=== PATIENT | female | born 1960 | race Caucasian/White ===

== ENCOUNTER 2022-03-30 10:52 | Inpatient (IN) | payer OTHER, SELFPAY ==
[2022-03-30] VITALS (36 sets, daily range): BP systolic 101–165; BP diastolic 86–124; PULSE 96–169; RESP 16–30; TEMP 36.2–36.9; O2SAT 95–100
--- NOTE | ~2022-03-30 | XR_ITS ---
EXAMINATION: XR chest 2V DATE: 04/01/2022 14:38 INDICATION: Shortness of breath TECHNIQUE: PA and lateral views of the chest are obtained. COMPARISON: 03/30/2022 FINDINGS: There are increasing airspace opacities of the lung bases. Small pleural effusions are pres ent. There is no pneumothorax. The cardiomediastinal silhouette is normal. There is mild thoracic spo ndylosis. A suture anchor is noted in right humeral head. IMPRESSION: 1. Increasing airspace opacities of the lung bases, consistent with atelectasis versus pneumonia. 2. Small pleural effusions. Reviewed, dictated and finalized at location A.
--- NOTE | ~2022-03-30 | XR_ITS ---
EXAMINATION: XR chest 2V DATE: 03/30/2022 11:56 INDICATION: Cough and chest pain TECHNIQUE: AP and lateral views of the chest are obtained. COMPARISON: None available FINDINGS: There are airspace opacities of the lower lobes and right middle lobe. Small pleural effusi ons are present. There is no pneumothorax. The cardiomediastinal silhouette is normal. There is mild thoracic spondylosis. IMPRESSION: 1. Airspace opacities of the lung bases and right middle lobe, consistent with atelectasis versus pne umonia. 2. Small pleural effusions. Reviewed, dictated and finalized at location A. IMPRESSION: 1. Airspace opacities of the lung bases and right middle lobe, consistent with atelectasis versus pneumonia. 2. Small pleural effusions.
--- NOTE | ~2022-03-30 | CT_ITS ---
EXAMINATION: CTA chest PE protocol DATE: 03/30/2022 13:48 INDICATION: Chest pain and cough TECHNIQUE: Computed tomography angiography (CTA) of the chest was performed with 100 mL Omnipaque-350 intravenous contrast timed to evaluate the pulmonary arteries. Coronal maximum intensity projection 3D-reconstructions were created by the technologist. The dose-length product (DLP) was 233.02 mGy-cm. Automated exposure control and iterative reconstruction technique were employed. COMPARISON: None. FINDINGS: The pulmonary arteries are well-opacified. No pulmonary embolism is identified. There are s mall pleural effusions, right greater than left. There is no pneumothorax. Mild emphysema is noted. T here is minimal dependent atelectasis. The lungs are free of focal airspace opacities. There is mild bilateral hilar lymphadenopathy, likely reactive. The heart size is normal. There is mild thoracic sp ondylosis. IMPRESSION: 1. No pulmonary embolus. 2. Small pleural effusions, right greater than left. Reviewed, dictated and finalized at location A.
--- NOTE | 2022-03-30 10:53 | ECG_ITS ---
Measurements Intervals [place] Rate: 162 P: SD: 0 QRS: 78 QRSD: 75 T: 43 QT: 268 QTc: 440 Interpretive Statements ATRIAL FIBRILLATION WITH RAPID VENTRICULAR RESPONSE POOR R-WAVE PROGRESSION NONSPECIFIC ST SEGMENT CHANGES ABNORMAL RHYTHM ECG NO PREVIOUS ECG AVAILABLE FOR COMPARISON Electronically Signed On 03-31-2022 7:05:06 CDT by Gasper Baptiste M.D.
[2022-03-30] MEDS: SODIUM CHLORIDE 0.9% IV 1,000 ML 999 ML IV CONT ×2 (11:18→11:28)
--- NOTE | 2022-03-30 11:18 | ED.GENADULT ---
HPI - General Adult General Chief complaint: Chest Pain Stated complaint: chest pain Time Seen by Provider: 03/30/22 11:09 History of Present Illness HPI narrative: 61-year-old female with history of daily drinking presents to the emergency department for evaluation of rapid heart rate for approximately the last week. Patient states that when she wakes up in the morning she feels that her has been racing. Patient has not had follow-up with her primary care physician for this previously. Patient denies any prior history of PA. Patient denies any prior history of atrial fibrillation, PE or DVT. Patient denies any associated chest pain with this but states she does have some shortness of breath. Patient states she does drink beer occasionally but denies drinking heavily daily. Patient denies any prior history of alcohol withdrawal. Related Data Home Medications Medication Instructions Recorded Confirmed No Home Medications 03/30/22 03/30/22 Allergies Allergy/AdvReac Type Severity Reaction Status Date / Time No Known Allergies Allergy Unknown Verified 03/30/22 11:16 Review of Systems Review of Systems: CONSTITUTIONAL: Denies fever, chills, or sweats. EYES: Denies visual changes, redness, or discharge. ENT: Denies rhinorrhea, congestion, sore throat, or otalgia. CARDIOVASCULAR: Denies chest pain but does report her palpitations for the past week, see HPI RESPIRATORY: Denies cough or dyspnea. GASTROINTESTINAL: Denies abdominal pain, nausea, vomiting, or diarrhea. GENITOURINARY: Denies dysuria or hematuria. SKIN: Denies rash or itching. MUSCULOSKELETAL: Denies back pain, joint pain, or myalgia. NEUROLOGIC: Denies headache, numbness, or weakness. PSYCHIATRIC: Denies anxiety or depression. [facility] Past Medical History Medical History (Updated 03/30/22 @ 18:27 by Bryan Watson MD) Daily consumption of alcohol Hypertension Nicotine dependence Surgical History Surgical History (Updated 03/30/22 @ 17:01 by Vickie Cruz PA-C) History of colonoscopy with polypectomy History of open reduction and internal fixation (ORIF) procedure Repair right 2nd toe fracture. History of repair of right rotator cuff Family History Family History Mother COPD (chronic obstructive pulmonary disease) Father Metastatic lung cancer (metastasis from lung to other site) Social History Social History (Updated 03/30/22 @ 17:02 by Vickie Cruz PA-C) Social History: Surrogate decision maker: Monico Fabian, spouse. Code status: Full code. Smoking packs per day: 1 Smoking cigarettes per day: 20.0 Years smoked: 45 Smoking pack-years: 45.00 Smoking status: Current every day smoker Tobacco type: cigarettes Alcohol intake: current Drinks per week: 24 Substance use: never Living arrangements: with family Additional living arrangements comments: The patient lives with her in [place]. They have 1 adult son and 4 grandsons. Additional occupation/education comments: Works in [employer] for [employer]. Spiritual care concerns: No Exam Narrative: APPEARANCE: Well appearing, no pain, no distress, well-nourished. HEAD: normocephalic, atraumatic. EYES: PERRLA/EOMI, conjunctivae clear. NOSE: Normal no drainage. THROAT: Pharynx clear, no exudate. NECK: Supple. No adenopathy, no masses. RESPIRATORY: Airway patent, respirations nonlabored. Clear to auscultation bilaterally, no rales, rhonchi, wheezing. CARDIOVASCULAR: Tachycardia, atrial fibrillation ABDOMINAL: Soft, nontender, nondistended, normal bowel sounds MUSCULOSKELETAL: Moves all extremities. Strength/ROM intact, No edema, No calf tenderness. NEURO: Alert. Cranial nerves II through XII intact. Grossly intact SKIN: Warm, dry. Normal Color Course Course Emergency Course: On EKG patient's heart rate was 162. Patient was started on Cardizem bolus and Cardizem drip for atrial fibrillation
[2022-03-30 11:19] LABS: Basophils Absolute Auto 0.1 K/mm3 (0.0-0.1); Basophils Percent Auto 0.7 % (0.2-1.2); Eosinophils Absolute Auto 0.1 K/mm3 (0-0.3); Eosinophils Percent Auto 0.8 % (0-4.4); Hematocrit 55.2 % (37.0-47.0); Immature Granulocyte Absolute 0.02 K/mm3 (0.00-0.031); Immature Granulocyte Percent A 0.2 % (0-0.5); Lymphocytes Absolute Auto 1.31 K/mm3 (0.9-3.2); Lymphocytes Percent Auto 15.3 % (18.3-44.2); Mean Corpuscular HGB Conc 32.6 g/dl (32-36); Mean Corpuscular Hemoglobin 31.4 pg (26-34); Mean Corpuscular Volume 96.3 fl (80-100); Mean Platelet Volume 11.2 fl (7.4-10.4); Monocytes Absolute Auto 0.7 K/mm3 (0.1-0.6); Monocytes Percent Auto 7.6 % (2.6-8.5); Neutrophils Absolute Auto 6.5 K/mm3 (1.3-6.7); Neutrophils Percent Auto 75.4 % (45.5-73.1); Platelet Count Result 217 k/mm3 (150-375); Red Blood Count 5.73 M/mm3 (4.2-5.4); Red Cell Distribution Width 14.4 % (11.5-14.5); White Blood Count 8.6 K/mm3 (4.5-10.0)
[2022-03-30] MEDS: dilTIAZem HCl INJ 25 MG/5 ML VIAL 10 MG IV PUSH (11:19)
[2022-03-30] MEDS: THIAMINE HCL 200 MG/2 ML VIAL 100 MG IV PUSH (11:27)
[2022-03-30] MEDS: ASPIRIN 81 MG CHEWABLE TABLET 324 MG PO (11:27)
[2022-03-30] MEDS: dilTIAZem 100 MG/100 ML 100 MG/100 ML BAG IV CONT (11:28)
[2022-03-30 11:29] LABS: Alanine Aminotransferase 28 U/L (6-35); Alkaline Phosphatase 156 U/L (38-126); Anion Gap 10 mmol/L (8-16); Aspartate Amino Transferase 39 U/L (14-36); Bilirubin,Total 2.1 mg/dL (0.2-1.3); Blood Urea Nitrogen 9 mg/dL (7-17); Calcium 10.1 mg/dL (8.4-10.2); Carbon Dioxide 25 mmol/L (22-30); Chloride 107 mmol/L (98-107); Estimated CRCL calculation 63 ml/min; Estimated Glomerular Filt Rate > 60; Glucose 100 mg/dL (65-110); Lipase 82 U/L (23-300); Potassium 5.1 mmol/L (3.4-5.0); Sodium 142 mmol/L (137-145)
[2022-03-30 11:34] LABS: INR 1.1; Partial Thromboplastin Time 30.5 SECONDS (22.3-36.8); Prothrombin Time 14.1 Seconds (11.1-14.7)
[2022-03-30 11:40] LABS: Troponin I < 0.012 ng/mL (0.000-0.034)
[2022-03-30 11:56] LABS: Ethanol < 10 mg/dL (<10)
[2022-03-30 11:58] LABS: D Dimer 1.18 ug/mL (<0.48)
[2022-03-30 13:16] LABS: SARS-CoV-2 RNA PCR Negative
[2022-03-30 13:25] LABS: Amphetamine Screen Urine Negative (Negative); Barbiturate Screen Urine Negative (Negative); Benzodiazepines Screen Urine Negative (Negative); Cannabinoid Screen Urine Negative (Negative); Cocaine Screen Urine Negative (Negative); Methadone Screen Urine Negative (Negative); Opiate Screen Urine Negative (Negative); Phencyclidine Screen Urine Negative (Negative)
[2022-03-30 14:22] LABS: Troponin I < 0.012 ng/mL (0.000-0.034)
[2022-03-30] MEDS: ENOXAPARIN 80 MG/0.8 ML SYRINGE 68 MG SUB-Q (15:04)
--- NOTE | 2022-03-30 15:23 | ADMGEN ---
This patient, Loreto Fabian, was admitted to IMU Room 202-01 at 1514.Patient/family oriented to hospital policies and general routines including ID bracelet, bed and alarms, visiting hours, pain management, procedures, bathroom and other care routines, personal items, smoking policy, room service/diet, and visiting hours. Information on how to activate the Rapid Response Team has been discussed. Patient/Family are encouraged to report perceived risks to care and to ask questions if they do not understand what they are told or what they should do.
--- NOTE | 2022-03-30 16:30 | PM.IMHP ---
H&P: HPI History of Present Illness Date/Time: 03/30/22 16:30 Chief Complaint: Palpitations. Narrative: This is a 61-year-old female smoker without significant medical history presented to the emergency department from home for evaluation of palpitations. For the past week or so she has been waking up in the middle of the night with a sensation of racing heart, palpitations, shortness of breath, and and occasional dry cough. Because of the symptoms, she has not been sleeping well and she has been more tired during the day, even nodding off of work. She has been monitoring her blood pressures at home and reports seeing numbers as high as 150/90; previous doctors have said that her blood pressures were bit on the high side however she has not yet needed to be placed on medication. Today she was found to be in atrial fibrillation with rapid ventricular response (ventricular rate was 169 on arrival) and she is being admitted in this setting for further treatment evaluation. She is currently on a Cardizem at 15/hour with improvement in her rate; her symptoms have much improved. She has never had similar symptoms and has no known history of cardiac dysrhythmia, coronary artery disease, valvular heart disease, thyroid disease, or sleep apnea. Typically she will drink 1 to 2 cups of coffee a day and she consumes about 3 cans of beer a night. On occasion she will have an energy drink but that is infrequent. She denies drug use. Review of Systems Review of Systems: Twelve systems were reviewed. No syncope or presyncope. Mild rhinorrhea which she attributes to allergies. She has had a mostly dry cough since these palpitations started. No exertional chest pain. No nausea, vomiting, diarrhea, or constipation. No significant hair loss. No recent change in vision. She had mild pedal edema yesterday but that is improved today. Does endorse mild orthopnea. She and her do not sleep in the same room as both of them snore. She denies paroxysmal nocturnal dyspnea and she has never had any witnessed apneic episodes. No daytime somnolence aside from last week. Except as documented, all other systems were reviewed and are negative. [facility] Past Medical History Medical History (Updated 03/30/22 @ 17:12 by Vickie Cruz PA-C) Daily consumption of alcohol Hypertension Nicotine dependence Surgical History Surgical History (Updated 03/30/22 @ 17:01 by Vickie Cruz PA-C) History of colonoscopy with polypectomy History of open reduction and internal fixation (ORIF) procedure Repair right 2nd toe fracture. History of repair of right rotator cuff Family History Family History Mother COPD (chronic obstructive pulmonary disease) Father Metastatic lung cancer (metastasis from lung to other site) Social History Social History (Updated 03/30/22 @ 17:02 by Vickie Cruz PA-C) Social History: Surrogate decision maker: Monico Fabian, spouse. Code status: Full code. Smoking packs per day: 1 Smoking cigarettes per day: 20.0 Years smoked: 45 Smoking pack-years: 45.00 Smoking status: Current every day smoker Tobacco type: cigarettes Alcohol intake: current Drinks per week: 24 Substance use: never Living arrangements: with family Additional living arrangements comments: The patient lives with her in [place]. They have 1 adult son and 4 grandsons. Additional occupation/education comments: Works in [email or web address] for [employer]. Spiritual care concerns: No Meds Home Medications and Allergies Home Medications Medication Instructions Recorded Confirmed Type No Home Medications 03/30/22 03/30/22 History Allergies Allergy/AdvReac Type Severity Reaction Status Date / Time No Known Allergies Allergy Unknown Verified 03/30/22 11:16 Vital Signs Vital Signs - 24 hr 03/30/22 11:02 03/30/22 11:14 03/30/22 11:28 Temperature 97.1 F L Pulse Rate
[2022-03-30 17:42] LABS: Troponin I < 0.012 ng/mL (0.000-0.034)
[2022-03-30 18:11] LABS: Alveolar/Arterial O2 Gradient 40.9 mmHg; Base Excess ABG -3.1 mEq/l (+/-2.0); Fractional Inspired Oxygen 21 %; HCO3 ABG 19.5 mEq/l (22.0-26.0); Methemoglobin ABG 0.4 %THb (0-1.5); Oxygen Content ABG 21.9 %vol (16.0-22.0); Oxygen Saturation ABG 95.5 % (95.0-100.0); Oxyhemoglobin 93.9 % THb (90.0-100.0); PCO2 ABG 29.4 mmHg (35.0-45.0); PO2 ABG 73.6 mmHg (80.0-100.0); Reduced Hemoglobin 4.7 %THb (0-5.0); Total Hemoglobin 16.6 g/dL (12.0-18.0)
[2022-03-30 18:13] LABS: Modified Allen's Test Pass; Site Drawn RIGHT RADIAL
[2022-03-30] MEDS: dilTIAZem 100 MG/100 ML 100 MG/100 ML BAG 15 MG IV CONT (19:25)
--- NOTE | 2022-03-30 23:19 | PC.NURSE ---
03/30/22 at 2300- Pt placed on apnea link study per RT.
[2022-03-31] VITALS (17 sets, daily range): BP systolic 101–147; BP diastolic 80–97; PULSE 83–119; RESP 15–20; TEMP 36.1–36.9; O2SAT 94–97
[2022-03-31] MEDS: dilTIAZem 100 MG/100 ML 100 MG/100 ML BAG 15 MG IV CONT ×4 (01:21→21:47)
[2022-03-31] MEDS: ENOXAPARIN 80 MG/0.8 ML SYRINGE 65 MG SUB-Q (02:56)
[2022-03-31 05:37] LABS: Hematocrit 46.7 % (37.0-47.0); Mean Corpuscular HGB Conc 32.1 g/dl (32-36); Mean Corpuscular Hemoglobin 31.6 pg (26-34); Mean Corpuscular Volume 98.3 fl (80-100); Mean Platelet Volume 11.7 fl (7.4-10.4); Platelet Count Result 152 k/mm3 (150-375); Red Blood Count 4.75 M/mm3 (4.2-5.4); Red Cell Distribution Width 14.3 % (11.5-14.5); White Blood Count 5.9 K/mm3 (4.5-10.0)
[2022-03-31 05:53] LABS: Alanine Aminotransferase 19 U/L (6-35); Albumin Level 3.8 g/dL (3.5-5.1); Alkaline Phosphatase 102 U/L (38-126); Anion Gap 7 mmol/L (8-16); Aspartate Amino Transferase 28 U/L (14-36); Bilirubin,Total 1.7 mg/dL (0.2-1.3); Blood Urea Nitrogen 8 mg/dL (7-17); Calcium 8.6 mg/dL (8.4-10.2); Carbon Dioxide 21 mmol/L (22-30); Chloride 111 mmol/L (98-107); Estimated CRCL calculation 72 ml/min; Estimated Glomerular Filt Rate > 60; Glucose 79 mg/dL (65-110); Magnesium 1.8 mg/dL (1.6-2.3); Potassium 3.9 mmol/L (3.4-5.0); Sodium 139 mmol/L (137-145)
[2022-03-31 06:30] LABS: Hepatitis B Surface Antigen Negative (Negative)
[2022-03-31 06:35] LABS: HAV RESULT Negative (Negative); Hepatitis B Core IgM Result Negative (Negative)
[2022-03-31 06:47] LABS: Hepatitis C Virus Antibody Negative (Negative)
[2022-03-31] MEDS: THIAMINE HCL 100 MG TABLET PO (08:00)
[2022-03-31] MEDS: FOLIC ACID 1 MG TABLET PO (08:00)
[2022-03-31] MEDS: THERAPEUTIC MULTIVITAMINS/MINERALS TAB (*BKC) 1 TABLET PO (08:00)
--- NOTE | 2022-03-31 10:10 | PM.CNCAR ---
Assessment and Plan Assessment and plan (1) Atrial fibrillation with rapid ventricular response: Code(s): I48.91 - Unspecified atrial fibrillation Status: Acute Plan This is a 61-year-old woman without previous cardiovascular history presents with symptomatic atrial fibrillation with palpitations. By her history this arrhythmias been going on for at least a week or so. She is hemodynamically stable. Heart rate is better with a high dose of IV diltiazem but still moderately tachycardic at rest. I am going to add metoprolol to her regimen and start that today I am going to shift her anticoagulation from Lovenox to apixaban. Echocardiogram will be ordered for further evaluation of the structural basis of her heart. We will transition her probably to an oral regimen of diltiazem tomorrow after we see how she response to the addition of the metoprolol. If she remains hemodynamically stable and we can achieve good rate control I would anticipate discharge with rate control and/anticoagulation and attempt cardioversion in 4-6 weeks. Gasper Baptiste MD [facility] History of Present Illness History of Present Illness Consult date/time: 03/31/22 10:10 Reason For Visit: Afib RVR Narrative: This is a pleasant 61-year-old lady I am seeing at the request of the hospitalist for assistance with the management of atrial fibrillation. The patient is unknown to me prior to this encounter. She entered the hospital emergency room yesterday reporting the onset of palpitations about 1 week ago. Obviously she did not become particularly alarmed by the symptoms but since they persisted for a week she decided yesterday to come in and be evaluated. She says that she may be a bit more short of breath and she normally is but otherwise does not have any other symptoms or distress related to her arrhythmia. Despite her minimal symptomatology she was quite tachycardic with a heart rate in the high 160s in the emergency room. She was placed on intravenous diltiazem which has improved her heart rate into the 1 10-120 range on a 15 milligram/hour drip. She appears to be very comfortable and has no distress she has been anticoagulated with subcutaneous Lovenox. Laboratory data is otherwise unremarkable she did have troponin levels done for reasons that are not entirely clear they are normal. Her chest x-ray is essentially unremarkable and in this setting I am seeing her in consultation. Patient states that she was suspicious that she had atrial fibrillation as her is a patient with AFib for a number of years. Unfortunately he was not compliant with anticoagulation and has had a significant stroke. She has not been experiencing any sense of chest pain pressure or heaviness she does not have any orthopnea PND or edema. She has never had a syncopal episode. Laboratory data including TSH are normal Review of Systems Constitutional: Constitutional: Reports no additional constitutional complaints Eyes: Eyes: Reports no additional eye complaints ENT: Reports system reviewed and no additional complaints, except as documented Cardiovascular: Cardiovascular: Reports palpitations Respiratory: Respiratory: Reports dyspnea on exertion Gastrointestinal: Gastrointestinal: Reports no additional gastrointestinal complaints Musculoskeletal: Musculoskeletal: Reports no additional musculoskeletal complaints Integumentary/Breasts: Skin/Breast: Reports system reviewed and no additional complaints, except as docu Neurologic: Reports system reviewed and no additional complaints, except as documented Endocrine: Endocrine: Reports no additional endocrine complaints Hematologic/Lymphatic: Hematologic/Lymphatic: Reports no additional hematologic/lymphatic complaints Allergic/Immunologic: Allergic/Immunologic: Reports no additional allergic/immunologic complaints [facility] Past Medical History Medical History (Updated 03/30/22 @ 18:27 by Bryan Watson MD) Renea
--- NOTE | 2022-03-31 11:28 | PM.IMPN ---
Progress Note: A&P Assessment and Plan (1) Atrial fibrillation with rapid ventricular response: Code(s): I48.91 - Unspecified atrial fibrillation Status: Acute Assessment and Plan: Patient has had palpitation symptoms for the past week shows probably been in this rhythm since that time. COVID test is negative. Urine drug screen was negative. CTA was negative for PE but does show small bilateral pleural effusions. The effusions are probably related to mild fluid overload related to the AFib with RVR. TSH is normal. Suspect AFib related to her alcohol use. She was advised to stop alcohol use from now on. She voiced understanding of this. Diltiazem drip has been started and she is currently at 15 milligrams/hour. Heart rate is better controlled. CHADS2-VASc score of 2. She was changed to Eliquis. Cardiology been consulted. Patient is being transition to metoprolol. (2) Polycythemia: Code(s): D75.1 - Secondary polycythemia Status: Acute Assessment and Plan: Hemoglobin and hematocrit are 18 and 55.2% respectively. ABG 7.44/29/74 on RA. Repeated Hgb normal now at 15. Will follow. (3) Elevated LFTs: Code(s): R79.89 - Other specified abnormal findings of blood chemistry Status: Acute Assessment and Plan: May be related to daily alcohol use. Consider related to mild hepatic congestion. Abdominal exam remains benign. LFTs better. Monitor for now. (4) Nicotine dependence: Code(s): F17.200 - Nicotine dependence, unspecified, uncomplicated Status: Acute Assessment and Plan: Smoking cessation is encouraged and was discussed personally. (5) Daily consumption of alcohol: Code(s): Z78.9 - Other specified health status Status: Chronic Assessment and Plan: She states she has never had history of withdrawal seizures, signs/symptoms of withdrawal or delirium tremens. She was educated about the fact that the AFib is probably related to her alcohol use and she was encouraged to stop drinking alcohol. She voices understanding of this. CIWA score of 0. Continue thiamine and folate. Continue CIWA protocol. (6) Hypertension: Code(s): I10 - Essential (primary) hypertension Status: Acute Assessment and Plan: Blood pressures have been elevated as high as 165/124 and she likely has systemic hypertension. Blood pressures has improved on Cardizem drip. Continue to monitor closely. Subjective Date/time seen: 03/31/22 11:28 Interval history: 61yo female with hx of diet-controlled hypertension, daily alcohol use and tobacco abuse here for palpitations and found to have AFib with RVR. Assuming care. Chart reviewed. Patient denies any chest pain. Palpitations have resolved. Shortness of breath is much better. Her pedal edema has resolved. No pleuritic pain. No nausea or vomiting. She drinks 2-3 alcoholic drinks per night and sometimes up to 12 on a weekend night. She does snore but denies daytime somnolence or been told she has apneic spells. Exam Narrative: AF 98.0 147/84 97 16 96% ra Gen - NARD lying semi recumbent in bed Chest - CTA bilaterally, nml RR with prolonged expiratory phase CV -irregular irregular. S1-S2. Telemetry showing AFib controlled rate now. Abd - Soft, NT/ND, Positive BS Ext - No pedal edema. Negative Homans sign. 2+ DP pulses bilaterally. Psych - Nml mood and affect Skin - Warm and dry Objective Data Vital Signs Vital Signs: Vital Signs - 24 hr 03/30/22 11:30 03/30/22 11:31 03/30/22 11:45 Temperature Pulse Rate 147 H 144 H 124 H Pulse Rate [Monitor] Respiratory Rate 23 H 25 H 18 Blood Pressure 157/102 H 142/111 H Pulse Oximetry 98 Oxygen Delivery 03/30/22 11:46 03/30/22 11:59 03/30/22 12:00 Temperature Pulse Rate 132 H 138 H 138 H Pulse Rate [Monitor] Respiratory Rate 18 24 H 21 H Blood Pressure 129/115 H 147/118 H Pulse Oximetry 98 98 97
[2022-03-31] MEDS: METOPROLOL SUCCINATE EXT REL 100 MG TABCR PO (12:09)
[2022-03-31] MEDS: APIXABAN 5 MG TABLET PO (20:24)
[2022-04-01] VITALS (17 sets, daily range): BP systolic 120–142; BP diastolic 60–86; PULSE 81–119; RESP 14–20; TEMP 36.4–36.8; O2SAT 95–98
--- NOTE | 2022-04-01 | ECHO_ITS ---
Patient Info Name: Loreto Fabian Age: 61 years : 1960 Gender: Female Ht: 67 in Wt: 148 lbs BSA: 1.79 m2 HR: 109 bpm BP: 108 / 68 mmHg Heart Rhythm: Atrial Fibrillation Exam Date: 04/01/2022 9:00 AM Exam Location: [facility] Patient Status: Inpatient Admit Date: 03/30/2022 Staff Ordering Physician: Gasper Baptiste MD Retail Business Analyst: Isael Rand, LENCHO, RT Attending Provider: Cornell Chiu MD Referring Physician: Oliva ALONSO; Exam Type: CA echo doppler color flow Study Info Indications I21.4 - Non-ST elevation (NSTEMI) myocardial infarction Complete two-dimensional, color flow and Doppler transthoracic echocardiogram is performed. Summary 1. Complete two-dimensional, color flow and Doppler transthoracic echocardiogram is performed. 2. Left ventricular chamber dimension is normal. 3. Left ventricular systolic function is normal, estimated at 50-55%. 4. Left atrial chamber dimension is moderately enlarged. 5. There is mild mitral valve regurgitation. 6. Study done demonstrating atrial fibrillation with mildly accelerated ventricular response. Left Ventricle Left ventricular chamber dimension is normal. Left ventricular systolic function is normal, estimated at 50-55%. The left ventricular diastolic function is indeterminate. Right Ventricle Right ventricular chamber dimension is normal. Left Atria Left atrial chamber dimension is moderately enlarged. Right Atria Right atrial chamber dimension is normal. Aortic Valve The aortic valve is trileaflet. There is mild aortic valve sclerosis. Pulmonic Valve The pulmonic valve is not well visualized. Mitral Valve The mitral valve has normal leaflets. There is mild mitral valve regurgitation. Tricuspid Valve The tricuspid valve leaflets are normal. There is mild tricuspid valve regurgitation. Mild pulmonary hypertension, estimated pulmonary arterial systolic pressure is 40 mmHg. Pericardium/Pleural The pericardium appears normal. Aorta The aortic root size at the sinus of Valsalva is normal. Left Ventricular Outflow Tract Name Value Normal LVOT 2D LVOT Diameter 1.9 cm LVOT Doppler LVOT Peak Gradient 2 mmHg LVOT Mean Gradient 1 mmHg LVOT VTI 13 cm LVOT VTI/AV VTI Ratio 0.6 LVOT Stroke Volume 38 ml LVOT CO 3.1 l/min LVOT CI 1.7 l/min/m2 Mitral Valve Name Value Normal MV Doppler MV Peak Gradient 1 mmHg MV Mean Gradient 1 mmHg MV Decel [place] 801 cm/s2 MV PHT 32 ms MV Area (PHT) 6.9
[2022-04-01] MEDS: dilTIAZem 100 MG/100 ML 100 MG/100 ML BAG 15 MG IV CONT ×2 (04:03→11:42)
[2022-04-01 04:57] LABS: Anion Gap 5 mmol/L (8-16); Blood Urea Nitrogen 8 mg/dL (7-17); Calcium 8.8 mg/dL (8.4-10.2); Carbon Dioxide 23 mmol/L (22-30); Chloride 110 mmol/L (98-107); Estimated CRCL calculation 72 ml/min; Estimated Glomerular Filt Rate > 60; Glucose 95 mg/dL (65-110); Magnesium 1.8 mg/dL (1.6-2.3); Potassium 3.7 mmol/L (3.4-5.0); Sodium 138 mmol/L (137-145)
[2022-04-01] MEDS: FOLIC ACID 1 MG TABLET PO (08:41)
[2022-04-01] MEDS: METOPROLOL SUCCINATE EXT REL 100 MG TABCR PO (08:41)
[2022-04-01] MEDS: THERAPEUTIC MULTIVITAMINS/MINERALS TAB (*BKC) 1 TABLET PO (08:41)
[2022-04-01] MEDS: THIAMINE HCL 100 MG TABLET PO (08:41)
[2022-04-01] MEDS: APIXABAN 5 MG TABLET PO ×2 (08:42→20:34)
--- NOTE | 2022-04-01 10:41 | PM.IMPN ---
Progress Note: A&P Assessment and Plan (1) Atrial fibrillation with rapid ventricular response: Code(s): I48.91 - Unspecified atrial fibrillation Status: Acute Assessment and Plan: Patient with palpitations for the past week prior to admission. COVID test is negative. Urine drug screen was negative. CTA was negative for PE but does show small bilateral pleural effusions. The effusions are probably related to mild fluid overload related to the AFib with RVR. TSH was normal. Suspect AFib related to her alcohol use. She was advised to stop alcohol use. She voiced understanding of this. Diltiazem drip was started and she is currently at 15 milligrams/hour. Heart rate is better controlled. CHADS2-VASc score of 2. She was changed to Eliquis. Cardiology been consulted. Metoprolol added. Echo pending. Add Diltiazem and begin to wean off the Diltiazem drip. (2) Polycythemia: Code(s): D75.1 - Secondary polycythemia Status: Acute Assessment and Plan: Hemoglobin and hematocrit are 18 and 55.2% respectively. ABG 7.44/29/74 on RA. Repeated Hgb normal now at 15. Will follow. (3) Elevated LFTs: Code(s): R79.89 - Other specified abnormal findings of blood chemistry Status: Acute Assessment and Plan: May be related to daily alcohol use. Consider related to mild hepatic congestion. Abdominal exam remains benign. LFTs better. Monitor for now. (4) Nicotine dependence: Code(s): F17.200 - Nicotine dependence, unspecified, uncomplicated Status: Acute Assessment and Plan: Smoking cessation is encouraged and was discussed (5) Daily consumption of alcohol: Code(s): Z78.9 - Other specified health status Status: Chronic Assessment and Plan: She states she has never had history of withdrawal seizures, signs/symptoms of withdrawal or delirium tremens. She was educated about the fact that the AFib is probably related to her alcohol use and she was encouraged to stop drinking alcohol. She voices understanding of this. CIWA score remains 0. Continue thiamine and folate. Continue CIWA protocol. (6) Hypertension: Code(s): I10 - Essential (primary) hypertension Status: Acute Assessment and Plan: Blood pressures have been elevated as high as 165/124 and she likely has systemic hypertension. Blood pressures has improved on Cardizem drip. Continue to monitor closely. Plan DVT prophylaxis: Stephen Code status: full Subjective Date/time seen: 04/01/22 10:41 Interval history: 61yo female with hx of diet-controlled hypertension, daily alcohol use and tobacco abuse here for palpitations and found to have AFib with RVR. Slept well last night. No chest pain or shortness of breath. Does have dyspnea on exertion when walking to the bathroom. She states this is a new symptom. No pedal edema. Exam Narrative: AF 98.3 142/86 113 14 96% ra Gen - NARD lying semi recumbent in bed Chest - CTA bilaterally, nml RR CV -irregular irregular. S1-S2. Telemetry showing AFib with controlled rate, NSVT, 2 sec pauses. Abd - Soft, NT/ND, Positive BS Ext - No pedal edema Psych - Nml mood and affect Skin - Warm and dry Objective Data Vital Signs Vital Signs: Vital Signs - 24 hr 03/31/22 12:09 03/31/22 12:00 03/31/22 12:00 Temperature 98.0 F Pulse Rate 114 H 104 H 110 H Pulse Rate [Monitor] Respiratory Rate 16 Blood Pressure 132/97 H Pulse Oximetry 95 Oxygen Delivery 03/31/22 14:00 03/31/22 12:00 03/31/22 12:00 Temperature Pulse Rate 92 Pulse Rate [Monitor] 110 H Respiratory Rate Blood Pressure Pulse Oximetry 95 Oxygen Delivery Room Air 03/31/22 16:00 03/31/22 16:00 03/31/22 16:00 Temperature 98.5 F Pulse Rate 104 H 101 H Pulse Rate [Monitor] 101 H Respiratory Rate 16 Blood Pressure 127/82 Pulse Oximetry 95 Oxygen Delivery 03/31/22 16:00 03/31/22 18
--- NOTE | 2022-04-01 10:41 | PM.PNCARD ---
Progress Note: A&P Assessment and Plan (1) Atrial fibrillation with rapid ventricular response: Code(s): I48.91 - Unspecified atrial fibrillation Status: Acute Assessment and Plan: New diagnosis of atrial fibrillation which by patient's report of symptom onset probably began about a week ago. Rate control strategy is being pursued. Shifting from IV to oral diltiazem today. Continue p.o. metoprolol. Continue systemic a/c with apixaban. Anticipate d/c within next 24-48 hours provided rate remains controlled with oral diltiazem Subjective Date/time seen: 04/01/22 10:41 Cardiology follow up for atrial fibrillation Remains in atrial fibrillation but is rate controlled on diltiazem and metoprolol. She denies any palpitations or chest pain. Does have FLOOD, no SOB ar rest. Review of Systems Constitutional: Constitutional: Reports no additional constitutional complaints Eyes: Eyes: Reports no additional eye complaints ENT: Reports system reviewed and no additional complaints, except as documented Cardiovascular: Cardiovascular: Reports palpitations and Reports dyspnea on exertion Respiratory: Respiratory: Reports dyspnea on exertion Gastrointestinal: Gastrointestinal: Reports no additional gastrointestinal complaints Musculoskeletal: Musculoskeletal: Reports no additional musculoskeletal complaints Integumentary/Breasts: Skin/Breast: Reports system reviewed and no additional complaints, except as docu Neurologic: Reports system reviewed and no additional complaints, except as documented Endocrine: Endocrine: Reports no additional endocrine complaints and Reports palpitations Hematologic/Lymphatic: Hematologic/Lymphatic: Reports no additional hematologic/lymphatic complaints Allergic/Immunologic: Allergic/Immunologic: Reports no additional allergic/immunologic complaints Exam Const: General: comfortable and no acute distress HENMT: Mouth: Yes moist mucous membranes Eyes: Sclera: sclerae normal Pupils: Equal, round and reactive pupils present Neck: Neck: supple and no JVD Carotids: normal carotid upstroke and no bruits Resp: Effort & Inspection: normal respiratory effort Auscultation: clear to auscultation bilaterally Cardio: Rhythm: abnormal rhythm irregularly irregular GI: Auscultation: normal bowel sounds Skin: General skin exam: normal color Neuro: Cranial nerves: Yes Equal, round and reactive pupils present Other: Normal cognition Extrem: General: normal to inspection Other: No edema adequate distal pulses Objective Data Vital Signs Vital Signs: Vital Signs - 24 hr 03/31/22 12:09 03/31/22 12:00 03/31/22 12:00 Temperature 36.7 C Pulse Rate 114 H 104 H 110 H Pulse Rate [Monitor] Respiratory Rate 16 Blood Pressure 132/97 H Pulse Oximetry 95 Oxygen Delivery 03/31/22 14:00 03/31/22 12:00 03/31/22 12:00 Temperature Pulse Rate 92 Pulse Rate [Monitor] 110 H Respiratory Rate Blood Pressure Pulse Oximetry 95 Oxygen Delivery Room Air 03/31/22 16:00 03/31/22 16:00 03/31/22 16:00 Temperature 36.9 C Pulse Rate 104 H 101 H Pulse Rate [Monitor] 101 H Respiratory Rate 16 Blood Pressure 127/82 Pulse Oximetry 95 Oxygen Delivery 03/31/22 16:00 03/31/22 18:00 03/31/22 20:25 Temperature Pulse Rate 106 H 102 H Pulse Rate [Monitor] Respiratory Rate Blood Pressure Pulse Oximetry 95 Oxygen Delivery Room Air 03/31/22 20:00 03/31/22 20:00 03/31/22 20:00 Temperature 36.6 C Pulse Rate 103 H Pulse Rate [Monitor] 83 Respiratory Rate 20 Blood Pressure 109/80 Pulse Oximetry 97 95 Oxygen Delivery Room Air 03/31/22 20:00 03/31/22 23:19 03/31/22 23:19 Temperature Pulse Rate 83 Pulse Rate [Monitor] 94 Respiratory Rate Blood Pressure Pulse Oximetry 95 Oxygen Delivery Room Air 03/31/22 23:57 04/01/22 00:00 04/01/22 01:33 Temperature 36.6 C Pulse Rate
[2022-04-01] MEDS: dilTIAZem HCL 30 MG TABLET PO ×3 (11:43→23:51)
[2022-04-02] VITALS (15 sets, daily range): BP systolic 116–147; BP diastolic 74–96; PULSE 84–131; RESP 14–20; TEMP 36.5–36.7; O2SAT 95–97
[2022-04-02] MEDS: dilTIAZem HCL 30 MG TABLET PO (05:32)
[2022-04-02] MEDS: THERAPEUTIC MULTIVITAMINS/MINERALS TAB (*BKC) 1 TABLET PO (08:33)
[2022-04-02] MEDS: APIXABAN 5 MG TABLET PO ×2 (08:33→20:08)
[2022-04-02] MEDS: THIAMINE HCL 100 MG TABLET PO (08:33)
[2022-04-02] MEDS: FOLIC ACID 1 MG TABLET PO (08:34)
[2022-04-02] MEDS: METOPROLOL SUCCINATE EXT REL 100 MG TABCR PO (08:34)
--- NOTE | 2022-04-02 09:21 | PM.PNCARD ---
Progress Note: A&P Assessment and Plan (1) Atrial fibrillation with rapid ventricular response: Code(s): I48.91 - Unspecified atrial fibrillation Status: Acute Assessment and Plan: New diagnosis of atrial fibrillation which by patient's report of symptom onset probably began about a week ago. Rate control strategy is being pursued. Unfortunately has become tachycardic with transition to p.o. diltiazem. Will increase oral diltiazem to 60mg q6 today. If she does not respond adequately to this will plan for ADITI/CV tomorrow. NPO after midnight. Continue systemic anticoagulation with apixaban. Echo shows normal LV systolic function, EF 50-55%. Moderate left atrial enlargement. Mild pHTN, estimated PASP 40mmHg. Subjective Date/time seen: 04/02/22 09:21 Cardiology follow up for atrial fibrillation Feels okay today, asymptomatic aside from some FLOOD. No palpitations or chest pain. Review of Systems Constitutional: Constitutional: Reports no additional constitutional complaints Eyes: Eyes: Reports no additional eye complaints ENT: Reports system reviewed and no additional complaints, except as documented Cardiovascular: Cardiovascular: Reports palpitations and Reports dyspnea on exertion Respiratory: Respiratory: Reports dyspnea on exertion Gastrointestinal: Gastrointestinal: Reports no additional gastrointestinal complaints Musculoskeletal: Musculoskeletal: Reports no additional musculoskeletal complaints Integumentary/Breasts: Skin/Breast: Reports system reviewed and no additional complaints, except as docu Neurologic: Reports system reviewed and no additional complaints, except as documented Endocrine: Endocrine: Reports no additional endocrine complaints and Reports palpitations Hematologic/Lymphatic: Hematologic/Lymphatic: Reports no additional hematologic/lymphatic complaints Allergic/Immunologic: Allergic/Immunologic: Reports no additional allergic/immunologic complaints Exam Const: General: comfortable and no acute distress Other: Pleasant healthy-looking lady no distress of any kind. Lying comfortably in bed. Alert and oriented. HENMT: Mouth: Yes moist mucous membranes Eyes: Sclera: sclerae normal Pupils: Equal, round and reactive pupils present Neck: Neck: supple and no JVD Carotids: normal carotid upstroke and no bruits Other: Normal carotid pulses no audible bruits Resp: Effort & Inspection: normal respiratory effort Auscultation: clear to auscultation bilaterally Cardio: Rate: tachycardic Rhythm: abnormal rhythm irregularly irregular Other: No audible murmur GI: Auscultation: normal bowel sounds Skin: General skin exam: normal color Neuro: Cranial nerves: Yes Equal, round and reactive pupils present Other: Normal cognition Extrem: General: normal to inspection Other: No edema adequate distal pulses Objective Data Vital Signs Vital Signs: Vital Signs - 24 hr 04/01/22 10:44 04/01/22 11:42 04/01/22 12:00 Temperature 36.7 C Pulse Rate 92 92 81 Pulse Rate [Monitor] Respiratory Rate 14 Blood Pressure 120/85 Pulse Oximetry 96 Oxygen Delivery 04/01/22 12:00 04/01/22 12:00 04/01/22 10:00 Temperature Pulse Rate 97 Pulse Rate [Monitor] 99 Respiratory Rate Blood Pressure Pulse Oximetry 96 Oxygen Delivery Room Air 04/01/22 12:00 04/01/22 14:00 04/01/22 16:00 Temperature 36.4 C Pulse Rate 91 101 H 98 Pulse Rate [Monitor] Respiratory Rate 14 Blood Pressure 134/85 Pulse Oximetry 95 Oxygen Delivery 04/01/22 16:00 04/01/22 16:00 04/01/22 16:00 Temperature Pulse Rate 119 H Pulse Rate [Monitor] 119 H Respiratory Rate Blood Pressure Pulse Oximetry 96 Oxygen Delivery Room Air 04/01/22 18:01 04/01/22 18:00 04/01/22 20:00 Temperature 36.6 C Pulse Rate 118 H 108 H Pulse Rate [Monitor] Respiratory Rate 20 Blood Pressure 137/84 Pulse Oximetry 97 98 Oxyg
--- NOTE | 2022-04-02 10:58 | PM.IMPN ---
Progress Note: A&P Assessment and Plan (1) Atrial fibrillation with rapid ventricular response: Code(s): I48.91 - Unspecified atrial fibrillation Status: Acute Assessment and Plan: Patient with palpitations for the past week prior to admission. COVID test is negative. Urine drug screen was negative. CTA was negative for PE but does show small bilateral pleural effusions. The effusions are probably related to mild fluid overload related to the AFib with RVR. TSH was normal. Suspect AFib related to her alcohol use. She was advised to stop alcohol use. She voiced understanding of this. Diltiazem drip was started and she is currently at 15 milligrams/hour. Heart rate is better controlled. CHADS2-VASc score of 2. She was changed to Eliquis. Cardiology been consulted. Metoprolol added. Added oral Diltiazem yesterday and begin to wean off the Diltiazem drip. 04/02: Weaned off diltiazem drip April 01 at 12:37 p.m. Oral Diltiazem increased from 30 mg to 60 mg q.6 today by Cardiology, plan is for ADITI with cardioversion tomorrow if patient does not convert to sinus rhythm Echo from April 01, 2022 showed an EF of 50-55%, diastolic function unable to be determined, mild left atrial enlargement, mild pulmonary hypertension, no overt valvular disease noted (2) Polycythemia: Code(s): D75.1 - Secondary polycythemia Status: Acute Assessment and Plan: Hemoglobin and hematocrit are 18 and 55.2% respectively. ABG 7.44/29/74 on RA. Repeated Hgb normal now at 15. Will follow. 04/02: Hgb 16.2/Hct 50.3 (3) Elevated LFTs: Code(s): R79.89 - Other specified abnormal findings of blood chemistry Status: Acute Assessment and Plan: May be related to daily alcohol use. Consider related to mild hepatic congestion. Abdominal exam remains benign. LFTs better. Monitor for now. 04/02: LFTs WNL (4) Nicotine dependence: Code(s): F17.200 - Nicotine dependence, unspecified, uncomplicated Status: Acute Assessment and Plan: Smoking cessation is encouraged and was discussed (5) Daily consumption of alcohol: Code(s): Z78.9 - Other specified health status Status: Chronic Assessment and Plan: She states she has never had history of withdrawal seizures, signs/symptoms of withdrawal or delirium tremens. She was educated about the fact that the AFib is probably related to her alcohol use and she was encouraged to stop drinking alcohol. She voices understanding of this. CIWA score remains 0. Continue thiamine and folate. Continue CIWA protocol. 04/02: CIWA remains 0, will discontinue checks at this time (6) Hypertension: Code(s): I10 - Essential (primary) hypertension Status: Acute Assessment and Plan: Blood pressures have been elevated as high as 165/124 and she likely has systemic hypertension. Blood pressures has improved on Cardizem drip. Continue to monitor closely. 04/02: Blood pressure significantly improved, 130s to 140 systolic over 80 to 90s diastolic, anticipate this will continue to improve, will hold off on further treatment until AFib management completed by Cardiology Plan DVT prophylaxis: Stephaniequvaldemar Code status: full Subjective Date/time seen: 04/02/22 10:58 Interval history: 61yo female with hx of diet-controlled hypertension, daily alcohol use and tobacco abuse here for palpitations and found to have AFib with RVR. No overnight events noted. No chest pain or shortness of breath. No nausea, vomiting or diarrhea. No fevers or chills. Review of Systems Review of Systems: Twelve point review of systems was reviewed and is negative except as noted in the HPI Exam Narrative: General: Patient resting comfortably in bed, no acute distress on room air HEENT: Atraumatic, normocephalic, mucous membranes moist CV: irreg irreg, S1-S2, no murmurs heard, Lungs: Clear to auscultation bilaterally, no rales or crackles n
[2022-04-02 11:34] LABS: Hematocrit 50.3 % (37.0-47.0); Hemoglobin 16.2 g/dL (12.0-15.0); Mean Corpuscular HGB Conc 32.2 g/dl (32-36); Mean Corpuscular Hemoglobin 31.2 pg (26-34); Mean Corpuscular Volume 96.7 fl (80-100); Mean Platelet Volume 11.1 fl (7.4-10.4); Platelet Count Result 170 k/mm3 (150-375); Red Cell Distribution Width 14.1 % (11.5-14.5); White Blood Count 6.9 K/mm3 (4.5-10.0)
[2022-04-02 11:43] LABS: Alanine Aminotransferase 24 U/L (6-35); Alkaline Phosphatase 85 U/L (38-126); Anion Gap 7 mmol/L (8-16); Aspartate Amino Transferase 35 U/L (14-36); Bilirubin,Total 1.2 mg/dL (0.2-1.3); Blood Urea Nitrogen 9 mg/dL (7-17); Carbon Dioxide 24 mmol/L (22-30); Chloride 110 mmol/L (98-107); Estimated CRCL calculation 72 ml/min; Estimated Glomerular Filt Rate > 60; Glucose 135 mg/dL (65-110); Potassium 3.9 mmol/L (3.4-5.0); Sodium 141 mmol/L (137-145)
[2022-04-02] MEDS: dilTIAZem HCL 60 MG TABLET PO ×3 (12:10→23:34)
[2022-04-03] VITALS (22 sets, daily range): BP systolic 97–144; BP diastolic 59–111; PULSE 66–134; RESP 12–20; TEMP 35.7–36.6; O2SAT 95–98
[2022-04-03 04:38] LABS: Hematocrit 50.5 % (37.0-47.0); Hemoglobin 16.5 g/dL (12.0-15.0); Mean Corpuscular HGB Conc 32.7 g/dl (32-36); Mean Corpuscular Hemoglobin 31.4 pg (26-34); Mean Corpuscular Volume 96.2 fl (80-100); Platelet Count Result 163 k/mm3 (150-375); Red Blood Count 5.25 M/mm3 (4.2-5.4); White Blood Count 7.1 K/mm3 (4.5-10.0)
[2022-04-03 04:49] LABS: Alanine Aminotransferase 25 U/L (6-35); Albumin Level 3.9 g/dL (3.5-5.1); Alkaline Phosphatase 95 U/L (38-126); Anion Gap 4 mmol/L (8-16); Aspartate Amino Transferase 37 U/L (14-36); Bilirubin,Total 1.2 mg/dL (0.2-1.3); Blood Urea Nitrogen 10 mg/dL (7-17); Carbon Dioxide 26 mmol/L (22-30); Chloride 108 mmol/L (98-107); Estimated CRCL calculation 72 ml/min; Estimated Glomerular Filt Rate > 60; Glucose 95 mg/dL (65-110); Potassium 3.8 mmol/L (3.4-5.0); Sodium 138 mmol/L (137-145)
[2022-04-03] MEDS: dilTIAZem HCL 60 MG TABLET PO ×3 (06:04→17:35)
[2022-04-03] MEDS: FOLIC ACID 1 MG TABLET PO (08:36)
[2022-04-03] MEDS: APIXABAN 5 MG TABLET PO (08:36)
[2022-04-03] MEDS: THIAMINE HCL 100 MG TABLET PO (08:36)
[2022-04-03] MEDS: METOPROLOL SUCCINATE EXT REL 100 MG TABCR PO (08:36)
[2022-04-03] MEDS: THERAPEUTIC MULTIVITAMINS/MINERALS TAB (*BKC) 1 TABLET PO (08:36)
--- NOTE | 2022-04-03 09:20 | WPDHPUPDATE1 ---
History and Physical Update Update Date/Time: 04/03/22 09:20 Patient remains in atrial fibrillation, heart rate 90 120. Feeling better, less dyspnec walking to BR. However, pt prefers to go ahead w/ ADITI-guided CV today, rather than wait and have it done as an OPT. . No esophageal problems. Has been NPO and taking Eliquis in the last few days. History and Physical has been reviewed, including an updated exam of the patient. There are NO changes in the patient's condition. Risks, benefits, and alternatives have been discussed and questions answered. Patient agrees to proceed with procedure.
--- NOTE | 2022-04-03 09:23 | WPDMODSED ---
Moderate Sedation Note-Pt Data Patient Data Diagnosis: Atrial fibrillation Present Complaint: Atrial fibrillation, and FLOOD Procedure to be performed/Plan: ADITI guided cardioversion with conscious sedation Allergies Allergy/AdvReac Type Severity Reaction Status Date / Time No Known Allergies Allergy Unknown Verified 03/30/22 11:16 Home Medications Medication Instructions Recorded Confirmed Type No Home Medications 03/30/22 03/30/22 History Current Medications: Active Medications Apixaban (Apixaban 5 Mg Tablet) 5 mg PO Q12HR [facility] Last Admin: 04/03/22 08:36 Dose: 5 mg Diltiazem HCl (Diltiazem Hcl 60 Mg Tablet) 60 mg PO Q6HR [facility] Last Admin: 04/03/22 06:04 Dose: 60 mg Folic Acid (Folic Acid 1 Mg Tablet) 1 mg PO DAILY [facility] Last Admin: 04/03/22 08:36 Dose: 1 mg Sodium Chloride (Normal Saline Iv) 1,000 mls @ 30 mls/hr IV CONT .Q24H [facility] Metoprolol Succinate (Metoprolol Succinate Ext Rel 100 Mg Tabcr) 100 mg PO [facility] Last Admin: 04/03/22 08:36 Dose: 100 mg Multivitamins/Calcium (Therapeutic Multivitamins/Minerals Tab (*Bkc)) 1 tablet PO [facility] Last Admin: 04/03/22 08:36 Dose: 1 tablet Perflutren Lipid Microsphere (Perflutren Lipid Microspheres 1.5 Ml Vial Diluted To 10 Ml Total Volume) 0 ml IV PUSH ONCE PRN; Protocol PRN Reason: adequate visualization Thiamine HCl (Thiamine Hcl 100 Mg Tablet) 100 mg PO [facility] Last Admin: 04/03/22 08:36 Dose: 100 mg Sedation/Anesthesia: No previous sedation/anesthesia problems (including family history). [facility] Past Medical History Medical History Daily consumption of alcohol Hypertension Nicotine dependence Surgical History Surgical History History of colonoscopy with polypectomy History of open reduction and internal fixation (ORIF) procedure Repair right 2nd toe fracture. History of repair of right rotator cuff Family History Family History Mother COPD (chronic obstructive pulmonary disease) Father Metastatic lung cancer (metastasis from lung to other site) Social History Social History Social History: Surrogate decision maker: Monico Fabian, spouse. Code status: Full code. Smoking packs per day: 1 Smoking cigarettes per day: 20.0 Years smoked: 45 Smoking pack-years: 45.00 Smoking status: Current every day smoker Tobacco type: cigarettes Alcohol intake: current Drinks per week: 24 Substance use: never Living arrangements: with family Additional living arrangements comments: The patient lives with her in [place]. They have 1 adult son and 4 grandsons. Additional occupation/education comments: Works in [employer] for [employer]. Spiritual care concerns: No Mod Sed Physical Exam Physical Exam Pre Procedural Exam: Normal: Appearance, Eyes, Ears, Nose, Neck, Throat, Airway, Lungs, Heart Size, Neuro Exam, Abdomen, Extremities and Skin and Variation: Heart Rate (Tachycardic) and Heart Rhythm (Irregular) Hours since solid foods: 16 Hours since liquid intake: 16 Mallampati Classification: class II Internal Medicine - PN: Obj Da Vital Signs Vital Signs: Vital Signs - 24 hr 04/02/22 10:00 04/02/22 12:00 04/02/22 12:00 Temperature 97.7 F Pulse Rate 125 H 110 H 113 H Respiratory Rate 14 Blood Pressure 130/93 H Pulse Oximetry 97 Oxygen Delivery 04/02/22 14:00 04/02/22 16:00 04/02/22 16:00 Temperature 98.0 F Pulse Rate 101 H 84 86 Respiratory Rate 14 Blood Pressure 116/75 Pulse Oximetry 95 Oxygen Delivery 04/02/22 18:00 04/02/22 20:00 04/02/22 20:00 Temperature 98.0 F Pulse Rate 108 H 104 H 106 H Respiratory Rate 18 Blood Pressure 116/81 Pulse Oximetry 95 Oxygen Delivery 04/02/22 20:00 04/02/22 23:21 04/02/22 22:00 Temperatu
--- NOTE | 2022-04-03 11:49 | PC.NURSE ---
1010- to chest pain center for ADITI/ Cardioversion
--- NOTE | 2022-04-03 11:55 | PM.OP ---
Procedure Note - Brief Procedure Note - Brief Date of procedure: 04/03/22 Pre-op diagnosis: Afib RVR AFib RVR Post-op diagnosis: Same Procedure performed: Conscious sedation Transesophageal ECHO guided cardioversion Description of procedure: Unsuccessful cardioversion Surgeon: Carolina Whitlock MD Complications: None Condition: Stable Disposition: Floor Findings: Left ventricular function at the lower end of normal Unsuccessful cardioversion
--- NOTE | 2022-04-03 11:57 | W.PM.PROC2 ---
Procedure Note - Detailed Date of Procedure 04/03/22 Pre-op Diagnosis Afib RVR Post-op Diagnosis Same Procedure Performed Conscious sedation ADITI guided cardioversion\. Surgeon Carolina Whitlock MD Indications 61-year-old female who had palpitations for week prior to admission and was found to have AFib RVR. The AFib rate has been a bit difficult to control with metoprolol and diltiazem and we are proceeding with a transesophageal ECHO guided cardioversion. Findings Left ventricular function of the lower end of normal Unsuccessful cardioversion Description of Procedure Conscious sedation: Assessment: The patient has no history of anesthesia problems. The patient's oropharynx is clear. The patient was deemed to be a good candidate for conscious sedation. The patient had continuous hemodynamic and oximetric monitoring during the procedure. Start time: 1135 Completion time: 1152 Total conscious sedation time: 17 minutes Medications Used: Versed 4 mg IV push, fentanyl 100 mcg IV push Trained observer: Vince Jansen RN Outcome: The patient tolerated the procedure well with no complications. Procedure: After informed consent the patient had Hurricaine spray the hypopharynx. The patient had conscious sedation as described above. The transesophageal echo probe was introduced in the esophagus without difficulty. Imaging was obtained in multiplane views. Agitated saline was injected to evaluate for intracardiac shunting. The patient tolerated the procedure well with no complications. Findings: The left atrium was normal. There is no thrombus present in the left atrium or left atrial appendage. The atrial septum appeared intact. Mitral valve appeared normal, with no stenosis or prolapse. The left ventricle had had normal size and thickness with contractility at the lower limit of normal, EF 50-55%, and no segmental wall motion abnormalities. The aortic root and valve were normal. The ascending aorta, aortic arch and descending thoracic aorta were normal. The right atrium, tricuspid valve, right ventricle, pulmonic valve and pulmonic artery were all normal. There is no pericardial effusion. When agitated saline was injected intravenously there was no evidence of intracardiac shunting during normal respiration and abdominal compression. Colorflow Doppler Findings: Mild to moderate mitral regurgitation, trace tricuspid insufficiency Cardioversion: After informed consent and the above conscious sedation, the patient underwent elective electrical synchronized cardioversion with 150 joules, 200 joules, and 300 joules of biphasic energy. She exhibited a few sinus beats but quickly reverted to atrial fibrillation. There were no complications. Plan: Discharge home later today Extra metoprolol succinate 50 mg today Increase metoprolol succinate to 150 mg daily Change diltiazem to 240 mg daily Cont Eliquis Close OPT FU Probably plan on another cardioversion after loading with Multaq or Sotalol in a few weeks if the pt continues to have symptomatic a fib.. Urine Output 200 Complications None Disposition Floor
--- NOTE | 2022-04-03 13:15 | PC.NURSE ---
1300 returned to room post ADITI/ cardioversion- awake alert- denies pain- VSS- monitor atrial fibrillation @ 110
[2022-04-03] MEDS: METOPROLOL SUCCINATE EXT REL 50 MG TABCR PO (14:37)
--- NOTE | 2022-04-03 16:43 | PM.DS ---
DS: Admitting Diagnosis Discharge Date 04/03/22 Admitting Diagnosis Palpitations DS: Discharge Diagnosis Discharge Diagnosis (1) Atrial fibrillation with rapid ventricular response: Code(s): I48.91 - Unspecified atrial fibrillation Status: Acute Assessment and Plan: Patient with palpitations for the past week prior to admission. COVID test was negative. Urine drug screen was negative. CTA was negative for PE but does show small bilateral pleural effusions. The effusions are probably related to mild fluid overload related to the AFib with RVR. TSH was normal. Suspect AFib related to her alcohol use. She was advised to stop alcohol use. She voiced understanding of this. Diltiazem drip was started and heart rate became better controlled. CHADS2-VASc score of 2. She was on Lovenox but changed to Eliquis. Cardiology was consulted. Metoprolol started and oral Diltiazem added; able to wean off Diltiazem drip. Echo from April 01, 2022 showed an EF of 50-55%, diastolic function unable to be determined, mild left atrial enlargement, mild pulmonary hypertension, no overt valvular disease noted. She underwent elective electrical synchronized cardioversion with 150 joules, 200 joules, and 300 joules of biphasic energy.? She exhibited a few sinus beats but quickly reverted to atrial fibrillation. There were no complications. her medications were adjusted. She was able to be discharged home on 04/03/22 (2) Polycythemia: Code(s): D75.1 - Secondary polycythemia Status: Acute Assessment and Plan: Hemoglobin and hematocrit are 18 and 55.2% respectively. ABG 7.44/ on RA. Repeated Hgb 16.5. Apnea link showing AHI 10.6 and RI 11.5. Will need outpatient sleep study that can be arranged by her primary care doctor. (3) Elevated LFTs: Code(s): R79.89 - Other specified abnormal findings of blood chemistry Status: Acute Assessment and Plan: LFTs elevated on admission. Hepatitis panel negative. May be related to daily alcohol use. Consider related to mild hepatic congestion from the AFib/RVR. Abdominal exam remained benign. LFTs improved (4) Nicotine dependence: Code(s): F17.200 - Nicotine dependence, unspecified, uncomplicated Status: Acute Assessment and Plan: Smoking cessation was encouraged and was discussed. (5) Daily consumption of alcohol: Code(s): Z78.9 - Other specified health status Status: Chronic Assessment and Plan: She states she has never had history of withdrawal seizures, signs/symptoms of withdrawal or delirium tremens. CIWA score remained 0. We added thiamine and folate. She was educated about the fact that the AFib is probably related to her alcohol use and she was encouraged to stop drinking alcohol. She voices understanding of this. w (6) Hypertension: Code(s): I10 - Essential (primary) hypertension Status: Acute Assessment and Plan: Blood pressures was elevated as high as 165/124 and she likely has systemic hypertension. Blood pressures have improved on diltiazem and metoprolol. DS: Summary Hospital Course Reason for hospitalization: 61yo female with hx of diet-controlled hypertension, daily alcohol use and tobacco abuse here for palpitations and found to have AFib with RVR. Please see H&P for details. Hospital Course: Please see above for details of hospital course. Status at Discharge Cognitive/behavioral status at discharge: stable Time Spent with Patient Time attestation: Total time spent providing and/or coordinating discharge services: 32 minutes Time spent: Greater than 30 minutes Exam Narrative: AF 97.2 116/77 91 16 98% ra Gen - NARD sitting at the side of the bed Chest - CTA bilaterally, nml RR CV -irregular irregular. S1-S2. Telemetry showing AFib with controlled rate Abd - Soft, NT/ND, Positive BS Ext - No pedal edema Psych - Nml mood and affect; ea
== END 2022-04-03 17:39 | disposition home or self-care (01) | DRG 310 ==
LOC: ANHED 11:52 → ANHIMU 14:39
PROVIDERS: Internal Medicine Cardiovascular Disease; Physician Assistant; Student in an Organized Health Care Education/Training Program; Admitting Provider Family Medicine; Emergency Provider Emergency Medicine; PCP Physician Assistant; Visit Provider Internal Medicine
PROC: 5A2204Z Restoration of Cardiac Rhythm, Single (ICD-10-PCS; CPT 93312; principal; 2022-04-03 11:30)
PROC: 5A2204Z Restoration of Cardiac Rhythm, Single (ICD-10-PCS; 2022-04-03 11:30)
DX: I48.91 Unspecified atrial fibrillation (principal); I10 Essential (primary) hypertension; D75.1 Secondary polycythemia; F17.210 Nicotine dependence, cigarettes, uncomplicated; Z72.89 Other problems related to lifestyle; Z20.822 Contact with and (suspected) exposure to COVID-19
CPT/HCPCS: 36415; 36600; 71046; 71275; 80048; 80053; 80074; 80307; 82375; 82805; 83050; 83690; 83735; 84443; 84484; 85025; 85027; 85380; 85610; 85730; 92960; 93005; 93306; 93312; 93320; 93325; 94762; 96365; 96366; 96372; 96375; 96376; 99285; A9270; C9803; G0378; J1650; J2250; J2310; J3010; J3411; J7030; J7040; Q9967; U0003; U0005

== ENCOUNTER 2023-02-25 11:58 | Outpatient (CLI) | payer OTHER, SELFPAY ==
--- NOTE | ~2023-02-25 | MM_ITS ---
EXAMINATION: MM screening [facility] BI [facility] [place] HISTORY: Screening mammogram TECHNIQUE: Craniocaudal and mediolateral oblique 3-D tomosynthesis images were obtained and synthetic 2-D images were generated. CAD analysis was submitted and interpreted. COMPARISON: 02/25/2017, 09/06/2014, 01/25/2014, 01/18/2014 BREAST PARENCHYMAL COMPOSITION: The breasts are heterogeneously dense, which may obscure small masses . FINDINGS: No suspicious mass, calcification, or architectural distortion are identified in either andre ast to suggest malignancy. There has been no suspicious interval change. IMPRESSION: 1. No mammographic evidence of malignancy. 2. Recommend routine screening mammography in one year. BI-RADS Category 1: Negative Reviewed, dictated and finalized at location A.
--- NOTE | ~2023-02-25 | DEXA_ITS ---
Bone Density Report Name: JINNY POLK Age: 62 Sex: Female Ethnicity: White Date of : 1960 Indication: postmenopausal; screening for osteoporosis; height loss; Referring Provider: CYNTHIA, MICHAEL Riggs Study: Bone densitometry was performed. Exam Date: February 25, 2023 Accession number: [id number] Bone Density: Region BMD T-score Z-score Classification AP Spine (L1-L4) 1.105 0.5 2.0 Normal Femoral Neck (Left) 0.635 -1.9 -0.6 Osteopenia Total Hip (Left) 0.730 -1.7 -0.7 Osteopenia Femoral Neck (Right) 0.626 -2.0 -0.7 Osteopenia Total Hip (Right) 0.730 -1.7 -0.7 Osteopenia Total Hip Mean 0.730 -1.7 -0.7 Osteopenia World Health Organization criteria for BMD impression classify patients as: Normal (T-score at or above -1.0), Osteopenia (T-score between -1.0 and -2.5), or Osteoporosis (T-score at or below -2.5). 10-year Fracture Risk(1): Major Osteoporotic Fracture 12% Hip Fracture 3.1% Reported Risk Factors: [place] (), Neck BMD=0.626, BMI=23.9, smoking, alcohol use (1) FRAX(R) Version 3.08. Fracture probability calculated for an untreated patient. Fracture probability may be lower if the patient has received treatment. Previous Exams: Region Exam Age BMD T-score BMD Change BMD Change Date g/cm2 vs Baseline vs Previous AP Spine(L1-L4) 02/25/2023 62 1.105 0.5 -0.089* -0.100* 01/18/2014 53 1.205 1.4 0.012 0.028* 07/23/2010 49 1.177 1.2 -0.016 -0.016 06/29/2007 46 1.193 1.3 Total Hip(Left) 02/25/2023 62 0.730 -1.7 -0.129* -0.091* 01/18/2014 53 0.820 -1.0 -0.038* -0.025 07/23/2010 49 0.845 -0.8 -0.013 -0.013 06/29/2007 46 0.859 -0.7 Total Hip(Right) 02/25/2023 62 0.730 -1.7 -0.147* -0.124* 01/18/2014 53 0.854 -0.7 -0.023 -0.018 07/23/2010 49 0.872 -0.6 -0.004 -0.004 06/29/2007 46 0.877 -0.5 *Denotes significance at 95% confidence level, LSC for AP Spine = 0.022 g/cm2, LSC for Total Hip = 0.027 g/cm2 Clinical Information Provided by Patient: Smokes Has 3 or more alcoholic drinks per day Has used the following medications: Vitamin D, MTV Patient maximum height was 67.0 Menopause Age: 58 No regular weight bearing exercise Drinks caffeinated beverages Onset of menses at age 17 Number of children 1 Impress
== END 2023-02-25 11:59 ==
LOC: MICIMG 11:59
PROVIDERS: PCP Family Medicine; Visit Provider Family Medicine
DX: Z12.31 Encounter for screening mammogram for malignant neoplasm of breast (principal); Z78.0 Asymptomatic menopausal state; M85.852 Other specified disorders of bone density and structure, left thigh; M85.851 Other specified disorders of bone density and structure, right thigh
CPT/HCPCS: 77063; 77067; 77080

== ENCOUNTER 2024-01-29 14:31 | Outpatient (CLI) | payer OTHER, SELFPAY ==
[2024-01-29 14:46] LABS: Basophils Absolute Auto 0.1 K/mm3 (0.0-0.1); Eosinophils Absolute Auto 0.2 K/mm3 (0-0.3); Eosinophils Percent Auto 3.1 % (0-4.4); Hematocrit 51.1 % (37.0-47.0); Hemoglobin 16.9 g/dL (12.0-15.0); Immature Granulocyte Absolute 0.02 K/mm3 (0.00-0.031); Immature Granulocyte Percent A 0.3 % (0-0.5); Lymphocytes Absolute Auto 2.34 K/mm3 (0.9-3.2); Lymphocytes Percent Auto 34.7 % (18.3-44.2); Mean Corpuscular HGB Conc 33.1 g/dl (32-36); Mean Corpuscular Hemoglobin 32.4 pg (26-34); Mean Corpuscular Volume 98.1 fl (80-100); Monocytes Absolute Auto 0.6 K/mm3 (0.1-0.6); Monocytes Percent Auto 8.9 % (2.6-8.5); Neutrophils Absolute Auto 3.5 K/mm3 (1.3-6.7); Platelet Count Result 156 k/mm3 (150-375); Red Blood Count 5.21 M/mm3 (4.2-5.4); Red Cell Distribution Width 13.8 % (11.5-14.5); White Blood Count 6.7 K/mm3 (4.5-10.0)
[2024-01-29 15:01] LABS: Alanine Aminotransferase 24 U/L (6-35); Albumin Level 5.1 g/dL (3.5-5.1); Alkaline Phosphatase 102 U/L (38-126); Anion Gap 9 mmol/L (4-12); Aspartate Amino Transferase 33 U/L (14-36); Bilirubin,Total 1.6 mg/dL (0.2-1.3); Blood Urea Nitrogen 17 mg/dL (7-17); Calcium 10.4 mg/dL (8.4-10.2); Carbon Dioxide 27 mmol/L (22-30); Chloride 107 mmol/L (98-107); Cholesterol 207 mg/dL (0-200); Estimated Glomerular Filt Rate > 60; Glucose 99 mg/dL (65-110); HDL Direct 89 mg/dL; Potassium 4.1 mmol/L (3.4-5.0); Sodium 143 mmol/L (137-145); Triglycerides 145 mg/dL (<150)
[2024-01-29 15:36] LABS: LDL Cholesterol Direct 96 mg/dL
[2024-01-29 22:09] LABS: Vitamin D 25 Hydroxy 97.1 ng/mL
== END 2024-01-29 14:32 | disposition home or self-care (01) ==
LOC: ANHLAB 14:33
PROVIDERS: PCP Nurse Practitioner Family; Visit Provider Nurse Practitioner Family
DX: I48.91 Unspecified atrial fibrillation (principal); R79.89 Other specified abnormal findings of blood chemistry; I10 Essential (primary) hypertension; D75.1 Secondary polycythemia; Z76.89 Persons encountering health services in other specified circumstances
CPT/HCPCS: 36415; 80053; 80061; 82306; 83036; 85025

== ENCOUNTER 2024-02-19 12:32 | Outpatient (CLI) | payer OTHER, SELFPAY ==
--- NOTE | ~2024-02-19 | CT_ITS ---
CT Scan of the Chest without Contrast: Clinical Indication: Lung cancer screening, nicotine dependence Technique: Contiguous sections were acquired throughout the chest without intravenous contrast. Dose reduction technique was used on this scan by utilizing automated exposure control and iterative recon struction technique. The dose-length product (DLP) was 79.48 mGy-cm. COMPARISON: 03/30/2022 Findings: There is no evidence of any significant mediastinal, hilar or axillary lymphadenopathy. The mediastin al soft tissues appear normal. There is no evidence of pleural or pericardial effusion. Stable 2 mm right upper lobe pulmonary nodule. Images through the upper abdomen reveal no abnormalities. Impression: Lung RADS 2: Benign appearance. 12 month follow-up screening CT advised. Reviewed, dictated and finalized at location . Impression: Lung RADS 2: Benign appearance. 12 month follow-up screening CT advised.
== END 2024-02-19 12:33 | disposition home or self-care (01) ==
LOC: ANHIMG 12:35
PROVIDERS: PCP Nurse Practitioner Family; Visit Provider Nurse Practitioner Family
DX: Z12.2 Encounter for screening for malignant neoplasm of respiratory organs (principal); Z87.891 Personal history of nicotine dependence
CPT/HCPCS: 71271

== ENCOUNTER 2024-03-04 15:50 | Outpatient (CLI) | payer OTHER, SELFPAY ==
--- NOTE | ~2024-03-04 | MM_ITS ---
EXAMINATION: MM screening [facility] HISTORY: Screening TECHNIQUE: Craniocaudal and mediolateral oblique 3-D tomosynthesis images were obtained and synthetic 2-D images were generated. CAD analysis was submitted and interpreted. COMPARISON: Comparison to multiple prior studies sequentially, with oldest reviewed study dated 02/25. BREAST PARENCHYMAL COMPOSITION: There are scattered areas of fibroglandular density. FINDINGS: There is no evidence of suspicious mass, calcification, or architectural distortion to sugg est malignancy in either breast. There has been no suspicious interval change. IMPRESSION: 1. No mammographic evidence of malignancy. 2. Recommend routine screening mammography in one year. BI-RADS Category 1: Negative Reviewed, dictated and finalized at location B.
== END 2024-03-04 15:51 | disposition home or self-care (01) ==
PROVIDERS: PCP Nurse Practitioner Family; Visit Provider Nurse Practitioner Family
DX: Z12.31 Encounter for screening mammogram for malignant neoplasm of breast (principal)
CPT/HCPCS: 77063; 77067

== ENCOUNTER 2024-04-22 01:28 | Day surgery (SDC) | payer OTHER, SELFPAY ==
[2024-04-09 10:04] VITALS: BMI 23.4
[2024-04-22 09:54] VITALS: BP 132/91; PULSE 116; RESP 20; TEMP 36.1; O2SAT 100
[2024-04-22] MEDS: LACTATED RINGERS 1,000 ML 150 ML IV CONT (10:04)
--- NOTE | 2024-04-22 10:47 | WPDANESEPPF ---
Anes - Initial Pre Proc Eval Procedure: Operation Date: 04/22/24 11:00 Proposed Procedures p Screening Colonoscopy - Te Lux DO Date/Time: 04/22/24 10:47 Surgeon: Te Lux DO Pre Op Diagnosis: Screening for malignant neoplasm of colon Patient Data Age: 63 Gender: F Height: 1.7 m Weight: 66.2 kg Last Vital Signs Temp 96.9 F L 04/22/24 09:54 Pulse 116 H 04/22/24 09:54 Resp 20 04/22/24 09:54 BP 132/91 H 04/22/24 09:54 Pulse Ox 100 04/22/24 09:54 O2 Del Method Room Air 04/22/24 09:54 Allergies Allergy/AdvReac Type Severity Reaction Status Date / Time No Known Allergies Allergy Unknown Verified 04/22/24 09:52 Home Medications Medication Instructions Recorded Confirmed Type apixaban 5 mg tablet (Eliquis) 5 mg PO Q12HR #60 tabs 04/03/22 04/09/24 Rx diltiazem HCl 240 mg 240 mg PO QAM #30 caps 04/03/22 04/09/24 Rx capsule,extended release 24 hr, controlled calcium carbonate 600 mg-vitamin 1 cap PO BID 01/22/24 04/09/24 History D3 12.5 mcg (500 unit) capsule (Calcium 600 with Vitamin D3) sotalol 80 mg tablet 80 mg PO BID 01/22/24 04/09/24 History Patient hx anesthesia problems: none Family hx anesthesia problems: none Results Review: All pre-operative results and documents have been reviewed as part of the pre-operative evaluation. [facility] Past Medical History Medical History (Updated 01/22/24 @ 14:36 by Bobbi Ahuja APRN) Afib Atrial fibrillation with rapid ventricular response Daily consumption of alcohol Hypertension Nicotine dependence Surgical History Surgical History History of colonoscopy with polypectomy History of open reduction and internal fixation (ORIF) procedure Repair right 2nd toe fracture. History of repair of right rotator cuff Family History Family History Mother COPD (chronic obstructive pulmonary disease) Father Metastatic lung cancer (metastasis from lung to other site) Alcoholism Social History Social History Social History: Surrogate decision maker: Monico Fabian, spouse. Code status: Full code. Smoking packs per day: 1 Smoking cigarettes per day: 20.0 Years smoked: 40 Smoking pack-years: 40.00 Smoking status: Current every day smoker Tobacco type: cigarettes Alcohol intake: current Drinks per week: 12 Alcohol use details: Beer and wine Substance use: never Do You Feel Safe in your Home?: Yes Lack of Transportation: No Lack of Food: Never True Current Housing: I Have Housing Concerned About Future Housing: No Difficulty Paying Gas/Electric Bills: No Difficulty Paying for Meds: No Currently Unemployed: No Education: High School Diploma/GED Difficulty w/ Childcare or Family Care: No Living arrangements: with family Additional living arrangements comments: The patient lives with her in [place]. They have 1 adult son and 4 grandsons. 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 Spiritual care concerns: No Anes - Eval Final PreProcedure Day of Procedure 04/22/24 10:47 Patient weight: normal Heart: irregular rhythm Lungs: clear to auscultation Airway: Mallampati scale class II Neurological: alert and oriented Last oral intake: >/= 8 hours ASA classification: III Emergent: no Anesthetic plan: proceed Anesthesia type and monitoring: general GIVS and standard monitoring Results Review: All pre-operative results and documents have been reviewed as part of the pre-operative evaluation. Informed Consent: The patient's anesthetic plan and its attendant risks and benefits were discussed with the patient/family/POA. Questions were solicited and answers provided to the satisfaction of the patient/family/POA.
--- NOTE | 2024-04-22 11:07 | PM.IMHP ---
H&P: HPI History of Present Illness Date/Time: 04/22/24 11:07 Chief Complaint: Screening for colorectal cancer Narrative: this is a 63-year-old woman who presents for colonoscopy. Her last colonoscopy was 10 years ago and was normal. She denies any hematochezia or melena. She denies any family history of colon cancer. Review of Systems Review of Systems: All systems reviewed & are unremarkable except as noted in HPI and below Constitutional: Constitutional: Denies chills, Denies fever(s), Denies headache(s) and Denies weight loss Eyes: Eyes: Denies change in vision ENT: Denies dizziness, Denies headache(s), Denies neck mass and Denies throat swelling Cardiovascular: Cardiovascular: Denies chest pain, Denies lightheadedness and Denies dyspnea Respiratory: Respiratory: Denies cough, Denies dyspnea and Denies wheezing Gastrointestinal: Gastrointestinal: Denies abdominal pain, Denies change in bowel habits, Denies nausea and Denies vomiting Genitourinary: Genitourinary: Denies hematuria and Denies dysuria Musculoskeletal: Musculoskeletal: Reports as per HPI Integumentary/Breasts: Skin/Breast: Reports as per HPI Neurologic: Denies dizziness and Denies headache(s) Allergic/Immunologic: Allergic/Immunologic: Denies throat swelling and Denies wheezing [facility] Past Medical History Medical History (Updated 04/22/24 @ 11:08 by Te Lux DO) Afib Atrial fibrillation with rapid ventricular response Daily consumption of alcohol Hypertension Nicotine dependence Surgical History Surgical History History of colonoscopy with polypectomy History of open reduction and internal fixation (ORIF) procedure Repair right 2nd toe fracture. History of repair of right rotator cuff Family History Family History Mother COPD (chronic obstructive pulmonary disease) Father Metastatic lung cancer (metastasis from lung to other site) Alcoholism Social History Social History Social History: Surrogate decision maker: Monico Fabian, spouse. Code status: Full code. Smoking packs per day: 1 Smoking cigarettes per day: 20.0 Years smoked: 40 Smoking pack-years: 40.00 Smoking status: Current every day smoker Tobacco type: cigarettes Alcohol intake: current Drinks per week: 12 Alcohol use details: Beer and wine Substance use: never Do You Feel Safe in your Home?: Yes Lack of Transportation: No Lack of Food: Never True Current Housing: I Have Housing Concerned About Future Housing: No Difficulty Paying Gas/Electric Bills: No Difficulty Paying for Meds: No Currently Unemployed: No Education: High School Diploma/GED Difficulty w/ Childcare or Family Care: No Living arrangements: with family Additional living arrangements comments: The patient lives with her in [place]. They have 1 adult son and 4 grandsons. Additional occupation/education comments: Works in [employer] for [email or web address]. Spiritual care concerns: No Meds Home Medications and Allergies Home Medications Medication Instructions Recorded Confirmed Type apixaban 5 mg tablet (Eliquis) 5 mg PO Q12HR #60 tabs 04/03/22 04/09/24 Rx diltiazem HCl 240 mg 240 mg PO QAM #30 caps 04/03/22 04/09/24 Rx capsule,extended release 24 hr, controlled calcium carbonate 600 mg-vitamin 1 cap PO BID 01/22/24 04/09/24 History D3 12.5 mcg (500 unit) capsule (Calcium 600 with Vitamin D3) sotalol 80 mg tablet 80 mg PO BID 01/22/24 04/09/24 History Allergies Allergy/AdvReac Type Severity Reaction Status Date / Time No Known Allergies Allergy Unknown Verified 04/22/24 09:52 Vital Signs Vital Signs - 24 hr 04/22/24 09:54 Temperature 36.1 C L Pulse Rate 116 H Respiratory Rate 20 Blood Pressure 132/91 H Pulse Oximetry 100 Oxygen Delivery Sahsa
[2024-04-22 11:36] VITALS: BP 127/84; PULSE 103; RESP 20; O2SAT 99
[2024-04-22 11:46] VITALS: BP 113/85; PULSE 110; RESP 20; O2SAT 99
[2024-04-22 11:56] VITALS: BP 144/101; PULSE 114; RESP 24; O2SAT 100
--- NOTE | 2024-04-22 13:38 | PC.NURSE ---
Spoke with pt on 04/09/24 at 1010 regarding stopping her Eliquis, last dose being 04/18/24. Pt stated understanding.
== END 2024-04-22 12:08 | disposition home or self-care (01) ==
PROVIDERS: PCP Nurse Practitioner Family; Visit Provider Surgery
PROC: 0DJD8ZZ Inspection of Lower Intestinal Tract, Via Natural or Artificial Opening Endoscopic (ICD-10-PCS; CPT 45378; principal; 2024-04-22 11:00)
DX: Z12.11 Encounter for screening for malignant neoplasm of colon (principal); K57.30 Diverticulosis of large intestine without perforation or abscess without bleeding; I48.91 Unspecified atrial fibrillation; I10 Essential (primary) hypertension; F17.210 Nicotine dependence, cigarettes, uncomplicated
CPT/HCPCS: 45378; J2704; J7120

== ENCOUNTER 2025-04-07 13:28 | Outpatient (CLI) | payer OTHER, SELFPAY ==
--- NOTE | ~2025-04-07 | MM_ITS ---
EXAMINATION: MM screening [facility] BI [facility] [place] HISTORY: Screening mammogram TECHNIQUE: Craniocaudal and mediolateral oblique 3-D tomosynthesis images were obtained and synthetic 2-D images were generated. CAD analysis was submitted and interpreted. COMPARISON: 02/06/2024, 02/25/2023 BREAST PARENCHYMAL COMPOSITION:Dense: The breasts are heterogeneously dense, which may obscure small masses. FINDINGS: No suspicious mass, calcification, or architectural distortion are identified in either andre ast to suggest malignancy. There has been no suspicious interval change. IMPRESSION: No mammographic evidence of malignancy. Recommend routine screening mammography in one year. BI-RADS Category 1: Negative Reviewed, dictated and finalized at location .
--- NOTE | ~2025-04-07 | DEXA_ITS ---
Bone Density Report Name: JINNY POLK Age: 64 Sex: Female Ethnicity: White Date of : 1960 Indication: osteopenia; height loss; Referring Provider: JACQUE RAM Study: Bone densitometry was performed. Exam Date: April 07, 2025 Accession number: [id number] Bone Density: Region BMD T-score Z-score Classification AP Spine(L1-L4) 1.065 0.2 1.8 Normal Femoral Neck (Left) 0.612 -2.1 -0.7 Osteopenia Total Hip (Left) 0.680 -2.1 -1.0 Osteopenia Femoral Neck (Right) 0.606 -2.2 -0.8 Osteopenia Total Hip (Right) 0.678 -2.2 -1.0 Osteopenia Total Hip Mean 0.679 -2.2 -1.0 Osteopenia World Health Organization criteria for BMD impression classify patients as: Normal (T-score at or above -1.0), Osteopenia (T-score between -1.0 and -2.5), or Osteoporosis (T-score at or below -2.5). 10-year Fracture Risk(1): Major Osteoporotic Fracture 11% Hip Fracture 2.8% Reported Risk Factors: [place] (), Neck BMD=0.612, BMI=23.8, smoking (1) FRAX(R) Version 3.08. Fracture probability calculated for an untreated patient. Fracture probability may be lower if the patient has received treatment. Previous Exams: -- Region Exam Age BMD T-score BMD Change BMD Change Date g/cm2 vs Baseline vs Previous -- AP Spine (L1-L4) 04/07/2025 64 1.065 0.2 -10.8%* -3.6%* 02/25/2023 62 1.105 0.5 -7.4%* -8.3%* 01/18/2014 53 1.205 1.4 1.0% 2.4%* 07/23/2010 49 1.177 1.2 -1.4% -1.4% 06/29/2007 46 1.193 1.3 Total Hip(Left) 04/07/2025 64 0.680 -2.1 -20.7%* -6.7%* 02/25/2023 62 0.730 -1.7 -15.0%* -11.0%* 01/18/2014 53 0.820 -1.0 -4.5%* -3.0% 07/23/2010 49 0.845 -0.8 -1.5% -1.5% 06/29/2007 46 0.859 -0.7 Total Hip(Right) 04/07/2025 64 0.678 -2.2 -22.6%* -7.1%* 02/25/2023 62 0.730 -1.7 -16.7%* -14.5%* 01/18/2014 53 0.854 -0.7 -2.6% -2.1% 07/23/2010 49 0.872 -0.6 -0.5% -0.5% 06/29/2007 46 0.877 -0.5 -- *Denotes significance at 95% confidence level, LSC for AP Spine = 0.022 g/cm2, LSC for Total Hip = 0.027 g/cm2 Clinical Information Provided by Patient: Smokes Has used the following medications: Vitamin D, Calcium Patient maximum height was 67.0 Menopause Age: 58 No regular weight bearing exercise Drinks caffeinated beverages Onset of menses at age 17 Number of children 1 Impression: The patient has low bone mass, based on the Right Total Hip T-score. The patient has an estimated ten-year risk of hip fracture of 2.8% and an estimated ten-year risk of major fracture of 11%, based on the WHO FRAX algorithm. The patient has risk factors, including: smoking. The BMD for the AP Spine (L1-L4) decreased, changing by -3.6% since the last DXA exam. The BMD for the Total Hip(Left) decreased, changing by -6.7% since the last DXA exam. The BMD for the Total Hip(Right) decreased, changing by -7.1% since the last DXA exam. Discussion: BONE DENSITY IS LOW AT ONE OR MORE SKELETAL SITES. This patient's lowest T-score is low at one or more skeletal sites. It meets the World Health Organization's (WHO) criteria for ?low bone mass? (T-score between -1.0 and -2.5). The patient's 10-year risk of fracture as calculated by FRAX is less than the threshold where pharmacological therapy is recommended by the National Osteoporosis Foundation (NOF). However, all treatment decisions require clinical judgment and consideration of individual patient factors, including patient preferences, comorbidities, previous drug use, risk factors not captured in the FRAX model (e.g., frailty, falls, vitamin D deficiency, increased bone turnover, interval significant decline in bone density) and possible under or overestimation of fracture risk by FRAX. The patient should follow a healthful lifestyle (good nutrition with adequate calcium and vitamin D, and appropriate weight-bearing exercise). Follow-Up: Consider repeating this study in 2 years to reassess this patient's status, or sooner if there is some new clinical indication. Reported by: DEBBIE on 04/07/2025 1:56:00 PM. Reviewed, dictated and finalized at location A.
== END 2025-04-07 13:29 | disposition home or self-care (01) ==
PROVIDERS: PCP Nurse Practitioner Family; Visit Provider Nurse Practitioner Family
DX: Z00.00 Encounter for general adult medical examination without abnormal findings (principal); M85.89 Other specified disorders of bone density and structure, multiple sites; I10 Essential (primary) hypertension; D75.1 Secondary polycythemia; I48.91 Unspecified atrial fibrillation; Z13.820 Encounter for screening for osteoporosis; Z12.11 Encounter for screening for malignant neoplasm of colon
CPT/HCPCS: 77063; 77067; 77080

== ENCOUNTER 2025-04-22 14:35 | Outpatient (CLI) | payer OTHER, SELFPAY ==
--- NOTE | ~2025-04-22 | CT_ITS ---
CT Scan of the Chest without Contrast: Clinical Indication: Lung cancer screening, nicotine dependence Technique: Contiguous sections were acquired throughout the chest without intravenous contrast. Dose reduction technique was used on this scan by utilizing automated exposure control and iterative recon struction technique. The dose-length product (DLP) was 61.63 mGy-cm. COMPARISON: 02/19/2024 Findings: There is no evidence of any significant mediastinal, hilar or axillary lymphadenopathy. The mediastin al soft tissues appear normal. There is no evidence of pleural or pericardial effusion. Focal pleural scarring or atelectasis in the lingula. A few tiny peripheral subcentimeter nodules in the right upper lobe are similar to prior exam. Images through the upper abdomen reveal no abnormalities. Impression: Lung RADS 2: Benign appearance. 12 month follow-up screening CT advised. Reviewed, dictated and finalized at [facility]. Impression: Lung RADS 2: Benign appearance. 12 month follow-up screening CT advised.
--- OUTSIDE RECORDS SUMMARY | 2025-04-22 14:41 | XMS_ITS | Referral Summary ---
Author Organization [facility] [address] [place] [address] [address] [place] [address] Care Team Providers Care Mill Roll Rewinder Name Role Phone Bobbi Ahuja NP Primary Care Provider [phone] Encounters Date Type Department Care Team Description 01/28/2025 Telephone [facility] Cardiology [address] [place] [address] Gasper Baptiste MD 01/21/2025 Telephone [facility] Cardiology [address] [place] [address] Gasper Baptiste MD from Last 3 Months Allergies No known active allergies Medications metoprolol XL (TOPROL-XL) 100 mg 24 hr tablet Take 1 tablet (100 mg total) by mouth daily 30 tablet 11 12/02/2024 Active dilTIAZem XR (DILT-XR) 240 mg 24 hr capsule Take 1 capsule (240 mg total) by mouth daily 90 capsule 3 01/28/2025 Active Eliquis 5 mg tablet Take 1 tablet (5 mg total) by mouth 2 (two) times a day 180 tablet 1 02/22/2025 Active Active Problems Problem Noted Date Diagnosed Date Paroxysmal atrial fibrillation 02/13/2023 Social History Tobacco Use Types Packs/Day Years Used Date Smoking Tobacco: Former Cigarettes 1 45 Tobacco Cessation:Counseling Given: Not Answered AUDIT-C Answer Date Recorded Q1: How often do you have a drink containing alcohol? 4 or more times a week 05/07/2022 Q2: How many drinks containi ng alcohol do you have on a typical day when you are drinking? 5 or 6 Q3: How often do you have si x or more drinks on one occasion? Weekly 05/07/2022 Comments Unknown Sex and Gender Information Value Date Recorded Sex Assigned at Not on file Legal Sex Female 2:44 AM [employer] Gender Identity Not on file Sexual Orientation Not on file Last Filed Vital Signs Vital Sign Reading Time Taken Comments Blood Pressure 134/84 12/02/2024 3:11 PM [employer] Pulse 106 12/02/2024 3:11 PM [employer] Temperature - - Respiratory Rate - - Oxygen Saturation 98% 12/02/2024 3:11 PM [employer] Inhaled Oxygen Concentration - - Weight 68.9 kg (151 lb 14.4 oz) 12/02/2024 3:11 PM [employer] Height 170.2 cm (5' 7) 12/02/2024 3:11 PM [employer] Body Mass Index 23.79 12/02/2024 3:11 PM [employer]IST Plan of Treatment Not on file Insurance [facility] [id number] Care Teams Mill Roll Rewinder Relationship Specialty Start Date End Date Bobbi Ahuja NP [address] [place] [address] PCP - General Nurse Practitioner 11/11/24
--- OUTSIDE RECORDS SUMMARY | 2025-04-22 14:41 | XMS_ITS | Data Portability ---
Author Organization [place] - [facility] [employer] Main Office Address [address] [place] [address] Assessment No assessment recorded. Plan of Treatment Reminders Order Date Submit Date Provider Last Modified By Organization Details Last Modified Time Details Appointments None recorded. Lab pap, IG + HPV 2022 023 FIDEL Not available 3 12:02:57 Referral gastroenter ologist referral 2022 023 [email or web address] 3 Alejandro Perkins MD, [address] [facility] [address], [facility] [address], [place], [address], 3 13:36:29 Procedures None recorded. Surgeries None recorded. Imaging None recorded. Medication Orders diltiazem CD 360 mg capsule,ext ended release 24 hr 2022 023 [email or web address] [id number], [address] [facility] [address], [place], [place], [id number], 3 12:45:04 Patient TargetsNo targets recorded. Patient InstructionsNo instructions recorded. 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 Referral for Screening for malignant neoplasm of colon Referring Physician: Chelo Pope, Family Medicine, Encounter Date: 06/05/2023 Results Created Date Observation Date Name Description Value Unit Range Abnormal Flag Note LastModifiedBy Organization Detail LastModifiedTime 11/12/19 23 11/13/2022 VITAM IN D,25- OH,TO HECTOR,I A vitamin D,25-oh,tota l,ia 22 NG/mL 30-100 low Vitam in D Statu s 25-OH Vitam in D: Defic iency : <20 ng/mL Insuf ficie ncy: 20 - 29 ng/mL Optim al: > or = 30 ng/mL For 25-OH Vitam in D testi ng on patie nts on D2-reaves pplem entat ion and patie nts for whom quant itati on of D2 and D3 fract ions is requi red, the Quest Assur eD(TM ) 25-OH VIT D, (D2,D 3), LC/MS /MS is recom jacinda d: order code 13810 (lea ents >2yrs ). See Note 1 Note 1 For addit ional infor bhakti phillip refer to http: //[facility] jesús Sheehan stDia gnost ics.c om/fa q/FAQ 199 (This link is being provi ded for infor gretchen nair/ nilam greenfield purpo ses only. ) Not Available [employer] [address] [address] [place], [address], 11/13/2022 07:56:30 11/12/19 23 11/13/2022 BASIC METAB OLIC PANEL glucose 81 mg/dL 65-99 normal Fasti ng refer ence inter magali Not Available [facility] [address] [address] [place], [address], 11/13/2022 07:56:29 11/12/19 23 11/13/2022 BASIC METAB OLIC PANEL urea nitrogen (BUN) 13 mg/dL 7-25 normal Not Available [employer] [address], [address], 11/13/2022 07:56:29 11/12/19 23 11/13/2022 BASIC METAB OLIC PANEL creatinine 0.79 mg/dL 0.50-1 .05 normal Not Available [facility] [address] [place], [address], 11/13/2022 07:56:29 11/12/19 23 11/13/2022 BASIC METAB OLIC PANEL eGFR 86 mL/mi n/1.7 3m2 > or = 60 normal The eGFR is based on the CKD-E PI 2020 equat ion. To calcu late the new eGFR from a previ ous Creat inine or Cysta tin C resul t, go to https ://nicolas hamilton.jyoti retana/cheri ortez s/ kdoqi /gfr% 5Fcal culat or Not Available [address], [address], 11/13/2022 07:56:29 11/12/19 23 11/13/2022 BASIC METAB OLIC PANEL BUN/creatini ne ratio not applic able (calc ) 6-22 Not Available [address], [address], 11/13/2022 07:56:29 11/12/19 23 11/13/2022 BASIC METAB OLIC PANEL sodium 143 mmol/ L 135-14 6 normal Not Available [address], [address], 11/13/2022 07:56:29 11/12/19 23 11/13/2022 BASIC METAB OLIC PANEL potassium 4.6 mmol/ L 3.5-5. 3 normal Not Available [address], [address], 11/13/2022 07:56:29 11/12/19 23 11/13/2022 BASIC METAB OLIC PANEL chloride 107 mmol/ L 98-110 normal Not Available [address], [address], 11/13/2022 07:56:29 11/12/19 23 11/13/2022 BASIC METAB OLIC PANEL carbon dioxide 26 mmol/ L 20-32 normal Not Available [address], [address], 11/13/2022 07:56:29 11/12/19 23 11/13/2022 BASIC METAB OLIC PANEL calcium 9.5 mg/dL 8.6-10 .4 normal Not Available [address], [address], 11/13/2022 07:56:29 11/12/19 23 11/13/2022 LIPID PANEL , STAND MEGAN LDL-choleste rol 94 mg/dL _(giselle c) normal Refer ence range : <100 Jose able range <100 mg/dL for prima ry preve ntion ; <70 mg/dL for patie nts with CHD or diabe tic patie nts with > or = 2 CHD risk facto rs. LDL-C is now calcu lated using the Vesna n-Hop kins calcu latio n, which is a valid ated novel metho d provi ding samuel r accur acy than the Fried sakina equat ion in the estim ation of LDL-C . Vesna keller SS et al. DANA. 2013; 310(1 9): 2061- 2068 (http ://ed ucati on.Qu pavanAlaska [employer]inter [employer]. [employer]/f aq/FA Q164) Not Available [address], [address], 11/13/2022 07:56:28 11/12/19 23 11/13/2022 LIPID PANEL , STAND MEGAN cholesterol, total 196 mg/dL <200 normal Not Available [address], [address], 11/13/2022 07:56:28 11/12/19 23 11/13/2022 LIPID PANEL , STAND MEGAN HDL cholesterol 81 mg/dL > or = 50 normal Not Available [address], [address], 11/13/2022 07:56:28 11/12/19 23 11/13/2022 LIPID PANEL , STAND MEGAN triglyceride s 113 mg/dL <150 normal Not Available [address], [address], 11/13/2022 07:56:28 11/12/19 23 11/13/2022 LIPID PANEL , STAND MEGAN chol/HDLC ratio 2.4 (calc ) <5.0 normal Not Available [employer] [facility] [address], [place], [address], 11/13/2022 07:56:28 11/12/1911/13/2022 LIPID PANEL , STAND MEGAN non HDL cholesterol 115 mg/dL _(giselle c) <130 normal For patie nts with diabe pilar plus 1 major ASCVD risk facto r, treat ing to a non-H DL-C goal of <100 mg/dL (LDL- C of <70 mg/dL ) is consi dered a thera peuti c optio n. Not Available [employer] [facility] [address], [place], [address], 11/13/2022 07:56:28 06/05/2006/10/2023 IGP, APTIM A HPV HPV aptima Negati ve negati ve This nucle ic acid ampli ficat ion test detec ts fourt een high- risk HPV types (16,1 8,31, 33,35 ,39,4 5,51, 52,56 ,58,5 9,66, 68) witho ut diffe renti ation . Not Available Not Available 06/11/2023 10:36:42 06/05/2006/11/2023 IGP, APTIM A HPV diagnosis: Commen t NEGAT MARIA R FOR INTRA EPITH ELIAL LESIO N OR MALIG BRUNA . THIS SPECI MEN WAS RESCR EENED PART OF OUR QUALI TY CONTR OL PROGR AM. Not Available Not Available 06/11/2023 10:36:42 06/05/20 23 06/11/2023 IGP, APTIM A HPV specimen adequacy: Commen t Satis facto ry for evalu ation . Endoc ervic al and/o r squam ous metap lasti c cells (endo cervi giselle compo nent) are prese nt. Not Available Not Available 06/11/2023 10:36:42 06/05/20 23 06/11/2023 IGP, APTIM A HPV clinician provided ICD10: Commen t Z01.4 19 Not Available Not Available 06/11/2023 10:36:42 06/05/20 23 06/11/2023 IGP, APTIM A HPV performed by: Amado keller, Cytot echno logis t (ASCP ) Not Available Not Available 06/11/2023 10:36:42 06/05/20 23 06/11/2023 IGP, APTIM A HPV QC reviewed by: Amado keller, Super visor y Cytot echno logis t (ASCP ) Not Available Not Available 06/11/2023 10:36:42 06/05/20 23 06/11/2023 IGP, APTIM A HPV . . Not Available Not Availa ble 06/11/2023 10:36:42 06/05/20 23 06/11/2023 IGP, APTIM A HPV note: Amado mccord The Pap smear is a scree zuly test desig cheng to aid in the detec tion of sarkis ligna nt and malig nant condi tions of the uteri ne cervi x. It is not a diagn ostic proce dure and shoul d not be used as the sole means of detec ting cervi giselle cance r. Both false -posi tive and false -nega tive repor ts do occur . Not Available Not Available 06/11/2023 10:36:42 06/05/20 23 06/11/2023 IGP, APTIM A HPV test methodology: Amado mccord This liqui d based ThinP rep(R ) pap test was scree cheng with the use of an image guide d systronda m. Not Available Not Available 06/11/2023 10:36:42 02/26/20 23 02/25/2023 MAMMO , scree zuly, digit al, bilat eral No observ ation record ed. [email or web address] [facility] [address], [place], [address], 06/05/2023 15:21:47 03/04/20 23 02/25/2023 DEXA No observ ation record ed. [email or web address] [facility] [address], [place], [address], 06/05/2023 15:24:17 Result Notes None recorded. Problems Name Problem SNOMED Code Status Onset Date Resolution Date Notes Provider Name and Address Organization Details Recorded Time Atrial fibrillation 86077711 Active 2021 Not Available [facility] 14:14:52 Hidradenitis suppurativa 93416141 Active 2022 Chelo Pope MD [address] [facility] [address], [place], [address] , [employer] 15:39:24 Essential hypertension 21297455 Active 2022 Chelo Pope MD [address] [facility] [address], [place], [address] , [employer] 15:40:09 Seborrheic dermatitis 14739517 Active 2022 Chelo Pope MD [address] [facility] [address] [address], [place], [address] , [employer] 15:42:30 Notes:afib. angina Problem Notes None recorded. Procedures Surgical History Date Name Laterality Status Provider Name and Address Organization Details Recorded Time partial repair of rotator cuff completed Not Available [facility] 12/04/2022 14:12:09 Imaging Results None recorded. Procedure Notes None recorded. Medical Equipment None Reported. Allergies No known drug allergies Medications Name Sig Start Date Stop Date Status Note LastModified by Organization Details LastModified Time diltiazem ER (XR/XT) 240 mg capsule,exte nded release 24 hr, controlled TAKE 1 CAPSULE BY MOUTH EVERY MORNING active Not Available Not Available No t Available metoprolol succinate ER 50 mg tablet,exten ded release 24 hr TAKE 3 TABLETS BY MOUTH EVERY MORNING 06/03 completed Not Available Not Available Not Available sotalol 80 mg tablet 1 po bid active Not Available Not Available N ot Available diltiazem CD 360 mg capsule,exte nded release 24 hr Take 1 capsule every day by oral route. 07/21 completed Not Available Not Available Not Available Advil 06/03 completed Not Available Not Available Not Available Eliquis 5 mg tablet TAKE 1 TABLET BY MOUTH EVERY 12 HOURS active Not Available Not Available No t Available Vitals Date Recorded Body mass index (BMI) Body height Oxygen saturation Oxygen saturation in Arterial blood by Pulse oximetry Heart rate Body temperature Body weight Systolic And Diastolic Provider Name and Address Organization Details Last Updated DateTime 3 22.4 kg/m2 170.18 cm 99 % 99 % 63 /min 97.5 [degF] 72969.7 1 g 116/72 mm[Hg] Not Available [facility] 3 14:13:35 Date Recorded Body mass index (BMI) Body height Oxygen saturation Oxygen saturation in Arterial blood by Pulse oximetry Heart rate Body temperature Body weight Systolic And Diastolic Provider Name and Address Organization Details Last Updated DateTime 2 21.9 kg/m2 170.18 cm 98 % 98 % 64 /min 98.1 [degF] 94621.9 3 g 162/90 mm[Hg] Not Available [facility] 3 14:13:34 Date Recorded Systolic And Diastolic Provider Name and Address Organization Details Last Updated DateTime 06/05/2023 200/120 mm[Hg] Chelo Pope MD [address], [address], [place] [employer] 06/05/2023 15:41:40 Date Recorded Body height Body mass index (BMI) Body weight Body temperature Heart rate Oxygen saturation Oxygen saturation in Arterial blood by Pulse oximetry Provider Name and Address Organization Details Last Updated DateTime 3 170.18 cm 22.9 kg/m2 89821.4 9 g 98.1 [degF] 66 /min 97 % 97 % Guanaco Rosario RN [facility] [employer] 3 15:18:55 Date Recorded Body height Systolic And Diastolic Provider Name and Address Organization Details Last Updated DateTime 06/19/2023 170.18 cm 132/80 mm[Hg] Tanisha Carrillo RN [facility] [employer] 06/19/2023 15:52:01 Social History Question Answer Notes LastModified by Organizat ion Details LastModified Time Tobacco Smoking Status Current Every Day Smoker Not Available [facility] 12/04/2022 14:11:40 Do You Have An Advance Directive? No MIGRATION.68092 93341 Information not available 12/04/2022 How Many Years Have You Consumed Alcohol? 42 MIGRATION.33048 48533 Information not available 12/04/2022 Do You Wear A Helmet When Biking? No MIGRATION.09493 97916 Information not available 12/04/2022 What Is Your Level Of Caffeine Consumption? Occasional MIGRATION.96910 73367 Information not available 12/04/2022 What Is Your Code Status? Full Code MIGRATION.79346 76503 Information not available 12/04/2022 In The 14 Days Before Symptom Onset, Have You Had Close Contact With A Laboratory-confi rmed COVID-19 While That Case Was Ill? No MIGRATION.76314 20224 Information not available 12/04/2022 In The 14 Days Before Symptom Onset, Have You Had Close Contact With A Person Who Is Under Investigation For COVID-19 While That Person Was Ill? No MIGRATION.38135 44274 Information not available 12/04/2022 What Type Of Diet Are You Following? REGULAR MIGRATION.59377 98345 Information not available 12/04/2022 Which Illicit Or Recreational Drugs Have You Used? Marijuana MIGRATION.68624 64174 Information not available 12/04/2022 What Is The Highest Grade Or Level Of School You Have Completed Or The Highest Degree You Have Received? [id number] MIGRATION.54212 83928 Information not available 12/04/2022 How Many Days Of Moderate To Strenuous Exercise, Like A Brisk Walk, Did You Do In The Last 7 Days? 0 MIGRATION.52726 80333 Information not available 12/04/2022 Have There Been Any Changes To Your Family Or Social Situation? Yes MIGRATION.28577 71301 Information not available 12/04/2022 What Is The Fluoride Status Of Your Home? Non-fluoridated MIGRATION.73236 97618 Information not available 12/04/2022 Are There Any Guns Present In Your Home? No MIGRATION.01828 59756 Information not available 12/04/2022 How Many Years Have You Used Illicit Or Recreational Drugs? 45 MIGRATION.91930 08582 Information not available 12/04/2022 Do You Use Insect Repellent Routinely? No MIGRATION.13433 42986 Information not available 12/04/2022 Where Do You Live? SingleLevelHouse MIGRATION.58484 06215 Information not available 12/04/2022 Do You Have A Medical Power Of Hvac Field Service Technician? No MIGRATION.61619 98759 Information not available 12/04/2022 What Was The Date Of Your Most Recent Tobacco Screening? 10/28/2022 MIGRATION.83841 71801 Information not available 12/04/2022 Have You Ever Been Counseled For Unhealthy Alcohol Use? No MIGRATION.12268 66261 Information not available 12/04/2022 Do You Have Any Pets? No MIGRATION.03798 30880 Information not available 12/04/2022 What Is Your Relationship Status? MIGRATION.15895 19174 Information not available 12/04/2022 Do You Use Your Seat Belt Or Car Seat Routinely? Yes MIGRATION.10467 87667 Information not available 12/04/2022 Do You Have Smoke And Carbon Monoxide Detectors In Your Home? No MIGRATION.00288 84891 Information not available 12/04/2022 At What Age Did You Start Smoking Tobacco? 16 MIGRATION.52470 79487 Information not available 12/04/2022 Are You Passively Exposed To Smoke? Yes MIGRATION.57353 28324 Information not available 12/04/2022 Are There Any Smokers In Your House? Yes MIGRATION.54114 16680 Information not available 12/04/2022 How Much Tobacco Do You Smoke? 1 PPD MIGRATION.67317 78619 Information not available 12/04/2022 Do You Participate In Social Media? Yes MIGRATION.41501 70858 Information not available 12/04/2022 What Types Of Sporting Activities Do You Participate In? None MIGRATION.94123 52912 Information not available 12/04/2022 Do You Use Sunscreen Routinely? No MIGRATION.53368 26715 Information not available 12/04/2022 Has Tobacco Cessation Counseling Been Provided? No MIGRATION.24289 51309 Information not available 12/04/2022 How Many Years Have You Smoked Tobacco? 45 MIGRATION.25250 81244 Information not available 12/04/2022 Have You Recently Traveled Abroad? No MIGRATION.98426 57885 Information not available 12/04/2022 Have You Used IV Drugs? No MIGRATION.73075 81481 Information not available 12/04/2022 Are You Currently In School? No MIGRATION.91179 87955 Information not available 12/04/2022 Sex: Female Functional Status Question Answer Note LastModified by Organizat ion Details LastModified Time Do you use any illicit or recreational drugs? Yes MIGRATION.7596856 026 Information not available 12/04/2022 Do you or have you ever used any other forms of tobacco or nicotine? No MIGRATION.0324813 026 Information not available 12/04/2022 What is your level of alcohol consumption? 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 None MIGRATION.8267645 026 Information not available 12/04/2022 Mental Status Question Answer Note LastModified by Organizat ion Details LastModified Time Do you feel stressed (tense, restless, nervous, or anxious, or unable to sleep at night)? [id number] MIGRATION.[id number] 6 Information not available 12/04/2022 Family History Nothing Reported Notes:heart disease mgrf, da d cancer-lung, mom dementia Medical History Condition Response RHEUMATIC FEVER N KIDNEY STONES N MRSA N ALLERGIES/HAYFEVER N POLIO N INFECTIOUS DISEASE N PROSTATE N LUNG DISEASE/DISORDER N HEART ARRHYTHMIA Y INSOMNIA N HISTORY OF DRUG ABUSE N RADIATION / CHEMOTHERAPY N HIGH CHOLESTEROL / HYPERLIPIDEMIA N HYPERTHYROIDISM N MUMPS N BACK / NECK PROBLEMS N HAVE YOU BEEN HOSPITALIZED OR SEEN IN [facility] ER IN THE PAST YEAR ? Y ATHEROSCLEROSIS N MEASLES N HYPOTENSION N MYOCARDIAL INFARCTION N PARAPELGIA N OBESITY N GERD/NAUSEA N OSTEOPOROSIS N MENIERE'S DISEASE N ARTHRITIS Y ADDICTION CONCERNS Y APPENDICITIS N HEARTBURN / REFLUX Y MUSCLE,JOINT OR BONE PROBLEMS Y ADD/ADHD N AUTISM SPECTRUM DISORDER (ASD) N HEPATITIS / LIVER DISEASE N ASTHMA N PULMONARY DISEASE N GOUT N ALZHEIMER'S DISEASE N PAIN Y HERPES N HEADACHES/MIGRAINES N GI PROBLEMS N PACEMAKER N Low Testosterone N NEUROPATHY N KIDNEY DISEASE N INFERTILITY N HEART DISEASE/HEART PROBLEMS Y AIDS/HIV N MULTIPLE SCLEROSIS N MENTAL DISORDER/ILLNESS N LIVER DISEASE N MALE HYPOGONADISM N HYPERTENSION N ANXIETY DISORDER N PNEUMONIA N Gall Stones N ATRIAL FIBRILLATION Y PULMONARY EMBOLISM N AUTOIMMUNE DISEASE N GLAUCOMA N Gynecological History Statement/Question Response Abnormal Pap N Date of LMP 06/03/2107 STIs/STDs N Date of Last Pap Age at Menarche 18 Breast Problems no How many live births 1 Date of Last Mammogram Date of Last Colonoscopy Most Recent Bone Density Sexually Active? N Weight gain N Menses Monthly Y Discharge no Obstetrics History GPAL:G 1 P 1 0 1 1 Type Value Full Term 1 Induced 1 Living 1 Total 1 Past Encounters Encounter ID Performer Location Encounter Start Date Encounter Closed Date Diagnosis/Indication Diagnosis SNOMED-CT Code Diagnosis ICD10 Code Diagnosis Note [id number] Chelo Pope MD [facility] Primary Care [facility] [address] [facility] [address] [place] [address] 06/03/2022 00:00:00 06/05/2022 14:35:59 [id number] Chelo Pope MD [facility] Primary Care [facility] [address] [facility] [address] [place] [address] 10/28/2022 00:00:00 10/28/2022 16:00:46 [id number] Chelo Ppoe MD [facility] Primary Care [facility] [address] [facility] [address] [place] [address] 06/05/2023 15:12:04 06/05/2023 15:50:39 Gynecologic examination 49662184 Z01.419 pap done Atrial fibrillation 4943 6004 I48.91 sees cardiology Hidradenit is suppurativa 60634639 L73.2 call if any active lesions, otherwise continue supportive care Essential hypertension 61144735 I10 increase diltiazem to 360 mg dailyrepea t bp check in 2 weeks Seborrheic dermatitis 50 089276 L21.9 dandruff shampoo TID to affected areanystat in cream bid prncall/re turn if no improvemen t in 2 weeks or sooner if neededrevi ewed s/s that warrant urgent/penny rgent eval in meantime Screening for malignant neoplasm of colon 851498955 Z12.11 [id number] Chelo Pope MD [facility] [address] [facility] [address] [place] [address] 06/19/2023 15:25:10 06/19/2023 15:52:33 Health Concerns Section Related Observation LastModified by Organization Detai ls LastModified Time None Recorded Concern Status LastModified by Organization Details LastModified Time None Recorded Advance Directives Directive N: Payers Insurance Date Sequence Insurance Name Policy Number Policy Hernandez Covered Member ID Hernandez Member ID Guarantor Name 06/19/2023 1 [facility] [id number] Loreto Fabian [id number] Loreto Fabian Notes Date Note Type Note Provider Name and Address Organization Details Recorded Time 06/05/2023 text/html Here for f/u, ne eds pap. No h/o abnormal pap. Has recurrent boils in vaginal area, just treats them as the arise. Irritated area behind left ear, using otc hydrocortisone cream. Chelo Pope MD [address] [facility] [address], [place], [address], [facility] [employer] [facility] 06/05/2023 15:44:40 OBGyn Episode No OBEpisode recorded.
--- OUTSIDE RECORDS SUMMARY | 2025-04-22 14:41 | XMS_ITS | Encounter Summary ---
Author Organization [facility] Facility Care Team Providers Care Sr Account Executive Name Role Phone Shefali Shell Primary Care Provider [phone] Chelo Pope MD Primary Care Provider + Bobbi Ahuja NP Primary Care Provider [phone] Encounter Details Date Type Department Care Team (Latest Contact Info) Description 03/05/2018 Orders Only [facility]INCONV Provider, MD Summer [address] [place] [address] Social History Tobacco Use Types Packs/Day Years Used Date Smoking Tobacco: Never Assessed Comments Unknown Sex and Gender Information Value Date Recorded Sex Assigned at Not on file 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 us Historical Provider Final Res ult documented in this encounter Visit Diagnoses Not on filedocumented in this encounter Care Teams Sr Account Executive Relationship Specialty Start Date End Date Shefali Shell PA [address] [facility] [facility] [address] [place] [address] PCP - General Internal Medicine 03/30/22 05/06/22 Chelo Pope MD [address] [place] [address] [address] [place] [address] PCP - General Family Medicine 05/07/22 11/10/24 Bobbi Ahuja NP [address] [place] [address] PCP - General Nurse Practitioner 11/11/24 documented as of this encounter
--- OUTSIDE RECORDS SUMMARY | 2025-04-22 14:41 | XMS_ITS | Clinical Summary ---
Author Organization [address] Address [address] [place] [address] Care Team Providers Care Heat Treat Supervisor Name Role Phone Bobbi Ahuja NP Primary Care Provider [phone] Allergies No known active allergies Medications metoprolol [...] Date Diagnosed Date Paroxysmal atrial fibrillation 02/13/2023 Encounters Date Type Department Care Team Description 01/28/2025 Telephone [facility] Cardiology [address] [place] [address] Gasper Baptiste MD 01/21/2025 Telephone [facility] Cardiology [address] [place] [address] Gasper Baptiste MD from Last 3 Months Medical History Medical History Date Comments Atrial fibrillation (HCC) Family History Medical History Relation Name Comments Cancer Father Dementia Mother Relation Name Status Comments Father Mother Social History Tobacco Use Types Packs/Day Years [...] on file Legal Sex Female 2:44 AM PUBLICITY EXPERT Gender Identity Not on file Sexual Orientation Not on file Obstetrics History Last Filed Vital Signs Vital Sign Reading Time Taken Comments Blood Pressure 134/84 12/02/2024 3:11 PM PUBLICITY EXPERT Pulse 106 12/02/2024 3:11 PM PUBLICITY EXPERT Temperature - - Respiratory Rate - - Oxygen Saturation 98% 12/02/2024 3:11 PM PUBLICITY EXPERT Inhaled Oxygen Concentration - - Weight 68.9 kg (151 lb 14.4 oz) 12/02/2024 3:11 PM PUBLICITY EXPERT Height 170.2 cm (5' 7) 12/02/2024 3:11 PM PUBLICITY EXPERT Body Mass Index 23.79 12/02/2024 3:11 PM PUBLICITY EXPERT Plan of Treatment Health Maintenance Due Date Last Done Comments Breast Cancer Screening-Mammogram 1961 Cervical Cancer Screening 1961 Colon Cancer Screening-Colonoscopy 1961 Depression Screening 1961 Hepatitis C Screening 1961 Hepatitis B Screening 12/21/1979 Regular Well Visit/Exam 18-64 12/21/1979 Zoster Vaccine (1 of 2) 12/21/2011 Covid-19 Vaccine (2 - 2023-2 5 season) 2024 12/12/2020 Influenza Vaccine (Season Ended) 2025 DTaP/Tdap/Td Vaccine (2 - Td or Tdap) 02/25/2028 02/24/2018 Pneumococcal vaccine <65 Aged Out No longer eligible based on patient's age to complete this topic Insurance S [employer] S [employer] ID [employer] SIG [id number] [place] [address] Care Teams Heat Treat Supervisor Relationship Specialty Start Date End Date Bobbi Ahuja NP [address] [place] [address] PCP - General Nurse Practitioner 11/11/24
== END 2025-04-22 14:36 | disposition home or self-care (01) ==
PROVIDERS: PCP Nurse Practitioner Family; Visit Provider Nurse Practitioner Family
DX: Z12.2 Encounter for screening for malignant neoplasm of respiratory organs (principal); Z87.891 Personal history of nicotine dependence
CPT/HCPCS: 71271

== ENCOUNTER 2025-09-18 14:25 | Inpatient (IN) | payer OTHER, SELFPAY ==
[2025-09-18] VITALS (15 sets, daily range): BP systolic 117–147; BP diastolic 72–100; PULSE 92–136; RESP 16–21; TEMP 36.1–36.6; O2SAT 94–98; BMI 21.5
--- NOTE | 2025-09-18 14:59 | ED_ITS ---
HPI - General Adult General Chief complaint: Skin/Abscess/Foreign Body <ILEANA Marina - Last Filed: 09/18/25 17:53> Stated complaint: abscess to left leg <ILEANA Marina - Last Filed: 09/18/25 17:53> Time Seen by Provider: 09/18/25 14:35 <ILEANA Marina - Last Filed: 09/18/25 17:53> History of Present Illness HPI narrative: 64-year-old female presenting with concerns for left-sided labia abscess. Patient states her symptoms began last Friday and have since worsened including pain, swelling, and pruritus. She reports a history of a prior episode requiring OBGYN for incision and drainage about 10 years ago. Denies fevers/chills, urinary concerns or other vaginal complaints. She is on Eliquis for AFib. <ILEANA Marina - Last Filed: 09/18/25 17:53> Related Data Home medications: Home Medications ?Medication ?Instructions ?Recorded ?Confirmed ?Last Taken ?Type calcium 600 mg (as 1 cap PO BID 01/22/2409/18/25 07:30 History carbonate)-vitamin D3 12.5 mcg 1 cap (500 unit) capsule (Calcium with Vit D3) metoprolol succinate 100 mg 100 mg PO DAILY 01/24/25 1 11/19/24 09/18/25 07:30 History tablet,extended release 24 hr 100 mg cyanocobalamin (vitamin B-12) 500 500 mcg PO DAILY 09/18/25 09/18/25 07:30 History mcg tablet 500 mcg <ILEANA Marina - Last Filed: 09/18/25 17:53> Allergies/adverse reactions: Allergies Allergy/AdvReac Type Severity Reaction Status Date / Time No Known Allergies Allergy Unknown Verified 04/22/24 09:52 <ILEANA Marina - Last Filed: 09/18/25 17:53> Review of Systems 2 Review of Systems: All systems reviewed & are unremarkable except as noted in HPI and below <ILEANA Marina - Last Filed: 09/18/25 17:53> [facility] Past Medical History Medical History: Medical History Afib Hypertension Atrial fibrillation with rapid ventricular response Daily consumption of alcohol Nicotine dependence <ILEANA Marina - Last Filed: 09/18/25 17:53> Surgical History Surgical History: Surgical History History of open reduction and internal fixation (ORIF) procedure Repair right 2nd toe fracture. History of repair of right rotator cuff History of colonoscopy with polypectomy <ILEANA Marina - Last Filed: 09/18/25 17:53> Family History Family History: Family History Mother COPD (chronic obstructive pulmonary disease) Father Metastatic lung cancer (metastasis from lung to other site) Alcoholism <ILEANA Marina - Last Filed: 09/18/25 17:53> Social History Social History: Social History Social History: Surrogate decision maker: Monico Fabian, spouse. Code status: Full code. Smoking packs per day: 1 Smoking cigarettes per day: 20.0 Years smoked: 40 Smoking pack-years: 40.00 Smoking status: Current every day smoker Tobacco type: cigarettes Alcohol intake: current Drinks per week: 12 Alcohol use details: Beer and wine Substance use: never Lack of Transportation: No Lack of Food: Never True Current Housing: I Have Housing Concerned About Future Housing: No Difficulty Paying Gas/Electric Bills: No Difficulty Paying for Meds: No Currently Unemployed: No Education: High School Diploma/GED Difficulty w/ Childcare or Family Care: No Living arrangements: with family Additional living arrangements comments: The patient lives with her in [place]. They have 1 adult son and 4 grandsons. 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 Spiritual care concerns: No <ILEANA Marina - Last Filed: 09/18/25 17:53> Exam 2 Narrative: GENERAL: Uncomfortable. HEAD: Normocephalic, atraumatic. EYES: PERRLA and EOMI. ENT: Nares clear, no rhinorrhea or epistaxis. Mucous membranes moist. Oropharynx without tonsillar hypertrophy exudate or other lesions. Bilateral TMs pearly malin non-bulging NECK: Supple. No adenopathy or masses. No carotid bruits or JVD CHEST: Clear to auscultation. No respiratory distress. No wheezes rales or rhonchi HEART: Regular rate and rhythm. No murmur heard. Normal peripheral pulses. ABDOMEN: Soft, nontender, nondistended, normal active bowel sounds. EXTREMITIES: Normal range of motion. No edema. SKIN: Warm, dry, no rash. NEURO: No focal deficits. Alert and oriented x3. PSYCH: Normal mood and affect PELVIC: Skin infection with concern for abscess/cellulitis of the entire left labia majora. There is significant induration and erythema with small areas of fluctuance. No purulence noted. <ILEANA Marina - Last Filed: 09/18/25 17:53> Course POWER DISTRIBUTION ENGINEER/PA Physician Supervision This visit was performed by both a physician and an APC; I performed all aspects of the medical decision making component of this evaluation as documented. Patient with AFib with RVR here, on exam has a very large area of induration and tenderness across the left labia majora to upper thigh. OB Dr Ralph came to bedside to evaluate patient, agrees with admission for IV antibiotics, no obvious abscess for drainage at this time. Patient agreeable to plan. Patient is on Eliquis and diltiazem, since her heart rate was still quite high even after fluids and pain medication, will give additional dose of diltiazem here. <Aydee Betancur MD - Last Filed: 09/18/25 17:48> Vital Signs Vital signs: Vital Signs Temperature 97.5 F L 09/18/25 14:30 Pulse Rate 120 H 09/18/25 14:30 Respiratory Rate 16 09/18/25 14:30 Blood Pressure 147/100 H 09/18/25 14:30 Pulse Oximetry 98 09/18/25 14:30 Oxygen Delivery Room Air 09/18/25 14:30 Temperature 97.5 F L 09/18/25 14:30 Pulse Rate 107 H 09/18/25 16:32 Respiratory Rate 20 09/18/25 16:32 Blood Pressure 129/79 09/18/25 16:32 Pulse Oximetry 94 09/18/25 16:32 Oxygen Delivery Room Air 09/18/25 14:30 <ILEANA Marina - Last Filed: 09/18/25 17:53> Vital Signs Temperature 97.5 F L 09/18/25 14:30 Pulse Rate 120 H 09/18/25 14:30 Respiratory Rate 16 09/18/25 14:30 Blood Pressure 147/100 H 09/18/25 14:30 Pulse Oximetry 98 09/18/25 14:30 Oxygen Delivery Room Air 09/18/25 14:30 Temperature 97.5 F L 09/18/25 14:30 Pulse Rate 107 H 09/18/25 16:32 Respiratory Rate 20 09/18/25 16:32 Blood Pressure 129/79 09/18/25 16:32 Pulse Oximetry 94 09/18/25 16:32 Oxygen Delivery Room Air 09/18/25 14:30 <Aydee Betancur MD - Last Filed: 09/18/25 17:48> MDM MDM Narrative Medical decision making narrative: 64-year-old female presenting with concerns for left-sided labia abscess. Patient states her symptoms began last Friday and have since worsened. She reports a history of a prior episode requiring OBGYN for incision and drainage about 10 years ago. Denies fevers/chills, urinary concerns or other vaginal complaints. She is on Eliquis for AFib. Upon my initial assessment patient appears uncomfortable reporting significant pain. Physical exam demonstrates concerns for abscess/cellulitis of the entire left labia majora. There is significant induration and erythema with small areas of fluctuance. No purulence noted. Administered morphine for patient's pain. Patient reports improvement. Discussed with Dr. Ralph with OBGYN patient presentation and workup. She recommends starting IV cefazolin to start. Dr. Ralph came to bedside to evaluate the patient. Agrees with admission for IV antibiotics and recommends starting clindamycin and bactrim. Patient has a history of afib RVR. ER provider Dr. Betancur spoke with Noah Post POWER DISTRIBUTION ENGINEER with hospitalist for monitoring this condition while admitted. Administered an IV bolus and PO diltiazem for better rate control. Heart rate improved. Patient is stable pending transfer upstairs. <ILEANA Marina - Last Filed: 09/18/25 17:53> Differential Diagnosis Differential Diagnosis: Differential diagnostic considerations for female urogenital issues include urinary tract infection, bacterial vaginosis, cervicitis, ovarian cyst, vaginitis, STI exposure, ovarian torsion, ectopic , cyst of Bartholin?s gland, cystitis, dysmenorrhea. <ILEANA Marina - Last Filed: 09/18/25 17:53> Medical Records I have reviewed the following patient records and this information was taken into consideration when formulating the assessment and plan.: previous labs, previous ER visits, previous hospitalizations and previous clinic visits <ILEANA Marina - Last Filed: 09/18/25 17:53> Lab Data MDM Lab Attestation statement: I personally reviewed the patient's lab results. <ILEANA Marina - Last Filed: 09/18/25 17:53> Result diagrams: 09/18/25 15:11 09/18/25 15:11 <ILEANA Marina - Last Filed: 09/18/25 17:53> Labs: Lab Results 09/18/25 Range/Units 15:11 WBC 13.4 H (4.5-10.0) K/mm3 RBC 5.34 (4.2-5.4) M/mm3 Hgb 17.3 H (12.0-15.0) g/dL Hct 50.6 H (37.0-47.0) % MCV 94.8 (80-100) fl MCH 32.4 (26-34) pg MCHC 34.2 (32-36) g/dl RDW 13.5 (11.5-14.5) % Plt Count 188 (150-375) k/mm3 MPV 10.9 H (7.4-10.4) fl Immature Gran % (Auto) 0.3 (0-0.5) % Neut % (Auto) 79.5 H (45.5-73.1) % Lymph % (Auto) 11.0 L (18.3-44.2) % [place] % (Auto) 8.6 H (2.6-8.5) % Eos % (Auto) 0.2 (0-4.4) % Baso % (Auto) 0.4 (0.2-1.2) % Lymph # (Auto) 1.48 (0.9-3.2) K/mm3 [place] # (Auto) 1.2 H (0.1-0.6) K/mm3 Eos # (Auto) 0.0 (0-0.3) K/mm3 Baso # (Auto) 0.1 (0.0-0.1) K/mm3 Abs Immat Gran (auto) 0.04 H (0.00-0.031) K/mm3 Absolute Neuts (auto) 10.7 H (1.3-6.7) K/mm3 Absolute Nucleated RBC 0.000 (0.0-0.012) K/mm3 Nucleated RBC % 0.0 (0.0-0.2) % Sodium 137 (137-145) mmol/L Potassium 4.1 (3.4-5.0) mmol/L Chloride 106 (98-107) mmol/L Carbon Dioxide 22 (22-30) mmol/L Anion Gap 9 (4-12) mmol/L BUN 17 (7-17) mg/dL Creatinine 0.90 (0.7-1.0) mg/dL Estim Creat Clear Calc 55 ml/min Estimated GFR > 60 (59 - ) Glucose 112 H (65-110) mg/dL Calcium 9.6 (8.4-10.2) mg/dL Total Bilirubin 3.0 H (0.2-1.3) mg/dL AST 34 (14-36) U/L ALT 23 (6-35) U/L Alkaline Phosphatase 161 H (38-126) U/L C-Reactive Protein 2.6 H (<1.0) mg/dL Total Protein 7.8 (6.3-8.2) g/dL Albumin 4.4 (3.5-5.1) g/dL <ILEANA Marina - Last Filed: 09/18/25 17:53> Lab Results 09/18/25 Range/Units 15:11 WBC 13.4 H (4.5-10.0) K/mm3 RBC 5.34 (4.2-5.4) M/mm3 Hgb 17.3 H (12.0-15.0) g/dL Hct 50.6 H (37.0-47.0) % MCV 94.8 (80-100) fl MCH 32.4 (26-34) pg MCHC 34.2 (32-36) g/dl RDW 13.5 (11.5-14.5) % Plt Count 188 (150-375) k/mm3 MPV 10.9 H (7.4-10.4) fl Immature Gran % (Auto) 0.3 (0-0.5) % Neut % (Auto) 79.5 H (45.5-73.1) % Lymph % (Auto) 11.0 L (18.3-44.2) % [place] % (Auto) 8.6 H (2.6-8.5) % Eos % (Auto) 0.2 (0-4.4) % Baso % (Auto) 0.4 (0.2-1.2) % Lymph # (Auto) 1.48 (0.9-3.2) K/mm3 [place] # (Auto) 1.2 H (0.1-0.6) K/mm3 Eos # (Auto) 0.0 (0-0.3) K/mm3 Baso # (Auto) 0.1 (0.0-0.1) K/mm3 Abs Immat Gran (auto) 0.04 H (0.00-0.031) K/mm3 Absolute Neuts (auto) 10.7 H (1.3-6.7) K/mm3 Absolute Nucleated RBC 0.000 (0.0-0.012) K/mm3 Nucleated RBC % 0.0 (0.0-0.2) % Sodium 137 (137-145) mmol/L Potassium 4.1 (3.4-5.0) mmol/L Chloride 106 (98-107) mmol/L Carbon Dioxide 22 (22-30) mmol/L Anion Gap 9 (4-12) mmol/L BUN 17 (7-17) mg/dL Creatinine 0.90 (0.7-1.0) mg/dL Estim Creat Clear Calc 55 ml/min Estimated GFR > 60 (59 - ) Glucose 112 H (65-110) mg/dL Calcium 9.6 (8.4-10.2) mg/dL Total Bilirubin 3.0 H (0.2-1.3) mg/dL AST 34 (14-36) U/L ALT 23 (6-35) U/L Alkaline Phosphatase 161 H (38-126) U/L C-Reactive Protein 2.6 H (<1.0) mg/dL Total Protein 7.8 (6.3-8.2) g/dL Albumin 4.4 (3.5-5.1) g/dL <Aydee Betancur MD - Last Filed: 09/18/25 17:48> Critical Care Time Critical Care Time Critical Care Time: Yes <Aydee Betancur MD - Last Filed: 09/18/25 17:48> Indication: afib with rvr; SSTI <Aydee Betancur MD - Last Filed: 09/18/25 17:48> Initial evaluation, discuss w/ involved parties, attempting to gather old records: 10 minutes <Aydee Betancur MD - Last Filed: 09/18/25 17:48> Documenting medical record: 5 minutes <Aydee Betancur MD - Last Filed: 09/18/25 17:48> Review of results (EKG's, labs, imaging): 5 minutes <Aydee Betancur MD - Last Filed: 09/18/25 17:48> Serial repeat bedside evaluation: 10 minutes <Aydee Betancur MD - Last Filed: 09/18/25 17:48> Discussing case with multiple memebers of the care team and consultants: 5 minutes <Aydee Betancur MD - Last Filed: 09/18/25 17:48> Total Critical Care Time: 35 <ILEANA Marina - Last Filed: 09/18/25 17:53> 35 <Aydee Betancur MD - Last Filed: 09/18/25 17:48> Discharge Plan Discharge Clinical Impression: Atrial fibrillation with RVR, Cellulitis of labia majora <ILEANA Marina - Last Filed: 09/18/25 17:53> Patient Disposition: Still a Patient <ILEANA Marina - Last Filed: 09/18/25 17:53> Condition: Stable <ILEANA Marina - Last Filed: 09/18/25 17:53>
[2025-09-18] MEDS: MORPHINE SULFATE (*CRX) 4 MG/ML INJ IV PUSH (15:03)
--- NOTE | 2025-09-18 15:12 | PC.NURSE ---
pt placed on a monitor d/t recieving morphine. pt is in afib. pt lives in afib all of the time so this is normal for her.
[2025-09-18 15:16] LABS: Hematocrit 50.6 % (37.0-47.0); Hemoglobin 17.3 g/dL (12.0-15.0); Immature Granulocyte Percent A 0.3 % (0-0.5); Lymphocytes Absolute Auto 1.48 K/mm3 (0.9-3.2); Mean Corpuscular HGB Conc 34.2 g/dl (32-36); Mean Corpuscular Hemoglobin 32.4 pg (26-34); Mean Corpuscular Volume 94.8 fl (80-100); Nucleated Red Blood Cells Absolute Auto 0.000 K/mm3 (0.0-0.012); Nucleated Red Blood Cells Perc 0.0 % (0.0-0.2); Platelet Count Result 188 k/mm3 (150-375); Red Blood Count 5.34 M/mm3 (4.2-5.4); White Blood Count 13.4 K/mm3 (4.5-10.0)
[2025-09-18] MEDS: ceFAZolin 1 GM in SODIUM CHLORIDE 0.9% IV 50 ML 100 ML IVPB (15:19)
[2025-09-18 15:34] LABS: Alanine Aminotransferase 23 U/L (6-35); Albumin Level 4.4 g/dL (3.5-5.1); Alkaline Phosphatase 161 U/L (38-126); Anion Gap 9 mmol/L (4-12); Aspartate Amino Transferase 34 U/L (14-36); Bilirubin,Total 3.0 mg/dL (0.2-1.3); Blood Urea Nitrogen 17 mg/dL (7-17); CRP 2.6 mg/dL (<1.0); Calcium 9.6 mg/dL (8.4-10.2); Carbon Dioxide 22 mmol/L (22-30); Chloride 106 mmol/L (98-107); Estimated CRCL calculation 55 ml/min; Estimated Glomerular Filt Rate > 60; Glucose 112 mg/dL (65-110); Potassium 4.1 mmol/L (3.4-5.0); Sodium 137 mmol/L (137-145); Total Protein 7.8 g/dL (6.3-8.2)
--- NOTE | 2025-09-18 15:34 | ECG_ITS ---
Test Date: 2025-09-18 15:44:26 Measurements Intervals [place] Rate: 121 P: 0 MA: 0 QRS: 52 QRSD: 90 T: 28 QT: 324 QTc: 460 Interpretive Statements ATRIAL FIBRILLATION WITH RAPID VENTRICULAR RESPONSE INCOMPLETE RIGHT BUNDLE BRANCH BLOCK NONSPECIFIC ST & T-WAVE ABNORMALITY- INF/LAT LEADS BASELINE ARTIFACT- I, II, III, AVR, AVL ,AVF, V1-V3, V6 ABNORMAL ECG No previous ECG available for comparison Electronically Signed On 09-18-2025 20:04:27 AZURE ARCHITECT by Anderson Stafford D.O.
--- NOTE | 2025-09-18 15:57 | PM.IMHP2 ---
H&P: HPI History of Present Illness Date/Time: 09/18/25 15:57 Chief Complaint: Painful labia Narrative: 64 y/o female presented to ED with c/o vulvar pain which started Thurs and has been increasing since then. Her history is consistent with hidradenitits. She has tried sitz bath. She also applied a scalpel to area in an attempt to try to tayler. In ED area very swollen and painful. Review of Systems Review of Systems: All systems reviewed & are unremarkable except as noted in HPI and below Cardiovascular: Cardiovascular: Reports no additional cardiovascular complaints, Denies chest pain and Denies dyspnea Respiratory: Respiratory: Reports no additional respiratory complaints and Denies dyspnea Gastrointestinal: Gastrointestinal: Reports abdominal pain, Denies change in bowel habits, Denies diarrhea, Denies nausea and Denies vomiting Genitourinary: Genitourinary: Reports pelvic pain Musculoskeletal: Musculoskeletal: Reports back pain Integumentary/Breasts: Skin/Breast: Reports system reviewed and no additional complaints, except as docu Neurologic: Reports system reviewed and no additional complaints, except as documented PMFSH Past Medical History Medical History Afib Hypertension Atrial fibrillation with rapid ventricular response Daily consumption of alcohol Nicotine dependence Surgical History Surgical History History of open reduction and internal fixation (ORIF) procedure Repair right 2nd toe fracture. History of repair of right rotator cuff History of colonoscopy with polypectomy Family History Family History Mother COPD (chronic obstructive pulmonary disease) Father Metastatic lung cancer (metastasis from lung to other site) Alcoholism Social History Social History Social History: Surrogate decision maker: Monico Fabian, spouse. Code status: Full code. Smoking packs per day: 1 Smoking cigarettes per day: 20.0 Years smoked: 40 Smoking pack-years: 40.00 Smoking status: Current every day smoker Tobacco type: cigarettes Alcohol intake: current Drinks per week: 12 Alcohol use details: Beer and wine Substance use: never Lack of Transportation: No Lack of Food: Never True Current Housing: I Have Housing Concerned About Future Housing: No Difficulty Paying Gas/Electric Bills: No Difficulty Paying for Meds: No Currently Unemployed: No Education: High School Diploma/GED Difficulty w/ Childcare or Family Care: No Living arrangements: with family Additional living arrangements comments: The patient lives with her in [place]. They have 1 adult son and 4 grandsons. 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 Meds Home Medications and Allergies Home Medications ?Medication ?Instructions ?Recorded ?Confirmed ?Type apixaban 5 mg tablet (Eliquis) 5 mg PO Q12HR #60 tabs 04/03/22 01/24/25 Rx diltiazem HCl 240 mg 240 mg PO QAM #30 caps 04/03/22 01/24/25 Rx capsule,extended release 24 hr, controlled calcium 600 mg (as 1 cap PO BID 01/22/24 01/24/25 History carbonate)-vitamin D3 12.5 mcg (500 unit) capsule (Calcium with Vit D3) metoprolol succinate 100 mg mg PO 01/24/25 01/24/25 History tablet,extended release 24 hr Allergies Allergy/AdvReac Type Severity Reaction Status Date / Time No Known Allergies Allergy Unknown Verified 04/22/24 09:52 Vital Signs Vital Signs - 24 hr 09/18/25 14:30 09/18/25 15:13 Temperature 97.5 F L Pulse Rate 120 H 120 H Respiratory Rate 16 16 Blood Pressure 147/100 H 131/86 Pulse Oximetry 98 97 Oxygen Delivery Room Air Exam Const: Orientation/consciousness: oriented to person and oriented to place HENMT: Head: normal to inspection Eyes: General: appearance normal, both eyes and all related structures Resp: Effort & Inspection: normal respiratory effort Cardio: Rate: regular rate Rhythm: regular rhythm GI: Inspection: normal to inspection GI Palp: No Rebound tenderness present : Other: diffuse erythema and swelling of right labia, tender, no abscess palpated, multiple scarred sebaceous cyst, healing cyst lower left labia, no drainage, no puncture site visualized. Neuro: General: oriented to person and oriented to place Cognition (Neuro): normal cognition Extrem: General: normal to inspection Psych: Appearance: grossly normal Results Labs Labs: Short CBC 09/18/25 Range/Units 15:11 WBC 13.4 H (4.5-10.0) K/mm3 Hgb 17.3 H (12.0-15.0) g/dL Hct 50.6 H (37.0-47.0) % Plt Count 188 (150-375) k/mm3 BMP 09/18/25 15:11 Sodium 137 Potassium 4.1 Chloride 106 Carbon Dioxide 22 BUN 17 Creatinine 0.90 Glucose 112 H Calcium 9.6 Liver Function 09/18/25 Range/Units 15:11 Total Bilirubin 3.0 H (0.2-1.3) mg/dL AST 34 (14-36) U/L ALT 23 (6-35) U/L Alkaline Phosphatase 161 H (38-126) U/L Albumin 4.4 (3.5-5.1) g/dL Assessment and Plan Assessment and plan (1) Vulvar cellulitis: Code(s): N76.2 - Acute vulvitis Status: Acute Assessment and Plan: Moderate. Admit. IV antibiotics, MRSA cover. Bactrim and IV Clindamycin. No abscess palpated. Will provide analgesia. Will obtain wound nurse consult.
[2025-09-18] MEDS: SULFAMETHOXAZOLE/TRIMETHOPRIM 800/160 MG DS TABLET 1 TAB PO (16:05)
[2025-09-18] MEDS: SODIUM CHLORIDE 0.9% IV 500 ML 999 ML IV CONT (16:05)
[2025-09-18] MEDS: TETANUS,DIPHTHERIA,AC PERTUSSIS ADULT (0.5 ML) BOOSTRIX IM (16:22)
[2025-09-18] MEDS: dilTIAZem HCL 12 HR 60 MG CAP.12HR PO (16:23)
[2025-09-18] MEDS: CLINDAMYCIN 900 MG/D5W 50 ML 900 MG/50 ML PIGGYBACK 50 MG IVPB ×2 (16:23→23:05)
--- NOTE | 2025-09-18 16:52 | P.CONIM_ITS ---
Assessment and Plan Assessment and plan (1) Atrial fibrillation with RVR: Code(s): I48.91 - Unspecified atrial fibrillation Status: Acute Assessment and Plan: Likely caused by infectious process, given IV diltiazem in ED Telemetry Continue oral diltiazem and metoprolol (2) Cellulitis of labia majora: Code(s): N76.2 - Acute vulvitis Status: Acute Assessment and Plan: OBGYN as primary Continue Bactrim and IV clindamycin Pain control with bowel protocol Wound care consult (3) Nicotine dependence: Code(s): F17.200 - Nicotine dependence, unspecified, uncomplicated Status: Acute Assessment and Plan: Nicotine patch if needed (4) Polycythemia: Code(s): D75.1 - Secondary polycythemia Status: Acute Assessment and Plan: At baseline from smoking likely Prior Studies I have reviewed the following patient records and this information was taken into consideration when formulating the assessment and plan.: previous labs and previous ER visits Time Spent with Patient Time with patient: less than 45 minutes HPI Date of Consult Consult date: 09/18/25 Primary Care Provider: Bobbi Ahuja APRN Consult Narrative Reason for consult: Medical management Narrative: Loreto Fabian is a 64 year old female past medical history AFib, hypertension, left-sided labial abscess. Patient complains of symptoms for about a week reporting pain, swelling and itching. Patient states that she has had a prior OBGYN procedure for incision and drainage about 10 years ago. Patient does state that she did try the Alvin the site with a scalpel. Denies fevers chills nausea or vomiting. Patient states that the current pain medication, 04/14, patient is not relieving her pain will adjust medications. Patient states that she did not feel her heart racing when she was in the emergency room. In has no other complaints. Denies nausea vomiting fever chills. Blood work in the ED showed leukocytosis 13.4, hemoglobin of 17.3 which is around baseline total bili of 3.0, alkaline phos of 161, CRP 2.6, OB admitting as primary. In the ED the patient had AFib with RVR and was given 10 mg of to diltiazem. Review of Systems 2 Review of Systems: 12 systems were reviewed and are negativ e except for as per HPI. [facility] Past Medical History Medical History Afib Hypertension Atrial fibrillation with rapid ventricular response Daily consumption of alcohol Nicotine dependence Surgical History Surgical History History of open reduction and internal fixation (ORIF) procedure Repair right 2nd toe fracture. History of repair of right rotator cuff History of colonoscopy with polypectomy Family History Family History Mother COPD (chronic obstructive pulmonary disease) Father Metastatic lung cancer (metastasis from lung to other site) Alcoholism Social History Social History Social History: Surrogate decision maker: Monico Webbdesirae, spouse. Code status: Full code. Smoking packs per day: 1 Smoking cigarettes per day: 20.0 Years smoked: 48 Smoking pack-years: 48.00 Smoking status: Current every day smoker Tobacco type: cigarettes Second hand tobacco smoke exposure: No Alcohol intake: current Drinks per week: 10 Alcohol use details: Beer and wine Substance use: current Substance use type: does not use Lack of Transportation: No Lack of Food: Never True Current Housing: I Have Housing Concerned About Future Housing: No Difficulty Paying Gas/Electric Bills: No Difficulty Paying for Meds: No Currently Unemployed: No Education: High School Diploma/GED Difficulty w/ Childcare or Family Care: No Living arrangements: with family Additional living arrangements comments: The patient lives with her in [place]. They have 1 adult son and 4 grandsons. 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 Spiritual care concerns: No Meds Home Medications and Allergies Home Medications ?Medication ?Instructions ?Recorded ?Confirmed ?Type apixaban 5 mg tablet (Eliquis) 5 mg PO Q12HR #60 tabs 04/03/22 09/18/25 Rx diltiazem HCl 240 mg 240 mg PO QAM #30 caps 04/0309/18/25 Rx capsule,extended release 24 hr, controlled calcium 600 mg (as 1 cap PO BID 01/22/24 History carbonate)-vitamin D3 12.5 mcg (500 unit) capsule (Calcium with Vit D3) metoprolol succinate 100 mg 100 mg PO DAILY 01/24/25 1 11/19/24 History tablet,extended release 24 hr cyanocobalamin (vitamin B-12) 500 500 mcg PO DAILY 09/18/25 History mcg tablet Allergies Allergy/AdvReac Type Severity Reaction Status Date / Time ginseng Allergy Intermediate Swelling Verified 09/18/25 17:59 of the Eye Vital Signs Vital Signs - 24 hr 09/18/25 14:30 09/18/25 15:13 09/18/25 15:19 Temperature 97.5 F L Pulse Rate 120 H 120 H 124 H Respiratory Rate 16 16 20 Blood Pressure 147/100 H 131/86 Pulse Oximetry 98 97 97 Oxygen Delivery Room Air 09/18/25 15:30 09/18/25 15:31 09/18/25 15:45 Temperature Pulse Rate 136 H 121 H 120 H Respiratory Rate 20 21 H 21 H Blood Pressure 119/89 Pulse Oximetry 96 95 95 Oxygen Delivery 09/18/25 15:48 09/18/25 16:00 09/18/25 16:01 Temperature Pulse Rate 103 H 127 H 121 H Respiratory Rate 21 H 17 21 H Blood Pressure 138/80 117/85 Pulse Oximetry 95 95 94 Oxygen Delivery 09/18/25 16:16 09/18/25 16:32 Temperature Pulse Rate 105 H 107 H Respiratory Rate 18 20 Blood Pressure 134/91 H 129/79 Pulse Oximetry 96 94 Oxygen Delivery Exam 2 Narrative: General: well appearing, appears stated age. HEENT: normocephalic, atraumatic. Mucous membranes moist. EOMI, PERRLA, bilateral sclera anicteric, no conjunctival injection. Neck supple without JVD, lymphadenopathy, or bruit. Respiratory: clear bilaterally. No rales/rhonic/wheezes. Cardiovascular: Regular rate and rhythm, normal S1-S2. No murmurs, rubs, or clicks. PMI is nondisplaced, capillary refill less than 3 second. Abdomen: Soft, round, no pulsatile masses, nondistended and nontender. No rebound, no guarding. Bowel sounds present to all four quadrants. No high pitch or tinkling sounds, resonant to percussion. Extremities: No cyanosis, clubbing, or edema present. Pulses are palpable 2/2. Active ROM to all four extremities. Neuro: Alert and orientated x 4. PERRLA. Cranial nerves 2-12 intact without focal deficit. Skin: Casi area with erythema Psych: pleasant, cooperative, normal speech, normal affect, no hallucinations, no dysarthia Results Labs 09/18/25 15:11 09/18/25 15:11 Labs: Short CBC 09/18/25 Range/Units 15:11 WBC 13.4 H (4.5-10.0) K/mm3 Hgb 17.3 H (12.0-15.0) g/dL Hct 50.6 H (37.0-47.0) % Plt Count 188 (150-375) k/mm3 BMP 09/18/25 15:11 Sodium 137 Potassium 4.1 Chloride 106 Carbon Dioxide 22 BUN 17 Creatinine 0.90 Glucose 112 H Calcium 9.6 Liver Function 09/18/25 Range/Units 15:11 Total Bilirubin 3.0 H (0.2-1.3) mg/dL AST 34 (14-36) U/L ALT 23 (6-35) U/L Alkaline Phosphatase 161 H (38-126) U/L Albumin 4.4 (3.5-5.1) g/dL Quality VTE Prophylaxis VTE prophylaxis: mechanical ordered and pharmacologic ordered Hospitalist [facility] Advance Care Plan I have confirmed that the patient's Advanced Care Plan is present, code status is documented, or surrogate decision maker is listed in patient medical record.: Yes Medication Reconciliation I have utilized all available resources to obtain, update and review the patients current medications (includes all prescriptions, OTC, herbals, cannabis, and nutritional supplements).: Yes
--- NOTE | 2025-09-18 17:01 | WPCEDHO ---
ED Hand Off Checklist All vitals saved:yes IV Site documented:yes All med administrations documented:yes Triage Note Triage Note Pt arrives to the ED c/o abscess 09/18/25 14:30 on left side of her labia. Pt reports that she noticed it a few days ago. Pt has tried a few hot compresses and prid but have had no drainage. Pt has had these before. Allergies No Known Allergies Allergy (Unknown, Verified 04/22/24 09:52) Current Diagnoses Acute vulvitis (09/18/25) Family History (Last Reviewed 09/18/25 @ 16:05 by Arturo Ralph MD) Mother COPD (chronic obstructive pulmonary disease) Father Metastatic lung cancer (metastasis from lung to other site) Alcoholism Administered/Completed Medications Discontinued Medications Diltiazem HCl (Diltiazem Hcl Inj 25 Mg/5 Ml Vial) 10 mg IV PUSH ONCE STA Stop: 09/18/25 16:05 Last Admin: 09/18/25 16:22 Dose: 10 mg Documented By: THANIA Diltiazem HCl (Diltiazem Hcl 12 Hr 60 Mg Cap.12hr) 60 mg PO ONCE STA Stop: 09/18/25 16:05 Last Admin: 09/18/25 16:23 Dose: 60 mg Documented By: THANIA Diphtheria/Tetanus/Acell Pertussis (Tetanus,Diphtheria,Ac Pertussis Adult (0.5 Ml) Boostrix) 0.5 ml IM .ONCE ONE Stop: 09/18/25 16:05 Last Admin: 09/18/25 16:22 Dose: 0.5 ml Documented By: THANIA Cefazolin Sodium 1 gm/ Sodium (Chloride) 50 mls @ 100 mls/hr IVPB ONCE STA Stop: 09/18/25 15:34 Last Infusion: 09/18/25 15:49 Dose: Infused Documented By: Admin: 09/18/25 15:19 Dose: 100 mls/hr Documented By: THANIA Sodium Chloride (Normal Saline Iv) 500 mls @ 999 mls/hr IV CONT .Q31M STA Stop: 09/18/25 16:26 Last Admin: 09/18/25 16:05 Dose: 999 mls/hr Documented By: THANIA Clindamycin Phosphate (Cleocin 900 Mg/D5w 50 Ml) 900 mg in 50 mls @ 50 mls/hr IVPB ONCE ONE Stop: 09/18/25 16:58 Last Admin: 09/18/25 16:23 Dose: 50 mls/hr Documented By: THANIA Morphine Sulfate (Morphine Sulfate (*Crx) 4 Mg/Ml Inj) 4 mg IV PUSH ONCE STA Stop: 09/18/25 14:48 Last Admin: 09/18/25 15:03 Dose: 4 mg Documented By: THANIA Trimethoprim/Sulfamethoxazole (Sulfamethoxazole/Trimethoprim 800/160 Mg Ds Tablet) 1 tab PO ONCE STA Stop: 09/18/25 16:00 Last Admin: 09/18/25 16:05 Dose: 1 tab Documented By: THANIA Notes 09/18/25 15:12 Nurse Note by Renetta Deleon pt placed on a monitor d/t recieving morphine. pt is in afib. pt lives in afib all of the time so this is normal for her. Initialized on 09/18/25 15:12 - END OF NOTE Interventions/Assessments IV / Saline Lock, Insert Start: 09/18/25 14:25 Freq: Status: Active Protocol: Document 09/18/25 15:13 THANIA (Rec: 09/18/25 15:14 THANIA [id number]) IV Assessment Peripheral Access Right Forearm IV Catheter Access Initiated IV Insertion Date 09/18/25 IV Insertion Time 15:14 Catheter Gauge 22 IV Insertion 1 Attempts Ultrasound Used for No Placement IV Site Assessment WNL IV Care and WNL Maintenance Last Vital Signs Temperature 97.5 F L 09/18/25 14:30 Pulse Rate 107 H 09/18/25 16:32 Respiratory Rate 20 09/18/25 16:32 Pulse Oximetry 94 09/18/25 16:32 Blood Pressure 129/79 09/18/25 16:32 Blood Pressure Mean 93 09/18/25 16:32 Blood Pressure Position Sitting 09/18/25 15:13 Oxygen Delivery Room Air 09/18/25 14:30 Weight 62.5 kg 09/18/25 14:30 Last Result - Abnormals Only WBC 13.4 K/mm3 (4.5-10.0) H 09/18/25 15:11 Hgb 17.3 g/dL (12.0-15.0) H 09/18/25 15:11 Hct 50.6 % (37.0-47.0) H 09/18/25 15:11 MPV 10.9 fl (7.4-10.4) H 09/18/25 15:11 Neut % (Auto) 79.5 % (45.5-73.1) H 09/18/25 15:11 Lymph % (Auto) 11.0 % (18.3-44.2) L 09/18/25 15:11 [place] % (Auto) 8.6 % (2.6-8.5) H 09/18/25 15:11 [place] # (Auto) 1.2 K/mm3 (0.1-0.6) H 09/18/25 15:11 Abs Immat Gran (auto) 0.04 K/mm3 (0.00-0.031) H 09/18/25 15:11 Absolute Neuts (auto) 10.7 K/mm3 (1.3-6.7) H 09/18/25 15:11 Glucose 112 mg/dL (65-110) H 09/18/25 15:11 Total Bilirubin 3.0 mg/dL (0.2-1.3) H 09/18/25 15:11 Alkaline Phosphatase 161 U/L (38-126) H 09/18/25 15:11 C-Reactive Protein 2.6 mg/dL (<1.0) H 09/18/25 15:11 Most Recent Suicide Severity Rating Suicide Severity Rating NO RISK INDICATED 09/18/25 14:30
[2025-09-18] MEDS: HYDROcodone/acetaminophen (*CRX) 5-325 MG TABLET 1 TAB PO (17:41)
--- NOTE | 2025-09-18 18:01 | ADMGEN ---
This patient, Loreto Fabian, was admitted to 2 Medical Room 244-. Patient/family oriented to hospital policies and general routines including ID bracelet, bed and alarms, visiting hours, pain management, procedures, bathroom and other care routines, personal items, smoking policy, room service/diet, and visiting hours. Information on how to activate the Rapid Response Team has been discussed. Patient/Family are encouraged to report perceived risks to care and to ask questions if they do not understand what they are told or what they should do.
[2025-09-18] MEDS: APIXABAN 5 MG TABLET PO (20:24)
[2025-09-18] MEDS: SENNA/DOCUSATE SODIUM TABLET 1 TAB PO (20:25)
[2025-09-18] MEDS: KETOROLAC 15 MG/ML VIAL (*BKC) IV PUSH (20:28)
[2025-09-19] VITALS (17 sets, daily range): BP systolic 97–133; BP diastolic 48–73; PULSE 60–110; RESP 14–22; TEMP 36.2–37.7; O2SAT 92–99
[2025-09-19] MEDS: KETOROLAC 15 MG/ML VIAL (*BKC) IV PUSH ×2 (02:00→08:36)
[2025-09-19] MEDS: CLINDAMYCIN 900 MG/D5W 50 ML 900 MG/50 ML PIGGYBACK 50 MG IVPB ×2 (05:20→21:22)
[2025-09-19] MEDS: SULFAMETHOXAZOLE/TRIMETHOPRIM 800/160 MG DS TABLET 1 TAB PO ×2 (08:38→21:21)
[2025-09-19] MEDS: dilTIAZem HCL CD 240 MG CAP.24HR PO (08:38)
[2025-09-19] MEDS: APIXABAN 5 MG TABLET PO (08:38)
[2025-09-19] MEDS: METOPROLOL SUCCINATE EXT REL 100 MG TABCR PO (08:38)
[2025-09-19 08:39] LABS: Hematocrit 46.5 % (37.0-47.0); Hemoglobin 15.4 g/dL (12.0-15.0); Immature Granulocyte Percent A 0.4 % (0-0.5); Lymphocytes Absolute Auto 1.06 K/mm3 (0.9-3.2); Mean Corpuscular HGB Conc 33.1 g/dl (32-36); Mean Corpuscular Hemoglobin 32.2 pg (26-34); Mean Corpuscular Volume 97.3 fl (80-100); Nucleated Red Blood Cells Absolute Auto 0.000 K/mm3 (0.0-0.012); Nucleated Red Blood Cells Perc 0.0 % (0.0-0.2); Platelet Count Result 165 k/mm3 (150-375); Red Blood Count 4.78 M/mm3 (4.2-5.4); White Blood Count 9.7 K/mm3 (4.5-10.0)
--- NOTE | 2025-09-19 10:03 | P.PNOB_ITS ---
[facility]TER - A/P Assessment and plan (1) Vulvar abscess: Code(s): N76.4 - Abscess of vulva Status: Acute Assessment and Plan: Spontaneous ruptured, remaining fluid, patient not able to tolerate exam. Will perform incision and drainage of vulvar abscess under IV sedation. She was informed of the procedure and risk benefits and agrees. She did just eat therefore will be this afternoon. Continue antibiotics. NPO. Postoperative Procedures: Procedures Operation Date: 09/19/25 15:30 <No data on this case meets the specified criteria> Time Spent With Patient Time: Total time spent is greater than 50% in coordination of care (as documented) at patient's floor/unit and/or counseling patient: Time with patient: less than 15 minutes [facility]- PN:Isabella Post-Op Subjective Date/time seen: 09/19/25 10:03 Interval history: She states she feels better than yesterday. She did have leaking from the site which was bloody. Review of Systems 2 Review of Systems: All systems reviewed & are unremarkable except as noted in HPI and below Exam 2 Const: General: no acute distress Resp: Effort & Inspection: normal respiratory effort : Other: Left lower area, able to express blood and small amount pus fluid, fluctuance palpated, tender, she could not tolerate Neuro: General: patient oriented x3 Extrem: General: no calf tenderness Psych: Appearance: grossly normal BL[employer]ATH[employer]TER - PN: Obj Data Vital Signs Vital Signs: Vital Signs - 24 hr 09/18/25 14:30 09/18/25 15:13 09/18/25 15:19 Temperature 97.5 F L Pulse Rate 120 H 120 H 124 H Respiratory Rate 16 16 20 Blood Pressure 147/100 H 131/86 Pulse Oximetry 98 97 97 Oxygen Delivery Room Air 09/18/25 15:30 09/18/25 15:31 09/18/25 15:45 Temperature Pulse Rate 136 H 121 H 120 H Respiratory Rate 20 21 H 21 H Blood Pressure 119/89 Pulse Oximetry 96 95 95 Oxygen Delivery 09/18/25 15:48 09/18/25 16:00 09/18/25 16:01 Temperature Pulse Rate 103 H 127 H 121 H Respiratory Rate 21 H 17 21 H Blood Pressure 138/80 117/85 Pulse Oximetry 95 95 94 Oxygen Delivery 09/18/25 16:16 09/18/25 16:32 09/18/25 17:33 Temperature Pulse Rate 105 H 107 H 109 H Respiratory Rate 18 20 Blood Pressure 134/91 H 129/79 Pulse Oximetry 96 94 Oxygen Delivery 09/18/25 17:45 09/18/25 21:20 09/18/25 22:00 Temperature 97.9 F 97.0 F L Pulse Rate 104 H 92 Respiratory Rate 18 18 Blood Pressure 125/78 119/72 Pulse Oximetry 98 98 97 Oxygen Delivery Room Air 09/19/25 04:00 09/19/25 06:00 09/19/25 08:03 Temperature 97.1 F L Pulse Rate 69 66 70 Respiratory Rate 18 Blood Pressure 112/57 L Pulse Oximetry 96 Oxygen Delivery 09/19/25 08:38 09/19/25 08:38 Temperature Pulse Rate 79 Respiratory Rate 18 Blood Pressure Pulse Oximetry 96 Oxygen Delivery Room Air Intake/Output Intake/Output: Intake & Output 09/16/25 09/17/25 09/18/25 09/19/25 23:59 23:59 23:59 23:59 Intake Total 840 840 Balance 840 840 Meds/Results Medications: Active Medications Generic Name Dose Route Start Last Admin Trade Name Freq PRN Reason Stop Dose Admin Acetaminophen 650 mg 09/18/25 17:00 Acetaminophen 325 Mg Tablet PO Q4H PRN Mild Pain (1-3) or Fever Hydrocodone Bitart/Acetaminophen 1 tab 09/18/25 17:00 09/18/25 17:41 Hydrocodone/Acetaminophen (*Crx) 5-325 Mg Tablet PO 1 tab Q4H PRN Administration Moderate Pain (4-6) Hydrocodone Bitart/Acetaminophen 1 tab 09/18/25 19:41 Hydrocodone/Acetaminophen (*Crx) 10-325 Mg Tablet PO Q4H PRN Pain Rated 7-10 Apixaban 5 mg 09/18/25 21:00 09/19/25 08:38 Apixaban 5 Mg Tablet PO 5 mg Q12HR EMILE Administration Diltiazem HCl 240 mg 09/19/25 09:00 09/19/25 08:38 Diltiazem Hcl Cd 240 Mg Cap.24hr PO 240 mg QAM EMILE Administration Clindamycin Phosphate 900 mg in 50 mls @ 50 mls/hr 09/18/25 23:00 09/19/25 06:20 Cleocin 900 Mg/D5w 50 Ml IVPB Infused Q8HR EMILE Infusion Metoprolol Succinate 100 mg 09/19/25 09:00 09/19/25 08:38 Metoprolol Succinate Ext Rel 100 Mg Tabcr PO 100 mg DAILY EMILE Administration Nicotine 1 patch 09/18/25 19:43 Nicotine (*Pbkc) 21 Mg Patch TRANSDERM DAILY PRN smoker Senna/Docusate Sodium 1 tab 09/18/25 21:00 09/18/25 20:25 Senna/Docusate Sodium Tablet PO 1 tab HS EMILE Administration Trimethoprim/Sulfamethoxazole 1 tab 09/19/25 09:00 09/19/25 08:38 Sulfamethoxazole/Trimethoprim 800/160 Mg Ds Tablet PO 1 tab Q12HR EMILE Administration Labs 09/19/25 08:19 09/18/25 15:11 Labs: Laboratory Results - last 24 hr 09/18/25 09/19/25 15:11 08:19 WBC 13.4 H 9.7 RBC 5.34 4.78 Hgb 17.3 H 15.4 H Hct 50.6 H 46.5 MCV 94.8 97.3 MCH 32.4 32.2 MCHC 34.2 33.1 RDW 13.5 13.3 Plt Count 188 165 MPV 10.9 H 10.9 H Immature Gran % (Auto) 0.3 0.4 Neut % (Auto) 79.5 H 80.6 H Lymph % (Auto) 11.0 L 11.0 L [place] % (Auto) 8.6 H 6.6 Eos % (Auto) 0.2 1.0 Baso % (Auto) 0.4 0.4 Lymph # (Auto) 1.48 1.06 [place] # (Auto) 1.2 H 0.6 Eos # (Auto) 0.0 0.1 Baso # (Auto) 0.1 0.0 Abs Immat Gran (auto) 0.04 H 0.04 H Absolute Neuts (auto) 10.7 H 7.8 H Absolute Nucleated RBC 0.000 0.000 Nucleated RBC % 0.0 0.0 Sodium 137 Potassium 4.1 Chloride 106 Carbon Dioxide 22 Anion Gap 9 BUN 17 Creatinine 0.90 Estim Creat Clear Calc 55 Estimated GFR > 60 Glucose 112 H Calcium 9.6 Total Bilirubin 3.0 H AST 34 ALT 23 Alkaline Phosphatase 161 H C-Reactive Protein 2.6 H Total Protein 7.8 Albumin 4.4
--- NOTE | 2025-09-19 11:55 | P.PNIM_ITS ---
Assessment and Plan Assessment and Plan (1) Atrial fibrillation with RVR: Code(s): I48.91 - Unspecified atrial fibrillation Status: Acute Assessment and Plan: Likely caused by infectious process, given IV diltiazem in ED Telemetry Continue oral diltiazem and metoprolol Patient no longer in A-fib (2) Cellulitis of labia majora: Code(s): N76.2 - Acute vulvitis Status: Acute Assessment and Plan: OBGYN as primary Continue PO Bactrim and IV clindamycin Pain control with bowel protocol Wound care consult Plan for I&D later today (3) Nicotine dependence: Code(s): F17.200 - Nicotine dependence, unspecified, uncomplicated Status: Acute Assessment and Plan: Nicotine patch if needed (4) Polycythemia: Code(s): D75.1 - Secondary polycythemia Status: Acute Assessment and Plan: At baseline from smoking likely Subjective Date/time seen: 09/19/25 11:55 Interval history: Patient plans for I and D later today. She is currently NPO. OBGYN primary on her case. States she is still in quite a bit of pain in the IV pain medication isn't helping a whole lot. She says it does help her get some rest at night. She is not having any nausea, vomiting or diarrhea. She denies chest pain shortness of breath. She does have wheezing on physical exam. She denies any respiratory problems. States that she is just recently getting over a URI. Exam Narrative: GENERAL: Comfortable, no acute distress HENMT: moist mucous membranes NECK: no lymphadenopathy RESPIRATORY: Scattered wheezing throughout lung zones CARDIO: Regular rate and rhythm : Markedly swollen bilateral labia majora with discoloration, no obvious drainage Objective Data Vital Signs Vital Signs: Vital Signs - 24 hr 09/18/25 14:30 09/18/25 15:13 09/18/25 15:19 Temperature 97.5 F L Pulse Rate 120 H 120 H 124 H Respiratory Rate 16 16 20 Blood Pressure 147/100 H 131/86 Pulse Oximetry 98 97 97 Oxygen Delivery Room Air 09/18/25 15:30 09/18/25 15:31 09/18/25 15:45 Temperature Pulse Rate 136 H 121 H 120 H Respiratory Rate 20 21 H 21 H Blood Pressure 119/89 Pulse Oximetry 96 95 95 Oxygen Delivery 09/18/25 15:48 09/18/25 16:00 09/18/25 16:01 Temperature Pulse Rate 103 H 127 H 121 H Respiratory Rate 21 H 17 21 H Blood Pressure 138/80 117/85 Pulse Oximetry 95 95 94 Oxygen Delivery 09/18/25 16:16 09/18/25 16:32 09/18/25 17:33 Temperature Pulse Rate 105 H 107 H 109 H Respiratory Rate 18 20 Blood Pressure 134/91 H 129/79 Pulse Oximetry 96 94 Oxygen Delivery 09/18/25 17:45 09/18/25 21:20 09/18/25 22:00 Temperature 97.9 F 97.0 F L Pulse Rate 104 H 92 Respiratory Rate 18 18 Blood Pressure 125/78 119/72 Pulse Oximetry 98 98 97 Oxygen Delivery Room Air 09/19/25 04:00 09/19/25 06:00 09/19/25 08:03 Temperature 97.1 F L Pulse Rate 69 66 70 Respiratory Rate 18 Blood Pressure 112/57 L Pulse Oximetry 96 Oxygen Delivery 09/19/25 08:38 09/19/25 08:38 Temperature Pulse Rate 79 Respiratory Rate 18 Blood Pressure Pulse Oximetry 96 Oxygen Delivery Room Air Intake/Output Intake/Output: Intake & Output 09/16/25 09/17/25 09/18/25 09/19/25 23:59 23:59 23:59 23:59 Intake Total 840 840 Balance 840 840 Meds/Results Medications: Active Medications Generic Name Dose Route Start Last Admin Trade Name Freq PRN Reason Stop Dose Admin Acetaminophen 650 mg 09/18/25 17:00 Acetaminophen 325 Mg Tablet PO Q4H PRN Mild Pain (1-3) or Fever Hydrocodone Bitart/Acetaminophen 1 tab 09/18/25 17:00 09/18/25 17:41 Hydrocodone/Acetaminophen (*Crx) 5-325 Mg Tablet PO 1 tab Q4H PRN Administration Moderate Pain (4-6) Hydrocodone Bitart/Acetaminophen 1 tab 09/18/25 19:41 Hydrocodone/Acetaminophen (*Crx) 10-325 Mg Tablet PO Q4H PRN Pain Rated 7-10 Apixaban 5 mg 09/18/25 21:00 09/19/25 08:38 Apixaban 5 Mg Tablet PO 5 mg Q12HR EMILE Administration Diltiazem HCl 240 mg 09/19/25 09:00 09/19/25 08:38 Diltiazem Hcl Cd 240 Mg Cap.24hr PO 240 mg QAM EMILE Administration Clindamycin Phosphate 900 mg in 50 mls @ 50 mls/hr 09/18/25 23:00 09/19/25 06:20 Cleocin 900 Mg/D5w 50 Ml IVPB Infused Q8HR EMILE Infusion Metoprolol Succinate 100 mg 09/19/25 09:00 09/19/25 08:38 Metoprolol Succinate Ext Rel 100 Mg Tabcr PO 100 mg DAILY EMILE Administration Nicotine 1 patch 09/18/25 19:43 Nicotine (*Pbkc) 21 Mg Patch TRANSDERM DAILY PRN smoker Senna/Docusate Sodium 1 tab 09/18/25 21:00 09/18/25 20:25 Senna/Docusate Sodium Tablet PO 1 tab HS EMILE Administration Trimethoprim/Sulfamethoxazole 1 tab 09/19/25 09:00 09/19/25 08:38 Sulfamethoxazole/Trimethoprim 800/160 Mg Ds Tablet PO 1 tab Q12HR EMILE Administration Labs Labs: Laboratory Results - last 24 hr 09/18/25 09/19/25 15:11 08:19 WBC 13.4 H 9.7 RBC 5.34 4.78 Hgb 17.3 H 15.4 H Hct 50.6 H 46.5 MCV 94.8 97.3 MCH 32.4 32.2 MCHC 34.2 33.1 RDW 13.5 13.3 Plt Count 188 165 MPV 10.9 H 10.9 H Immature Gran % (Auto) 0.3 0.4 Neut % (Auto) 79.5 H 80.6 H Lymph % (Auto) 11.0 L 11.0 L [place] % (Auto) 8.6 H 6.6 Eos % (Auto) 0.2 1.0 Baso % (Auto) 0.4 0.4 Lymph # (Auto) 1.48 1.06 [place] # (Auto) 1.2 H 0.6 Eos # (Auto) 0.0 0.1 Baso # (Auto) 0.1 0.0 Abs Immat Gran (auto) 0.04 H 0.04 H Absolute Neuts (auto) 10.7 H 7.8 H Absolute Nucleated RBC 0.000 0.000 Nucleated RBC % 0.0 0.0 Sodium 137 Potassium 4.1 Chloride 106 Carbon Dioxide 22 Anion Gap 9 BUN 17 Creatinine 0.90 Estim Creat Clear Calc 55 Estimated GFR > 60 Glucose 112 H Calcium 9.6 Total Bilirubin 3.0 H AST 34 ALT 23 Alkaline Phosphatase 161 H C-Reactive Protein 2.6 H Total Protein 7.8 Albumin 4.4
--- NOTE | 2025-09-19 14:59 | PC.NURSE ---
To OR via stretcher. Voiding without difficulty.
[2025-09-19] MEDS: LACTATED RINGERS 1,000 ML 30 ML IV CONT (15:00)
--- NOTE | 2025-09-19 15:32 | WPDANESEPPF ---
Anes - Initial Pre Proc Eval Procedure: Operation Date: 09/19/25 15:30 Proposed Procedures p Incision and Drainage Vulvar Abscess - Arturo Ralph MD Date/Time: 09/19/25 15:32 Surgeon: Arturo Ralph MD Pre Op Diagnosis: Labial cellulitis Patient Data Age: 64 Gender: F Height: 1.7 m Weight: 62.5 kg Last Vital Signs Temp 36.5 C 09/19/25 14:00 Pulse 81 09/19/25 14:00 Resp 18 09/19/25 14:00 BP 106/65 09/19/25 14:00 Pulse Ox 98 09/19/25 14:00 O2 Del Method Room Air 09/19/25 08:38 Allergies Allergy/AdvReac Type Severity Reaction Status Date / Time ginseng Allergy Intermediate Swelling Verified 09/19/25 15:38 of the Eye Home Medications ?Medication ?Instructions ?Recorded ?Confirmed ?Type apixaban 5 mg tablet (Eliquis) 5 mg PO Q12HR #60 tabs 04/03/22 09/18/25 Rx diltiazem HCl 240 mg 240 mg PO QAM #30 caps 04/03/22 09/18/25 Rx capsule,extended release 24 hr, controlled calcium 600 mg (as 1 cap PO BID 01/22/24 09/18/25 History carbonate)-vitamin D3 12.5 mcg (500 unit) capsule (Calcium with Vit D3) metoprolol succinate 100 mg 100 mg PO DAILY 01/24/25 09/18/25 History tablet,extended release 24 hr cyanocobalamin (vitamin B-12) 500 500 mcg PO DAILY 09/18/25 09/18/25 History mcg tablet Laboratory Tests 09/18/25 09/19/25 15:11 08:19 WBC 9.7 K/mm3 (4.5-10.0) RBC 4.78 M/mm3 (4.2-5.4) Hgb 15.4 H g/dL (12.0-15.0) Hct 46.5 % (37.0-47.0) MCV 97.3 fl (80-100) MCH 32.2 pg (26-34) MCHC 33.1 g/dl (32-36) RDW 13.3 % (11.5-14.5) Plt Count 165 k/mm3 (150-375) MPV 10.9 H fl (7.4-10.4) Immature Gran % (Auto) 0.4 % (0-0.5) Neut % (Auto) 80.6 H % (45.5-73.1) Lymph % (Auto) 11.0 L % (18.3-44.2) Swain % (Auto) 6.6 % (2.6-8.5) Eos % (Auto) 1.0 % (0-4.4) Baso % (Auto) 0.4 % (0.2-1.2) Lymph # (Auto) 1.06 K/mm3 (0.9-3.2) Swain # (Auto) 0.6 K/mm3 (0.1-0.6) Eos # (Auto) 0.1 K/mm3 (0-0.3) Baso # (Auto) 0.0 K/mm3 (0.0-0.1) Abs Immat Gran (auto) 0.04 H K/mm3 (0.00-0.031) Absolute Neuts (auto) 7.8 H K/mm3 (1.3-6.7) Absolute Nucleated RBC 0.000 K/mm3 (0.0-0.012) Nucleated RBC % 0.0 % (0.0-0.2) Sodium 137 mmol/L (137-145) Potassium 4.1 mmol/L (3.4-5.0) Chloride 106 mmol/L (98-107) Carbon Dioxide 22 mmol/L (22-30) Anion Gap 9 mmol/L (4-12) BUN 17 mg/dL (7-17) Creatinine 0.90 mg/dL (0.7-1.0) Estim Creat Clear Calc 55 ml/min Estimated GFR > 60 (59 - ) Glucose 112 H mg/dL (65-110) Calcium 9.6 mg/dL (8.4-10.2) Total Bilirubin 3.0 H mg/dL (0.2-1.3) AST 34 U/L (14-36) ALT 23 U/L (6-35) Alkaline Phosphatase 161 H U/L (38-126) C-Reactive Protein 2.6 H mg/dL (<1.0) Total Protein 7.8 g/dL (6.3-8.2) Albumin 4.4 g/dL (3.5-5.1) Patient hx anesthesia problems: none Family hx anesthesia problems: none Results Review: All pre-operative results and documents have been reviewed as part of the pre-operative evaluation. [facility] Past Medical History Medical History Afib Hypertension Atrial fibrillation with rapid ventricular response Daily consumption of alcohol Nicotine dependence Surgical History Surgical History History of open reduction and internal fixation (ORIF) procedure Repair right 2nd toe fracture. History of repair of right rotator cuff History of colonoscopy with polypectomy Family History Family History Mother COPD (chronic obstructive pulmonary disease) Father Metastatic lung cancer (metastasis from lung to other site) Alcoholism Social History Social History Social History: Surrogate decision maker: Monico Fabian, spouse. Code status: Full code. Smoking packs per day: 1 Smoking cigarettes per day: 20.0 Years smoked: 48 Smoking pack-years: 48.00 Smoking status: Current every day smoker Tobacco type: cigarettes Second hand tobacco smoke exposure: No Alcohol intake: current Drinks per week: 10 Alcohol use details: Beer and wine Substance use: current Substance use type: does not use Lack of Transportation: No Lack of Food: Never True Current Housing: I Have Housing Concerned About Future Housing: No Difficulty Paying Gas/Electric Bills: No Difficulty Paying for Meds: No Currently Unemployed: No Education: High School Diploma/GED Difficulty w/ Childcare or Family Care: No Living arrangements: with family Additional living arrangements comments: The patient lives with her in [place]. They have 1 adult son and 4 grandsons. 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 Spiritual care concerns: No Anes - Eval Final PreProcedure Day of Procedure 09/19/25 15:32 Patient weight: normal Heart: regular rate and rhythm Lungs: clear to auscultation Airway: Mallampati scale class II Neurological: alert and oriented Last oral intake: >/= 8 hours ASA classification: III Emergent: no Anesthetic plan: proceed Anesthesia type and monitoring: general ETT and standard monitoring Results Review: All pre-operative results and documents have been reviewed as part of the pre-operative evaluation. Informed Consent: The patient's anesthetic plan and its attendant risks and benefits were discussed with the patient/family/POA. Questions were solicited and answers provided to the satisfaction of the patient/family/POA.
--- NOTE | 2025-09-19 15:44 | WPDHPUPDATE1 ---
History and Physical Update Update Date/Time: 09/19/25 15:44 History and Physical has been reviewed, including an updated exam of the patient. There are NO changes in the patient's condition. Risks, benefits, and alternatives have been discussed and questions answered. Patient agrees to proceed with procedure.
[2025-09-19] MEDS: CLINDAMYCIN 900 MG/D5W 50 ML 900 MG/50 ML PIGGYBACK 999 MG IVPB (15:49)
[2025-09-19] MEDS: BACITRACIN OINTMENT 15 GM TUBE 1 APPLIC TOPICAL (16:14)
--- NOTE | 2025-09-19 16:15 | W.PM.PROC2 ---
Procedure Note - Detailed Date of Procedure 09/19/25 Pre-op Diagnosis Labial cellulitis/abscess Post-op Diagnosis Same Procedure Performed Incision and drainage of labial abscess on left Surgeon Arturo Ralph MD Anesthesia General Indications Vulvar abscess Findings Small opening inferior labial and smaller pinpoint opening superior, at opening, mostly blood with small amount of thicker purulent fluid, the area tracked up to the pin point opening. Description of Procedure After informed consent was obtained. She was taken to the OR and general endotracheal anesthesia was administered. She was prepped and draped in sterile fashion. The inferior opening was extended. Aerobic and anaerobic cultures obtained. The area tracked approximatedly 3 cm superior and their was a small pinpoint spontaneous opening. The area was irrigated and cleared of clot. No granulation tissue. The superior incision was approximated with 3 simple sutures of 2.0 vicryl. Approximately 1.5 cm inferior of the incision was left open and the area was packed with approximately 8-10 in of half inch iodofoam gauze. Bacitracin and 4x4 used for dressing. Sponge count correct. She was extubated in OR and taken to recover in stable condition. Estimated Blood Loss 10 Drains No Packing Yes (8-10 in iodofoam gauze) Complications No immediate complications Condition Stable Disposition PACU [facility] Billing Surgery - Charge Forward: Surgery Billing
--- NOTE | 2025-09-19 17:15 | PC.NURSE ---
Returned from OR via stretcher.
[2025-09-19] MEDS: SENNA/DOCUSATE SODIUM TABLET 1 TAB PO (21:22)
[2025-09-19] MEDS: ceFAZolin 1 GM in SODIUM CHLORIDE 0.9% IV 50 ML 100 ML IVPB (23:54)
[2025-09-20] VITALS (11 sets, daily range): BP systolic 102–119; BP diastolic 60–73; PULSE 60–119; RESP 16–18; TEMP 36.2–36.7; O2SAT 94–100
[2025-09-20] MEDS: CLINDAMYCIN 900 MG/D5W 50 ML 900 MG/50 ML PIGGYBACK 50 MG IVPB (05:52)
[2025-09-20] MEDS: ceFAZolin 1 GM in SODIUM CHLORIDE 0.9% IV 50 ML 100 ML IVPB (07:57)
[2025-09-20] MEDS: SULFAMETHOXAZOLE/TRIMETHOPRIM 800/160 MG DS TABLET 1 TAB PO ×2 (08:04→20:24)
[2025-09-20] MEDS: METOPROLOL SUCCINATE EXT REL 100 MG TABCR PO (08:04)
[2025-09-20] MEDS: dilTIAZem HCL CD 240 MG CAP.24HR PO (08:04)
[2025-09-20] MEDS: APIXABAN 5 MG TABLET PO ×2 (08:08→20:24)
--- NOTE | 2025-09-20 09:51 | WPDANESPN ---
Anes - Prog Note Post-Op Date/Time: 09/20/25 09:51 Cardiovascular status: normal Respiratory status: normal Airway patency: baseline Mental status: baseline Post-Op hydration status: normal Vital Signs: Last Vital Signs Temp 36.2 C L 09/20/25 06:00 Pulse 118 H 09/20/25 08:08 Resp 16 09/20/25 08:08 BP 103/73 09/20/25 06:00 Pulse Ox 94 09/20/25 08:08 O2 Del Method Room Air 09/20/25 08:08 O2 Flow Rate 6 09/19/25 16:35 Pain Score (VAS): 3 I/O: Intake & Output 09/19/25 09/20/25 09/20/25 23:59 07:59 15:59 Intake Total 550 503.3 526.7 Balance 550 503.3 526.7 Laboratory Tests 09/19/25 08:19 09/18/25 15:11 Post-procedural complaints: none Patient Feedback: Patient satisfied with anesthetic care.
--- NOTE | 2025-09-20 12:40 | P.PNOB_ITS ---
CHILD PROTECTIVE INVESTIGATOR - A/P Assessment and plan (1) Vulvar abscess: Code(s): N76.4 - Abscess of vulva Status: Acute Assessment and Plan: Improved. Packing coming out as expected. Expect it will come out completely within next 24-48 hours, or if wound nurse recommend repacking. Will obtain recommendations from wound nurse. IV antibiotics discontinued. Oral antibiotics started. Cultures pending. Postoperative Procedures: Procedures Operation Date: 09/19/25 15:30 Actual Procedure Side Surgeon p Incision and Drainage Vulvar Abscess Not Applicable Arturo Ralph MD Time Spent With Patient Time: Total time spent is greater than 50% in coordination of care (as documented) at patient's floor/unit and/or counseling patient: Time with patient: less than 15 minutes CHILD PROTECTIVE INVESTIGATOR- PN:Isabella Post-Op Subjective Date/time seen: 09/20/25 12:40 Interval history: She states area is still sore but a little better. She is tolerating diet. Pain meds are helping. Exam 2 Const: General: no acute distress Resp: Effort & Inspection: normal respiratory effort : Other: left labia less swelling and erythema, approximately half packing coming out, less tenderness in area with palp, no fluctuance Neuro: General: patient oriented x3 Extrem: General: no calf tenderness CHILD PROTECTIVE INVESTIGATOR - PN: Obj Data Vital Signs Vital Signs: Vital Signs - 24 hr 09/19/25 14:00 09/19/25 15:35 09/19/25 16:23 Temperature 97.7 F 99.9 F H 98.4 F Pulse Rate 81 78 100 Respiratory Rate 18 16 22 H Blood Pressure 106/65 133/66 101/60 Pulse Oximetry 98 99 99 Oxygen Delivery Room Air Simple Face Mask Oxygen Flow Rate 6 09/19/25 16:35 09/19/25 16:40 09/19/25 16:50 Temperature Pulse Rate 74 72 Respiratory Rate 20 14 Blood Pressure 98/60 L 104/71 Pulse Oximetry 99 95 Oxygen Delivery Simple Face Mask Room Air Room Air Oxygen Flow Rate 6 09/19/25 17:05 09/19/25 17:20 09/19/25 18:17 Temperature 97.6 F Pulse Rate 82 110 H Respiratory Rate 14 16 18 Blood Pressure 123/61 97/48 L Pulse Oximetry 92 92 95 Oxygen Delivery Room Air Room Air Oxygen Flow Rate 09/19/25 20:00 09/19/25 20:00 09/19/25 22:00 Temperature 97.1 F L Pulse Rate 76 60 Respiratory Rate 18 Blood Pressure 107/73 Pulse Oximetry 97 Oxygen Delivery Room Air Oxygen Flow Rate 09/20/25 00:00 09/20/25 04:00 09/20/25 06:00 Temperature 97.1 F L Pulse Rate 119 H 92 86 Respiratory Rate 16 Blood Pressure 103/73 Pulse Oximetry 94 Oxygen Delivery Oxygen Flow Rate 09/20/25 08:02 09/20/25 08:04 09/20/25 08:08 Temperature Pulse Rate 84 118 H 118 H Respiratory Rate 16 Blood Pressure Pulse Oximetry 94 Oxygen Delivery Room Air Oxygen Flow Rate 09/20/25 12:04 Temperature Pulse Rate 90 Respiratory Rate Blood Pressure Pulse Oximetry Oxygen Delivery Oxygen Flow Rate Intake/Output Intake/Output: Intake & Output 09/17/25 09/18/25 09/19/25 09/20/25 23:59 23:59 23:59 23:59 Intake Total 840 1440 1030.0 Balance 840 1440 1030.0 Meds/Results Medications: Active Medications Generic Name Dose Route Start Last Admin Trade Name Freq PRN Reason Stop Dose Admin Acetaminophen 650 mg 09/18/25 17:00 Acetaminophen 325 Mg Tablet PO Q4H PRN Mild Pain (1-3) or Fever Hydrocodone Bitart/Acetaminophen 1 tab 09/18/25 17:00 09/18/25 17:41 Hydrocodone/Acetaminophen (*Crx) 5-325 Mg Tablet PO 1 tab Q4H PRN Administration Moderate Pain (4-6) Hydrocodone Bitart/Acetaminophen 1 tab 09/18/25 19:41 Hydrocodone/Acetaminophen (*Crx) 10-325 Mg Tablet PO Q4H PRN Pain Rated 7-10 Apixaban 5 mg 09/18/25 21:00 09/20/25 08:08 Apixaban 5 Mg Tablet PO 5 mg Q12HR EMILE Administration Diltiazem HCl 240 mg 09/19/25 09:00 09/20/25 08:04 Diltiazem Hcl Cd 240 Mg Cap.24hr PO 240 mg QAM EMILE Administration Clindamycin Phosphate 900 mg in 50 mls @ 50 mls/hr 09/18/25 23:00 09/20/25 06:52 Cleocin 900 Mg/D5w 50 Ml IVPB Infused Q8HR EMILE Infusion Cefazolin Sodium 1 gm/ Sodium 50 mls @ 100 mls/hr 09/19/25 16:00 09/20/25 08:45 Chloride IVPB Infused Q8H EMILE Infusion Metoprolol Succinate 100 mg 09/19/25 09:00 09/20/25 08:04 Metoprolol Succinate Ext Rel 100 Mg Tabcr PO 100 mg DAILY EMILE Administration Nicotine 1 patch 09/18/25 19:43 Nicotine (*Rommel) 21 Mg Patch TRANSDERM DAILY PRN smoker Senna/Docusate Sodium 1 tab 09/18/25 21:00 09/19/25 21:22 Senna/Docusate Sodium Tablet PO 1 tab HS EMILE Administration Trimethoprim/Sulfamethoxazole 1 tab 09/19/25 09:00 09/20/25 08:04 Sulfamethoxazole/Trimethoprim 800/160 Mg Ds Tablet PO 1 tab Q12HR EMILE Administration Labs 09/19/25 08:19 09/18/25 15:11
--- NOTE | 2025-09-20 13:17 | PCWOUND ---
WOCN Note Spoke with Dr. Ralph about wound care recommendations. Due to the length of the track, packing is still recommended. Unsure if patient will be able to perform this task independently due to location of the wound and patient not sure if her friend will help out. Will run patient for out patient wound center to see if insurance will cover her to come in 2-3 times per week for dressing changes and wound management.
--- NOTE | 2025-09-20 13:21 | PM.IMPN2 ---
Assessment and Plan Assessment and Plan (1) Atrial fibrillation with RVR: Code(s): I48.91 - Unspecified atrial fibrillation Status: Acute (2) Cellulitis of labia majora: Code(s): N76.2 - Acute vulvitis Status: Acute (3) Nicotine dependence: Code(s): F17.200 - Nicotine dependence, unspecified, uncomplicated Status: Acute (4) Polycythemia: Code(s): D75.1 - Secondary polycythemia Status: Acute Plan 64 year old female past medical history AFib, hypertension, left-sided labial abscess, presented with vulvar pain and swelling. Medicine team was consulted with AFib with an RVR (1) Atrial fibrillation with RVR: Likely in setting of infection Continue with oral Cardizem, metoprolol (2) Cellulitis of labia majora/acute vulvitis: OBGYN as primary Antibiotic as per primary team Pain control with bowel protocol Wound care consult Status post I&D 3.Code status: Full (4) disposition: As per primary team Time Spent With Patient Time with patient: 15 - 25 minutes Subjective Date/time seen: 09/20/25 13:21 Interval history: No acute events overnight Review of Systems Review of Systems: All systems reviewed & are unremarkable except as noted in HPI and below Exam Narrative: GENERAL: Comfortable, no acute distress HENMT: moist mucous membranes NECK: no lymphadenopathy RESPIRATORY: Scattered wheezing throughout lung zones CARDIO: Regular rate and rhythm : Markedly swollen bilateral labia majora with discoloration, no obvious drainage Objective Data Vital Signs Vital Signs: Vital Signs - 24 hr 09/19/25 14:00 09/19/25 15:35 09/19/25 16:23 Temperature 97.7 F 99.9 F H 98.4 F Pulse Rate 81 78 100 Respiratory Rate 18 16 22 H Blood Pressure 106/65 133/66 101/60 Pulse Oximetry 98 99 99 Oxygen Delivery Room Air Simple Face Mask Oxygen Flow Rate 6 09/19/25 16:35 09/19/25 16:40 09/19/25 16:50 Temperature Pulse Rate 74 72 Respiratory Rate 20 14 Blood Pressure 98/60 L 104/71 Pulse Oximetry 99 95 Oxygen Delivery Simple Face Mask Room Air Room Air Oxygen Flow Rate 6 09/19/25 17:05 09/19/25 17:20 09/19/25 18:17 Temperature 97.6 F Pulse Rate 82 110 H Respiratory Rate 14 16 18 Blood Pressure 123/61 97/48 L Pulse Oximetry 92 92 95 Oxygen Delivery Room Air Room Air Oxygen Flow Rate 09/19/25 20:00 09/19/25 20:00 09/19/25 22:00 Temperature 97.1 F L Pulse Rate 76 60 Respiratory Rate 18 Blood Pressure 107/73 Pulse Oximetry 97 Oxygen Delivery Room Air Oxygen Flow Rate 09/20/25 00:00 09/20/25 04:00 09/20/25 06:00 Temperature 97.1 F L Pulse Rate 119 H 92 86 Respiratory Rate 16 Blood Pressure 103/73 Pulse Oximetry 94 Oxygen Delivery Oxygen Flow Rate 09/20/25 08:02 09/20/25 08:04 09/20/25 08:08 Temperature Pulse Rate 84 118 H 118 H Respiratory Rate 16 Blood Pressure Pulse Oximetry 94 Oxygen Delivery Room Air Oxygen Flow Rate 09/20/25 12:04 Temperature Pulse Rate 90 Respiratory Rate Blood Pressure Pulse Oximetry Oxygen Delivery Oxygen Flow Rate Intake/Output Intake/Output: Intake & Output 09/17/25 09/18/25 09/19/25 09/20/25 23:59 23:59 23:59 23:59 Intake Total 840 1440 1150.0 Balance 840 1440 1150.0 Meds/Results Medications: Active Medications Generic Name Dose Route Start Last Admin Trade Name Freq PRN Reason Stop Dose Admin Acetaminophen 650 mg 09/18/25 17:00 Acetaminophen 325 Mg Tablet PO Q4H PRN Mild Pain (1-3) or Fever Hydrocodone Bitart/Acetaminophen 1 tab 09/18/25 17:00 09/18/25 17:41 Hydrocodone/Acetaminophen (*Crx) 5-325 Mg Tablet PO 1 tab Q4H PRN Administration Moderate Pain (4-6) Hydrocodone Bitart/Acetaminophen 1 tab 09/18/25 19:41 Hydrocodone/Acetaminophen (*Crx) 10-325 Mg Tablet PO Q4H PRN Pain Rated 7-10 Apixaban 5 mg 09/18/25 21:00 09/20/25 08:08 Apixaban 5 Mg Tablet PO 5 mg Q12HR EMILE Administration Clindamycin HCl 300 mg 09/20/25 18:00 Clindamycin Hcl 150 Mg Cap PO Q6HR EMILE Diltiazem HCl 240 mg 09/19/25 09:00 09/20/25 08:04 Diltiazem Hcl Cd 240 Mg Cap.24hr PO 240 mg QAM EMILE Administration Metoprolol Succinate 100 mg 09/19/25 09:00 09/20/25 08:04 Metoprolol Succinate Ext Rel 100 Mg Tabcr PO 100 mg DAILY EMILE Administration Nicotine 1 patch 09/18/25 19:43 Nicotine (*Pbkc) 21 Mg Patch TRANSDERM DAILY PRN smoker Senna/Docusate Sodium 1 tab 09/18/25 21:00 09/19/25 21:22 Senna/Docusate Sodium Tablet PO 1 tab HS EMILE Administration Trimethoprim/Sulfamethoxazole 1 tab 09/20/25 21:00 Sulfamethoxazole/Trimethoprim 800/160 Mg Ds Tablet PO Q12HR EMILE
[2025-09-20] MEDS: CLINDAMYCIN HCL 150 MG CAP 300 MG PO ×2 (17:51→23:50)
[2025-09-20] MEDS: SENNA/DOCUSATE SODIUM TABLET 1 TAB PO (20:24)
[2025-09-20] MEDS: diphenhydrAMINE HCl CAP 25 MG CAPSULE 50 MG PO (23:50)
--- NOTE | 2025-09-20 23:54 | PC.NURSE ---
Patient notified nurse that she is having increase itching and burning sensation. Patient stated that she was having itching this morning after receiving IV antibiotics. Skin assessed; No other signs or symptoms of allergic reaction. RN passed complaint off to oncoming nurse to follow up. IV antibiotics were discontinued. Patient stating this shift of itching and burning sensation. Addressed concerns to on-call OBGYN provider Siria. Orders to continue antibiotic therapy and have provider address in AM. PRN Benadryl to alleviate symptoms. Patient ok with orders.
[2025-09-21] VITALS: PULSE 91
[2025-09-21 05:53] VITALS: BP 110/54; PULSE 98; RESP 16; TEMP 36.5; O2SAT 99
[2025-09-21] MEDS: diphenhydrAMINE HCl CAP 25 MG CAPSULE 50 MG PO (05:53)
[2025-09-21] MEDS: CLINDAMYCIN HCL 150 MG CAP 300 MG PO (05:53)
[2025-09-21] MEDS: APIXABAN 5 MG TABLET PO (07:44)
[2025-09-21] MEDS: dilTIAZem HCL CD 240 MG CAP.24HR PO (07:44)
[2025-09-21] MEDS: SULFAMETHOXAZOLE/TRIMETHOPRIM 800/160 MG DS TABLET 1 TAB PO (07:44)
[2025-09-21 07:51] VITALS: PULSE 92
[2025-09-21] MEDS: METOPROLOL SUCCINATE EXT REL 100 MG TABCR PO (07:51)
[2025-09-21 07:55] VITALS: PULSE 92; RESP 16; O2SAT 99
[2025-09-21 08:00] VITALS: PULSE 105
[2025-09-21] MEDS: HYDROcodone/acetaminophen (*CRX) 10-325 MG TABLET 1 TAB PO (10:57)
--- NOTE | 2025-09-21 11:42 | P.PNOB_ITS ---
MECHANICAL UNIT REPAIRER - A/P Assessment and plan (1) Vulvar abscess: Code(s): N76.4 - Abscess of vulva Status: Acute Assessment and Plan: Healing well. Wound nurse following. Will discharge today. Continue oral antibiotics. Follow up with me in 1-2 weeks. Postoperative Procedures: Procedures Operation Date: 09/19/25 15:30 Actual Procedure Side Surgeon p Incision and Drainage Vulvar Abscess Not Applicable Arturo Ralph MD Time Spent With Patient Time: Total time spent is greater than 50% in coordination of care (as documented) at patient's floor/unit and/or counseling patient: Time with patient: less than 15 minutes MECHANICAL UNIT REPAIRER- PN:Subj Post-Op Subjective Date/time seen: 09/21/25 11:42 Interval history: She states pain is much better, minimal. Less drainage, the packing did come completely out. Had allergy symptoms to clindamycin, stopped. Review of Systems 2 Review of Systems: All systems reviewed & are unremarkable except as noted in HPI and below Constitutional: Constitutional: Reports no additional constitutional complaints Exam 2 Const: General: comfortable and no acute distress Resp: Effort & Inspection: normal respiratory effort : Other: labia decreased swelling, minimal erythema, incisions intact, area probed 2 in, decreasing well no drainage MECHANICAL UNIT REPAIRER - PN: Obj Data Vital Signs Vital Signs: Vital Signs - 24 hr 09/20/25 12:04 09/20/25 13:54 09/20/25 16:02 Temperature 98.0 F Pulse Rate 90 65 100 Respiratory Rate 18 Blood Pressure 102/62 Pulse Oximetry 96 Oxygen Delivery 09/20/25 20:00 09/20/25 20:00 09/20/25 21:50 Temperature 97.7 F Pulse Rate 89 60 Respiratory Rate 16 Blood Pressure 119/60 Pulse Oximetry 100 Oxygen Delivery Room Air 09/21/25 00:00 09/21/25 05:53 09/21/25 07:51 Temperature 97.7 F Pulse Rate 91 98 92 Respiratory Rate 16 Blood Pressure 110/54 L Pulse Oximetry 99 Oxygen Delivery 09/21/25 07:55 09/21/25 08:00 Temperature Pulse Rate 92 105 H Respiratory Rate 16 Blood Pressure Pulse Oximetry 99 Oxygen Delivery Room Air Intake/Output Intake/Output: Intake & Output 09/18/25 09/19/25 09/20/25 09/21/25 23:59 23:59 23:59 23:59 Intake Total 840 1440 2190.0 590 Balance 840 1440 2190.0 590 Meds/Results Medications: Active Medications Generic Name Dose Route Start Last Admin Trade Name Freq PRN Reason Stop Dose Admin Acetaminophen 650 mg 09/18/25 17:00 Acetaminophen 325 Mg Tablet PO Q4H PRN Mild Pain (1-3) or Fever Hydrocodone Bitart/Acetaminophen 1 tab 09/18/25 17:00 09/18/25 17:41 Hydrocodone/Acetaminophen (*Crx) 5-325 Mg Tablet PO 1 tab Q4H PRN Administration Moderate Pain (4-6) Hydrocodone Bitart/Acetaminophen 1 tab 09/18/25 19:41 09/21/25 10:57 Hydrocodone/Acetaminophen (*Crx) 10-325 Mg Tablet PO 1 tab Q4H PRN Administration Pain Rated 7-10 Apixaban 5 mg 09/18/25 21:00 09/21/25 07:44 Apixaban 5 Mg Tablet PO 5 mg Q12HR EMILE Administration Diltiazem HCl 240 mg 09/19/25 09:00 09/21/25 07:44 Diltiazem Hcl Cd 240 Mg Cap.24hr PO 240 mg QAM EMILE Administration Diphenhydramine HCl 50 mg 09/20/25 21:15 09/21/25 05:53 Diphenhydramine Hcl Cap 25 Mg Capsule PO 50 mg Q6H PRN Administration Itching Metoprolol Succinate 100 mg 09/19/25 09:00 09/21/25 07:51 Metoprolol Succinate Ext Rel 100 Mg Tabcr PO 100 mg DAILY EMILE Administration Nicotine 1 patch 09/18/25 19:43 Nicotine (*Pbkc) 21 Mg Patch TRANSDERM DAILY PRN smoker Senna/Docusate Sodium 1 tab 09/18/25 21:00 09/20/25 20:24 Senna/Docusate Sodium Tablet PO 1 tab HS EMILE Administration Trimethoprim/Sulfamethoxazole 1 tab 09/20/25 21:00 09/21/25 07:44 Sulfamethoxazole/Trimethoprim 800/160 Mg Ds Tablet PO 1 tab Q12HR EMILE Administration Labs 09/19/25 08:19 09/18/25 15:11
--- NOTE | 2025-09-21 11:48 | P.DS_ITS ---
DS: Admitting Diagnosis Discharge Date 09/21/25 Admitting Diagnosis Vulvar abscess DS: Discharge Diagnosis Discharge Diagnosis (1) Vulvar abscess: Code(s): N76.4 - Abscess of vulva Status: Acute DS: Summary Hospital Course Reason for hospitalization: Vulvar abscess Hospital Course: 64 y/o female presented to ED with c/o vulvar abscess. She was started on IV antibiotics. She had spontaneous partial rupture of abscess. She was taken for surgery for incision and drainage of abscess. She did well post op. Pain improved. She was continued on antibiotics. She had a consult with wound nurse. Status at Discharge Functional status at discharge: independent ambulation Time Spent with Patient Time attestation: Total time spent providing and/or coordinating discharge services: Exam Const: General: comfortable and no acute distress Resp: Effort & Inspection: normal respiratory effort : Other: labia decreased swelling, minimal erythema, incisions intact, area probed 2 in, decreasing well no drainage Discharge Plan Discharge Attending physician on discharge: Arturo Ralph Consulting providers: Julianna Post; Meng Betancur Rafe M.; Dinorah Mendoza; Bernardo Richards; Paco John; Gia Ruiz Discharging Clinician: Arturo Ralph Anticipated Discharge Date/Time: 09/21/25 11:48 Patient Disposition: Home Activity: may shower and pelvic rest Diet: as tolerated Patient Instructions: Antibiotic Form, Apixaban (By mouth) Patient Language: Australian Stand Alone Forms: General Discharge Information Follow-up/Referrals: Arturo Ralph MD [Physician, MICROSCOPIST] - 10/04/25 1:30 pm Discharge Medications: New sulfamethoxazole-trimethoprim 800-160 mg Tablet 1 tab PO Q12HR Qty: 14 0RF cephalexin 500 mg capsule 500 mg PO Q8H 7 Days Qty: 21 0RF Continued calcium carbonate-vitamin D3 [Calcium 600 with Vitamin D3] 600 mg-12.5 mcg (500 unit) capsule 1 cap PO BID metoprolol succinate 100 mg tablet extended release 24 hr 100 mg PO DAILY diltiazem HCl 240 mg Capsule,Ext.Rel 24h Degradable 240 mg PO QAM Qty: 30 1RF Eliquis 5 mg Tablet 5 mg PO Q12HR Qty: 60 1RF cyanocobalamin (vitamin B-12) 500 mcg tablet 500 mcg PO DAILY Date of admission: 09/19/25 16:07 Primary Care Provider: Bobbi Ahuja Admitting Provider: Arturo Ralph Attending physician on admission: Arturo Ralph Condition: Stable
[2025-09-21 12:04] VITALS: PULSE 111
--- NOTE | 2025-10-12 20:56 | P.PNOB_ITS ---
OB - Triage/Final Diagnosis Visit Information Comments/Additional reasons for admission: I have assessed the risk for this patient, Loreto Fabian, and determined that she would benefit from observation care. Evaluation Laboratory results: Laboratory Tests 09/18/25 09/19/25 15:11 08:19 WBC 13.4 H 9.7 RBC 5.34 4.78 Hgb 17.3 H 15.4 H Hct 50.6 H 46.5 MCV 94.8 97.3 MCH 32.4 32.2 MCHC 34.2 33.1 RDW 13.5 13.3 Plt Count 188 165 MPV 10.9 H 10.9 H Immature Gran % (Auto) 0.3 0.4 Neut % (Auto) 79.5 H 80.6 H Lymph % (Auto) 11.0 L 11.0 L Har[place]on % (Auto) 8.6 H 6.6 Eos % (Auto) 0.2 1.0 Baso % (Auto) 0.4 0.4 Lymph # (Auto) 1.48 1.06 Har[place]on # (Auto) 1.2 H 0.6 Eos # (Auto) 0.0 0.1 Baso # (Auto) 0.1 0.0 Abs Immat Gran (auto) 0.04 H 0.04 H Absolute Neuts (auto) 10.7 H 7.8 H Absolute Nucleated RBC 0.000 0.000 Nucleated RBC % 0.0 0.0 Sodium 137 Potassium 4.1 Chloride 106 Carbon Dioxide 22 Anion Gap 9 BUN 17 Creatinine 0.90 Estim Creat Clear Calc 55 Estimated GFR > 60 Glucose 112 H Calcium 9.6 Total Bilirubin 3.0 H AST 34 ALT 23 Alkaline Phosphatase 161 H C-Reactive Protein 2.6 H Total Protein 7.8 Albumin 4.4 Final Diagnosis (1) Vulvar abscess: Code(s): N76.4 - Abscess of vulva Status: Acute
== END 2025-09-21 12:40 | disposition home or self-care (01) | DRG 746 ==
LOC: ANHED 16:33 → ANH2MED 17:00
PROVIDERS: Admitting Provider Obstetrics & Gynecology; PCP Nurse Practitioner Family; Visit Provider Obstetrics & Gynecology
PROC: 0U9M0ZZ Drainage of Vulva, Open Approach (ICD-10-PCS; principal; 2025-09-19 15:30)
DX: N76.4 Abscess of vulva (principal); I48.20 Chronic atrial fibrillation, unspecified; N76.2 Acute vulvitis; I10 Essential (primary) hypertension; D75.1 Secondary polycythemia; F17.210 Nicotine dependence, cigarettes, uncomplicated; Z79.01 Long term (current) use of anticoagulants
CPT/HCPCS: 36415; 80053; 85025; 86140; 87070; 87075; 87205; 90471; 90715; 93005; 96365; 96367; 96375; 99285; A9270; G0378; J0330; J0690; J1163; J1885; J2003; J2250; J2270; J2405; J2704; J3010; J7040; J7120